=== PATIENT | female | born 1950 | race Caucasian/White ===

== ENCOUNTER 2020-03-14 14:07 | Inpatient (IN) | payer MEDICARE, MEDICAID ==
[2020-03-14] MEDS ORDERED: Albuterol/Ipratropium 3.0-0.5 MG/3 ML Neb Soln NEB ONE ×2 (14:12→15:27)
[2020-03-14] MEDS ORDERED: methylPREDNISolone Sodium Succinate 125 MG/2 ML SDV IVPUSH ONE (14:13)
--- NOTE | 2020-03-14 14:19 | EDM.PDOC ---
ED HPI GENERAL MEDICAL PROBLEM - General Chief Complaint: Respiratory Problem Stated Complaint: [facility] Time Seen by Provider: 03/14/20 14:10 Source of Information: Reports: Patient, EMS History Limitations: Reports: No Limitations - History of Present Illness INITIAL COMMENTS - FREE TEXT/NARRATIVE: Angie is a 70 year old female, hx of COPD, presents to the ED today via EMS with progressive sob over the last few days. Patient denies any chest pain, fever, more productive cough. Patient denies any sick exposures, she no longer smokes. Patient is on 3 liters of oxygen chronically. Patient is not on oral steroids, does not have a neb machine at home. Any activity makes her worse. Onset: Gradual Duration: Day(s): (5) generalized Pain Score (Numeric/FACES): 3 - Related Data Allergies Allergy/AdvReac Type Severity Reaction Status Date / Time Penicillins Allergy Rash Verified 03/14/20 14:09 Home Meds: Home Meds Ascorbic Acid [Vitamin C] 1,000 mg PO DAILY 09/10/13 [History] Aspirin [[place] Chewable Aspirin] 1 tab PO DAILY 09/10/13 [History] Cholecalciferol (Vitamin D3) [Vitamin D-3] 2,000 unit PO DAILY 09/10/13 [History ] Multivitamin with Minerals [Multiple Vitamin] 1 tab PO DAILY 09/10/13 [History] Tiotropium [Spiriva Handihaler] 1 cap INH DAILY 09/10/13 [History] Levothyroxine Sodium [Synthroid] 100 mcg PO ACBREAKFAST 02/25/17 [History] Metoprolol Succinate [Toprol XL] 25 mg PO DAILY 02/25/17 [History] hydroCHLOROthiazide [Hydrochlorothiazide] 25 mg PO DAILY 02/25/17 [History] Calcium/Magnesium/Zinc [Fmimmlm-Jndatzyig-Oqwn Tab] 1 each PO DAILY 07/04/18 [ History] Citalopram Hydrobromide [Celexa] 10 mg PO DAILY 07/04/18 [History] atorvaSTATin [Lipitor] 40 mg PO ASDIRECTED 07/04/18 [History] Omeprazole 20 mg PO DAILY 03/14/20 [History] ED ROS GENERAL - Review of Systems Review Of Systems: Comprehensive ROS is negative, except as noted in HPI. ED EXAM, GENERAL - Physical Exam Exam: See Below Exam Limited By: No Limitations General Appearance: Anxious, Moderate Distress (Respiratory) Head: Atraumatic Neck: Normal Inspection, Supple Respiratory/Chest: Respiratory Distress, Other (moving little to no air on arrival throughout lung rodriguez) Cardiovascular: Tachycardia GI/Abdominal: Normal Bowel Sounds, Soft, Non-Tender Extremities: Normal Inspection Neurological: Alert, Oriented, CN II-XII Intact Psychiatric: Normal Affect, Anxious Skin Exam: Warm, Dry, Intact Lymphatic: No Adenopathy Course - Vital Signs Last Recorded V/S: Last Vital Signs Temp 36.1 C 03/14/20 14:14 Pulse 108 H 03/14/20 15:38 Resp 12 03/14/20 15:38 BP 118/62 03/14/20 15:38 Pulse Ox 95 03/14/20 15:38 Angie is a 70 year old female, hx of COPD, increasing sob over the last few days , worse today. Please refer to HPI and focused exam. Patient arrives here tachypneic, worse with activity. Patient is mildly tachycardic. Normotensive. Concern for COPD exacerbation, however, non pitting edema present with her aortic aneurysm/heart hx concern for CHF exacerbation component, vs. pneumonia. Patient not hypoxic on 3 liters here however very tachypneic especially with any movement or conversation. VBG returns with acidosis, PH of 7.153, normal white count, stable HGB for patient, x-ray returns with ? atelectasis vs. infiltrate. Pro-BNP elevated, 2700. Patient started on Rocephin and Zithromax to cover for CAP/COPD exacerbation pending procalcitonin. Patient also received 125 mg of Solumedrol. Patient's breathing vastly improved after second Duo Neb. Will hold off on any bipap for now and watch closely. Patient updated on plan of care and is agreeable, patient admitted to Dr. Gómez, hospitalist. - Orders/Labs/Meds Orders: Active Orders 24 hr Category Date Time Status BIPAP Adult [RT BiPAP/CPAP] [RC] ASDIRECTED Care 03/14/20 15:50 Active RT Aerosol Therapy [RC] ASDIRECTED Care 03/14/20 14:12 Active RT Aerosol Therapy [RC] ASDIRECTED Care 03/14/20 15:27 Active BLOOD GAS ARTERIAL [BG] Stat Lab 03/14/20 15:48 Ordered CORONAVIRUS COVID-19, NAMITA Stat Lab 03/14/20 15:49 Ordered PROCALCITONIN [CHEM] Stat Lab 03/14/20 15:48 Ordered Azithromycin [Zithromax] 500 mg Med 03/14/20 15:39 Active Sodium Chloride 0.9% [Normal Saline] 250 ml IV ONETIME cefTRIAXone [Rocephin] 2 gm Med 03/14/20 15:38 Active Sodium Chloride 0.9% [Normal Saline] 50 ml IV ONETIME Medication Orders Azithromycin 500 mg/ Sodium (Chloride) 250 mls @ 250 mls/hr IV ONETIME ONE Stop: 03/14/20 16:38 Ceftriaxone Sodium 2 gm/ (Sodium Chloride) 50 mls @ 100 mls/hr IV ONETIME ONE Stop: 03/14/20 16:07 Labs: Laboratory Tests 03/14/20 03/14/20 03/14/20 Range/Units 14:14 14:27 14:27 WBC 4.5 (4.5-11.0) K/uL RBC 3.39 (3.30-5.50) M/uL Hgb 11.1 L (12.0-15.0) g/dL Hct 38.5 (36.0-48.0) % MCV 114 H (80-98) fL MCH 33 H (27-31) pg MCHC 29 L (32-36) % Plt Count 121 L (150-400) K/uL Neut % (Auto) 72 H (36-66) % Lymph % (Auto) 14 L (24-44) % [place] % (Auto) 13 H (2-6) % Eos % (Auto) 1 L (2-4) % Baso % (Auto) 0 (0-1) % ABG Hemoglobin (12.0-16.0) g/dL ABG Oxyhemoglobin % ABG Carboxyhemoglobin (0.0-1.6) % ABG Methemoglobin % VBG pH (7.350-7.450) VBG pCO2 mm/Hg VBG pO2 mm/Hg VBG HCO3 mmol/L VBG Total CO2 mmol/L VBG O2 Saturation VBG O2 Content %vol VBG Base Excess mm/L O2 Delivery Device Sodium (140-148) mmol/L Potassium (3.6-5.2) mmol/L Chloride (100-108) mmol/L Carbon Dioxide (21-32) mmol/L Anion Gap (5.0-14.0) mmol/L BUN (7-18) mg/dL Creatinine (0.6-1.0) mg/dL Est Cr Clr Drug Dosing mL/min Estimated GFR (MDRD) (>60) Glucose (74-106) mg/dL Lactic Acid (0.4-2.0) mmol/L Calcium (8.5-10.1) mg/dL Total Bilirubin (0.2-1.0) mg/dL AST (15-37) U/L ALT (12-78) U/L Alkaline Phosphatase (46-116) U/L Troponin I < 0.017 (0.000-0.056) ng/mL NT-Pro-B Natriuret Pep 2715 H (5-125) pg/mL Total Protein (6.4-8.2) g/dL Albumin (3.4-5.0) g/dL Globulin (2.3-3.5) g/dL Albumin/Globulin Ratio (1.2-2.2) 03/14/20 03/14/20 03/14/20 Range/Units 14:27 14:27 14:30 WBC (4.5-11.0) K/uL RBC (3.30-5.50) M/uL Hgb (12.0-15.0) g/dL Hct (36.0-48.0) % MCV (80-98) fL MCH (27-31) pg MCHC (32-36) % Plt Count (150-400) K/uL Neut % (Auto) (36-66) % Lymph % (Auto) (24-44) % [place] % (Auto) (2-6) % Eos % (Auto) (2-4) % Baso % (Auto) (0-1) % ABG Hemoglobin 9.6 L (12.0-16.0) g/dL ABG Oxyhemoglobin 30.9 % ABG Carboxyhemoglobin 3.4 H (0.0-1.6) % ABG Methemoglobin 0.7 % VBG pH 7.153 L (7.350-7.450) VBG pCO2 113 mm/Hg VBG pO2 24.8 mm/Hg VBG HCO3 38.0 mmol/L VBG Total CO2 38.1 mmol/L VBG O2 Saturation 32.2 VBG O2 Content 4.2 %vol VBG Base Excess 6.9 mm/L O2 Delivery Device Nasal cannula Sodium 144 (140-148) mmol/L Potassium 4.1 (3.6-5.2) mmol/L Chloride 99 L (100-108) mmol/L Carbon Dioxide > 45 H (21-32) mmol/L Anion Gap 4.1 L (5.0-14.0) mmol/L BUN 23 H (7-18) mg/dL Creatinine 0.7 (0.6-1.0) mg/dL Est Cr Clr Drug Dosing 67.29 mL/min Estimated GFR (MDRD) > 60 (>60) Glucose 102 (74-106) mg/dL Lactic Acid 0.7 (0.4-2.0) mmol/L Calcium 9.0 (8.5-10.1) mg/dL Total Bilirubin 0.8 (0.2-1.0) mg/dL AST 27 (15-37) U/L ALT 26 (12-78) U/L Alkaline Phosphatase 83 (46-116) U/L Troponin I (0.000-0.056) ng/mL NT-Pro-B Natriuret Pep (5-125) pg/mL Total Protein 7.5 (6.4-8.2) g/dL Albumin 3.7 (3.4-5.0) g/dL Globulin 3.8 H (2.3-3.5) g/dL Albumin/Globulin Ratio 1.0 L (1.2-2.2) Meds: Medications Generic Name Dose Route Start Last Admin Trade Name Freq PRN Reason Stop Dose Admin Azithromycin 500 mg/ Sodium 250 mls @ 250 mls/hr 03/14/20 15:39 Chloride IV 03/14/20 16:38 ONETIME ONE Ceftriaxone Sodium 2 gm/ 50 mls @ 100 mls/hr 03/14/20 15:38 Sodium Chloride IV 03/14/20 16:07 ONETIME ONE Discontinued Medications Generic Name Dose Route Start Last Admin Trade Name Freq PRN Reason Stop Dose Admin Albuterol/Ipratropium 3 ml 03/14/20 14:12 03/14/20 14:30 Duoneb 3.0-0.5 Mg/3 Ml NEB 03/14/20 14:13 3 ml ONETIME ONE Administration Albuterol/Ipratropium 3 ml 03/14/20 15:27 03/14/20 15:38 Duoneb 3.0-0.5 Mg/3 Ml NEB 03/14/20 15:28 3 ml ONETIME ONE Administration Methylprednisolone Sodium Succinate 125 mg 03/14/20 14:13 03/14/20 14:41 Solu-Medrol IVPUSH 03/14/20 14:14 125 mg ONETIME ONE Administration Departure - Departure Time of Disposition: 17:00 Disposition: Admitted As Inpatient 66 Condition: Fair Clinical Impression: COPD exacerbation, Elevated brain natriuretic peptide (BNP) level Pneumonia Qualifiers: Pneumonia type: due to unspecified organism Laterality: bilateral Lung location : lower lobe of lung Qualified Code(s): J18.9 - Pneumonia, unspecified organism - Discharge Information Referrals: PCP,None [Primary Care Provider] - Forms: ED Department Discharge Sepsis Event Note (ED) - Focused Exam Vital Signs: Vital Signs Temp Pulse Resp BP Pulse Ox Pulse Ox 03/14/20 15:38 108 H 12 118/62 95 03/14/20 14:42 104 H 14 118/62 98 03/14/20 14:31 114 H 99 03/14/20 14:14 36.1 C 111 H 20 121/61 97 03/14/20 14:10 36.1 C 111 H 20 121/61 97 - My Orders Last 24 Hours: My Active Orders 03/14/20 14:12 RT Aerosol Therapy [RC] ASDIRECTED 03/14/20 15:27 RT Aerosol Therapy [RC] ASDIRECTED 03/14/20 15:38 cefTRIAXone [Rocephin] 2 gm Sodium Chloride 0.9% [Normal Saline] 50 ml IV ONETIME 03/14/20 15:39 Azithromycin [Zithromax] 500 mg Sodium Chloride 0.9% [Normal Saline] 250 ml IV ONETIME 03/14/20 15:48 BLOOD GAS ARTERIAL [BG] Stat PROCALCITONIN [CHEM] Stat 03/14/20 15:49 CORONAVIRUS COVID-19, NAMITA Stat 03/14/20 15:50 BIPAP Adult [RT BiPAP/CPAP] [RC] ASDIRECTED - Assessment/Plan Last 24 Hours: My Active Orders 03/14/20 14:12 RT Aerosol Therapy [RC] ASDIRECTED 03/14/20 15:27 RT Aerosol Therapy [RC] ASDIRECTED 03/14/20 15:38 cefTRIAXone [Rocephin] 2 gm Sodium Chloride 0.9% [Normal Saline] 50 ml IV ONETIME 03/14/20 15:39 Azithromycin [Zithromax] 500 mg Sodium Chloride 0.9% [Normal Saline] 250 ml IV ONETIME 03/14/20 15:48 BLOOD GAS ARTERIAL [BG] Stat PROCALCITONIN [CHEM] Stat 03/14/20 15:49 CORONAVIRUS COVID-19, NAMITA Stat 03/14/20 15:50 BIPAP Adult [RT BiPAP/CPAP] [RC] ASDIRECTED
--- NOTE | 2020-03-14 15:35 | CR ---
CHEST: 2 view CLINICAL HISTORY:SOB COMPARISON:2017 FINDINGS: The heart is enlarged. Patient has had previous sternotomy. There has been stenting of the descending aortic arch and thoracic aorta. Aorta is very ectatic. Lungs are emphysematous. There is patchy densities in both lung bases. Some of this appears chronic. Pulmonary vascularity is normal. There are no effusions. Impression: Cardiomegaly Previous sternotomy Previous aortic stenting Changes of COPD Patchy bibasal densities. Some of this appears to be some patchy fibrosis and scarring. Some minimal infiltrate or patchy atelectasis in the right lower lobe is not excluded
[2020-03-14] MEDS ORDERED: cefTRIAXone 2 GM in Sodium Chloride 0.9% 50 ML IV ONE (15:38)
[2020-03-14] MEDS ORDERED: Azithromycin 500 MG in Sodium Chloride 0.9% 250 ML IV ONE (15:39)
--- NOTE | 2020-03-14 16:08 | PCM.HP.2 ---
H&P History of Present Illness - General Date of Service: 03/14/20 Admit Problem/Dx: Admission Diagnosis/Problem Admission Diagnosis/Problem Hypoxia Source of Information: Patient, Provider, RN Notes Reviewed History Limitations: Reports: No Limitations - History of Present Illness Initial Comments - Free Text/Narative: Ms. English is a 70-year-old woman who was admitted through the emergency department for further evaluation management of increased shortness of breath and weakness, secondary to COPD exacerbation and possible underlying pulmonary infection. She has a known and longstanding history of oxygen dependent COPD. She also has had a history of thoracic aortic aneurysm status post stenting procedures. She reports progressive increase in shortness of breath and weakness over the past several months, significantly worse over the past 2 weeks. Recently she is struggled to even perform the most simple tasks around the house and can walk only a very short distance before she has to stop to rest because of dyspnea. Typically she uses oxygen at 2 L/min and has increased that over the last 2 weeks to 3 L/min without significant benefit. She has noted some increase in peripheral edema. She denies any symptoms of chest pain or pressure pleuritic chest pain, fever, chills, or sweats. She has been experiencing some abdominal pain across the mid abdomen. This pain is worse with eating and she is able to eat only a small amount of food, before she feels full and nauseated. She is noted no other precipitating or relieving factors. In the emergency department was noted to be hypoxic and labs show significant hypercapnia. Chest x-ray shows evidence of COPD, cardiac enlargement, pulmonary fibrosis, and possible infiltrate. generalized Pain Score (Numeric/FACES): 3 - Related Data Allergies/Adverse Reactions: Allergies Allergy/AdvReac Type Severity Reaction Status Date / Time Penicillins Allergy Rash Verified 03/14/20 14:09 Home Medications: Home Meds Ascorbic Acid [Vitamin C] 1,000 mg PO DAILY 09/10/13 [History] Aspirin [[place] Chewable Aspirin] 1 tab PO DAILY 09/10/13 [History] Cholecalciferol (Vitamin D3) [Vitamin D-3] 2,000 unit PO DAILY 09/10/13 [History ] Multivitamin with Minerals [Multiple Vitamin] 1 tab PO DAILY 09/10/13 [History] Tiotropium [Spiriva Handihaler] 1 cap INH DAILY 12/09/13 [History] Levothyroxine Sodium [Synthroid] 100 mcg PO ACBREAKFAST 02/25/17 [History] Metoprolol Succinate [Toprol XL] 25 mg PO DAILY 02/25/17 [History] hydroCHLOROthiazide [Hydrochlorothiazide] 25 mg PO DAILY 02/25/17 [History] Calcium/Magnesium/Zinc [Bxefgwq-Ugxhqcxsh-Hhem Tab] 1 each PO DAILY 07/04/18 [ History] Citalopram Hydrobromide [Celexa] 10 mg PO DAILY 07/04/18 [History] atorvaSTATin [Lipitor] 40 mg PO Q48H 07/04/18 [History] Omeprazole 20 mg PO DAILY 03/14/20 [History] Past Medical History Cardiovascular History: Reports: Afib, Aneurysm, High Cholesterol Respiratory History: Reports: COPD, Other (See Below) Other Respiratory History: home O2 at 3L Psychiatric History: Reports: Anxiety, Depression Endocrine/Metabolic History: Reports: Hypothyroidism - Past Surgical History Cardiovascular Surgical History: Reports: Other (See Below) Other Cardiovascular Surgeries/Procedures: open heart surgery GI Surgical History: Reports: None Social & Family History - Tobacco Use Smoking Status *Q: Never Smoker - Recreational Drug Use Recreational Drug Use: No H&P Review of Systems - Review of Systems: Review Of Systems: See Below General: Reports: Weakness, Fatigue, Decreased Appetite. Denies: Fever, Chills , Diaphoresis HEENT: Reports: No Symptoms Pulmonary: Reports: Shortness of Breath, Wheezing. Denies: Pleuritic Chest Pain , Cough, Sputum, Hemoptysis Cardiovascular: Reports: Palpitations, Dyspnea on Exertion, Edema. Denies: Chest Pain, Orthopnea, PND, Lightheadedness Gastrointestinal: Reports: Abdominal Pain, Nausea. Denies: Constipation, Diarrhea, Difficulty Swallowing, Distension, Hematemesis, Hematochezia, Melena, Vomiting Genitourinary: Reports: No Symptoms Musculoskeletal: Reports: No Symptoms Skin: Reports: Dryness Psychiatric: Reports: No Symptoms Neurological: Reports: No Symptoms Hematologic/Lymphatic: Reports: No Symptoms Immunologic: Reports: No Symptoms Exam - Exam Exam: See Below - Vital Signs Vital Signs: Last Vital Signs Temp 96.9 F 03/14/20 14:14 Pulse 108 H 03/14/20 15:38 Resp 12 03/14/20 15:38 BP 118/62 03/14/20 15:38 Pulse Ox 95 03/14/20 15:38 Weight: 170 lb - Exam Quality Assessment: Supplemental Oxygen, DVT Prophylaxis General: Alert, Oriented, Cooperative, Moderate Distress HEENT: Conjunctiva Clear, Hearing Intact, Mucosa Moist & [place], Normal Nasal Septum, Posterior Pharynx Clear, Pupils Equal Neck: Supple, Trachea Midline, +2 Carotid Pulse wo Bruit Lungs: Decreased Breath Sounds, Wheezing. No: Rales, Rhonchi, Rub Cardiovascular: Regular Rhythm, Normal S1, Normal S2, Tachycardia. No: Systolic Murmur, Diastolic Murmur GI/Abdominal Exam: Soft, No Organomegaly, Tender. No: Distended, Guarding, Rigid, Rebound Back Exam: Normal Inspection, Full Range of Motion Extremities: Non-Tender, Pedal Edema Skin: Warm, Dry, Intact Neurological: Cranial Nerves Intact, Strength Equal Bilateral, Normal Speech, Normal Tone, Sensation Intact. No: Focal Deficit Neuro Extensive - Mental Status: Alert, Oriented x3, Normal Mood/Affect, Normal Cognition, Memory Intact - Patient Data Lab Results Last 24 hrs: Laboratory Results - last 24 hr 03/14/20 03/14/20 03/14/20 Range/Units 14:14 14:27 14:27 WBC 4.5 (4.5-11.0) K/uL RBC 3.39 (3.30-5.50) M/uL Hgb 11.1 L (12.0-15.0) g/dL Hct 38.5 (36.0-48.0) % MCV 114 H (80-98) fL MCH 33 H (27-31) pg MCHC 29 L (32-36) % Plt Count 121 L (150-400) K/uL Neut % (Auto) 72 H (36-66) % Lymph % (Auto) 14 L (24-44) % [place] % (Auto) 13 H (2-6) % Eos % (Auto) 1 L (2-4) % Baso % (Auto) 0 (0-1) % Puncture Site ABG pH (7.350-7.450) ABG pCO2 (35.0-42.0) mmHg ABG pO2 (75.0-100.0) mmHg ABG HCO3 (22.0-26.0) mmol/L ABG Total CO2 (21.0-25.0) mmol/L ABG O2 Saturation (95.0-98.0) % ABG O2 Content (15.0-23.0) %vol ABG Base Excess mm/L ABG Hemoglobin (12.0-16.0) g/dL ABG Oxyhemoglobin % ABG Carboxyhemoglobin (0.0-1.6) % ABG Methemoglobin % Jutsus Test VBG pH (7.350-7.450) VBG pCO2 mm/Hg VBG pO2 mm/Hg VBG HCO3 mmol/L VBG Total CO2 mmol/L VBG O2 Saturation VBG O2 Content %vol VBG Base Excess mm/L O2 Delivery Device Oxygen Flow Rate L Sodium (140-148) mmol/L Potassium (3.6-5.2) mmol/L Chloride (100-108) mmol/L Carbon Dioxide (21-32) mmol/L Anion Gap (5.0-14.0) mmol/L BUN (7-18) mg/dL Creatinine (0.6-1.0) mg/dL Est Cr Clr Drug Dosing mL/min Estimated GFR (MDRD) (>60) Glucose (74-106) mg/dL Lactic Acid (0.4-2.0) mmol/L Calcium (8.5-10.1) mg/dL Total Bilirubin (0.2-1.0) mg/dL AST (15-37) U/L ALT (12-78) U/L Alkaline Phosphatase (46-116) U/L Troponin I < 0.017 (0.000-0.056) ng/mL NT-Pro-B Natriuret Pep 2715 H (5-125) pg/mL Total Protein (6.4-8.2) g/dL Albumin (3.4-5.0) g/dL Globulin (2.3-3.5) g/dL Albumin/Globulin Ratio (1.2-2.2) 03/14/20 03/14/20 03/14/20 Range/Units 14:27 14:27 14:30 WBC (4.5-11.0) K/uL RBC (3.30-5.50) M/uL Hgb (12.0-15.0) g/dL Hct (36.0-48.0) % MCV (80-98) fL MCH (27-31) pg MCHC (32-36) % Plt Count (150-400) K/uL Neut % (Auto) (36-66) % Lymph % (Auto) (24-44) % [place] % (Auto) (2-6) % Eos % (Auto) (2-4) % Baso % (Auto) (0-1) % Puncture Site ABG pH (7.350-7.450) ABG pCO2 (35.0-42.0) mmHg ABG pO2 (75.0-100.0) mmHg ABG HCO3 (22.0-26.0) mmol/L ABG Total CO2 (21.0-25.0) mmol/L ABG O2 Saturation (95.0-98.0) % ABG O2 Content (15.0-23.0) %vol ABG Base Excess mm/L ABG Hemoglobin 9.6 L (12.0-16.0) g/dL ABG Oxyhemoglobin 30.9 % ABG Carboxyhemoglobin 3.4 H (0.0-1.6) % ABG Methemoglobin 0.7 % [employer] Test VBG pH 7.153 L (7.350-7.450) VBG pCO2 113 mm/Hg VBG pO2 24.8 mm/Hg VBG HCO3 38.0 mmol/L VBG Total CO2 38.1 mmol/L VBG O2 Saturation 32.2 VBG O2 Content 4.2 %vol VBG Base Excess 6.9 mm/L O2 Delivery Device Nasal cannula Oxygen Flow Rate L Sodium 144 (140-148) mmol/L Potassium 4.1 (3.6-5.2) mmol/L Chloride 99 L (100-108) mmol/L Carbon Dioxide > 45 H (21-32) mmol/L Anion Gap 4.1 L (5.0-14.0) mmol/L BUN 23 H (7-18) mg/dL Creatinine 0.7 (0.6-1.0) mg/dL Est Cr Clr Drug Dosing 67.29 mL/min Estimated GFR (MDRD) > 60 (>60) Glucose 102 (74-106) mg/dL Lactic Acid 0.7 (0.4-2.0) mmol/L Calcium 9.0 (8.5-10.1) mg/dL Total Bilirubin 0.8 (0.2-1.0) mg/dL AST 27 (15-37) U/L ALT 26 (12-78) U/L Alkaline Phosphatase 83 (46-116) U/L Troponin I (0.000-0.056) ng/mL NT-Pro-B Natriuret Pep (5-125) pg/mL Total Protein 7.5 (6.4-8.2) g/dL Albumin 3.7 (3.4-5.0) g/dL Globulin 3.8 H (2.3-3.5) g/dL Albumin/Globulin Ratio 1.0 L (1.2-2.2) 03/14/20 Range/Units 16:01 WBC (4.5-11.0) K/uL RBC (3.30-5.50) M/uL Hgb (12.0-15.0) g/dL Hct (36.0-48.0) % MCV (80-98) fL MCH (27-31) pg MCHC (32-36) % Plt Count (150-400) K/uL Neut % (Auto) (36-66) % Lymph % (Auto) (24-44) % [place] % (Auto) (2-6) % Eos % (Auto) (2-4) % Baso % (Auto) (0-1) % Puncture Site Lt radial ABG pH 7.350 (7.350-7.450) ABG pCO2 80.7 H* (35.0-42.0) mmHg ABG pO2 67.9 L (75.0-100.0) mmHg ABG HCO3 43.4 H (22.0-26.0) mmol/L ABG Total CO2 40.2 H (21.0-25.0) mmol/L ABG O2 Saturation 91.4 L (95.0-98.0) % ABG O2 Content 14.0 L (15.0-23.0) %vol ABG Base Excess 14.9 mm/L ABG Hemoglobin 11.2 L (12.0-16.0) g/dL ABG Oxyhemoglobin 88.7 % ABG Carboxyhemoglobin 2.0 H (0.0-1.6) % ABG Methemoglobin 0.9 % Just[facility] Test Passed VBG pH (7.350-7.450) VBG pCO2 mm/Hg VBG pO2 mm/Hg VBG HCO3 mmol/L VBG Total CO2 mmol/L VBG O2 Saturation VBG O2 Content %vol VBG Base Excess mm/L O2 Delivery Device Nasal cannula Oxygen Flow Rate 3.0 L Sodium (140-148) mmol/L Potassium (3.6-5.2) mmol/L Chloride (100-108) mmol/L Carbon Dioxide (21-32) mmol/L Anion Gap (5.0-14.0) mmol/L BUN (7-18) mg/dL Creatinine (0.6-1.0) mg/dL Est Cr Clr Drug Dosing mL/min Estimated GFR (MDRD) (>60) Glucose (74-106) mg/dL Lactic Acid (0.4-2.0) mmol/L Calcium (8.5-10.1) mg/dL Total Bilirubin (0.2-1.0) mg/dL AST (15-37) U/L ALT (12-78) U/L Alkaline Phosphatase (46-116) U/L Troponin I (0.000-0.056) ng/mL NT-Pro-B Natriuret Pep (5-125) pg/mL Total Protein (6.4-8.2) g/dL Albumin (3.4-5.0) g/dL Globulin (2.3-3.5) g/dL Albumin/Globulin Ratio (1.2-2.2) Result Diagrams: 03/14/20 14:27 03/14/20 14:27 Sepsis Event Note - Evaluation Sepsis Screening Result: No Definite Risk - Focused Exam Vital Signs: Vital Signs Temp Pulse Resp BP Pulse Ox Pulse Ox 03/14/20 15:38 108 H 12 118/62 95 03/14/20 14:42 104 H 14 118/62 98 03/14/20 14:31 114 H 99 03/14/20 14:14 96.9 F 111 H 20 121/61 97 03/14/20 14:10 96.9 F 111 H 20 12161 97 Date Exam was Performed: 03/14/20 Time Exam was Performed: 17:29 *Q Meaningful Use (ADM) - VTE Risk Assess *Q Each Risk Factor Represents 1 Point: Swollen Legs, Current, Obesity ( BMI > 25 kg/m2), Abnormal Pulmonary Function (COPD) Total Score 1 Point Risk Factors: 3 Each Risk Factor Represents 2 Points: Age 60 - 74 Years Total Score 2 Point Risk Factors: 2 Each Risk Factor Represents 3 Points: None Total Score 3 Point Risk Factors: 0 Each Risk Factor Represents 5 Points: None Total Score 5 Point Risk Factors: 0 Venous Thromboembolism Risk Factor Score *Q: 5 Problem List Initiated/Reviewed/Updated: Yes Orders Last 24hrs: Active Orders 24 hr Category Date Time Status Patient Status Manage Transfer [TRANSFER] Routine ADT 03/14/20 15:59 Ordered BIPAP Adult [RT BiPAP/CPAP] [RC] ASDIRECTED Care 03/14/20 15:50 Active RT Aerosol Therapy [RC] ASDIRECTED Care 03/14/20 14:12 Active RT Aerosol Therapy [RC] ASDIRECTED Care 03/14/20 15:27 Active CORONAVIRUS COVID-19, NAMITA Stat Lab 03/14/20 15:49 Ordered PROCALCITONIN [CHEM] Stat Lab 03/14/20 15:48 Ordered Azithromycin [Zithromax] 500 mg Med 03/14/20 15:39 Active Sodium Chloride 0.9% [Normal Saline] 250 ml IV ONETIME Resuscitation Status Routine Resus Stat 03/14/20 16:01 Ordered Medication Orders Azithromycin 500 mg/ Sodium (Chloride) 250 mls @ 250 mls/hr IV ONETIME ONE Stop: 03/14/20 16:38 Assessment/Plan Comment:: ASSESSMENT AND PLAN ACUTE ON CHRONIC RESPIRATORY FAILURE WITH HYPOXIA AND HYPERCAPNIA-known history of oxygen dependent COPD progressive weakness and shortness of breath over the past year, significantly worse in the past few weeks. No recent fever chills or sweats. White blood cell count is within normal range and she has been afebrile in the emergency department. Chest x-ray shows evidence of COPD, cardiac enlargement, pulmonary fibrosis, and possible infiltrate. -COVID-19 testing pending -Blood cultures pending -Supplemental oxygen as needed -Nebulizer therapy -Solu-Medrol 40 mg IV every 6 hours -IV doxycycline and ceftriaxone pending culture results -CT scan of the chest with IV contrast -Echocardiogram when available on Tuesday -Consider use of noninvasive positive pressure ventilation if respiratory status worsens COPD EXACERBATION -Management as above ABDOMINAL PAIN-present over the past few months, progressively worse. She is able to eat only a small amount at any time. Will defer evaluation until respiratory status has stabilized -CT scan of abdomen and pelvis -EGD HISTORY OF THORACIC AORTIC ANEURYSM-status post surgical repair with stenting MAINTENANCE ISSUES -DVT prophylaxis; Lovenox 40 mg subcu daily -GI prophylaxis; continue outpatient PPI therapy -Burnett catheter; not indicated -Nutrition; 2 g sodium diet -Nicotine dependence; not required CODE STATUS-FULL CODE ADMISSION STATUS-patient will be admitted to inpatient status, expect at least a 2 night hospital stay for evaluation and management of problems as outlined above. At the time of this admission I do not reasonably expected evaluation and management of this problem will require more than a 96 hour hospital stay. DISPOSITION-anticipate discharge to home after the hospital stay. PRIMARY CARE PROVIDER-Alie Garcia - Mortality Measure Prognosis:: Poor
[2020-03-14] MEDS ORDERED: Non-Formulary Medication 1 Each (Atorvastatin [Lipitor] 40 MG) PO SCH (16:55)
[2020-03-14] MEDS ORDERED: Sodium Chloride 0.9% 10 ML Syringe FLUSH PRN (16:55)
[2020-03-14] MEDS ORDERED: Ondansetron 4 MG/2 ML SDV IV PRN (16:55)
[2020-03-14] MEDS ORDERED: Acetaminophen 325 MG Tab PO PRN (16:55)
[2020-03-14] MEDS ORDERED: Polyethylene Glycol 3350 Powder 17 GM Packet PO PRN (16:55)
[2020-03-14] MEDS ORDERED: Albuterol/Ipratropium 3.0-0.5 MG/3 ML Neb Soln INH ONE (17:00)
[2020-03-14] MEDS ORDERED: Iopamidol 755 Mg/ML 100 ML Bottle IV SCH (17:15)
[2020-03-14] MEDS ORDERED: Sodium Chloride 0.9% 100 ML IV SCH (17:15)
[2020-03-14] MEDS: Sodium Chloride 0.9% 1,000 ML IV SCH (18:30)
[2020-03-14] MEDS: Doxycycline 100 MG in Sodium Chloride 0.9% 100 ML IV SCH (18:32)
[2020-03-14] MEDS ORDERED: methylPREDNISolone Sodium Succinate 40 MG/1 ML SDV IVPUSH ONE (18:59)
[2020-03-14] MEDS: Enoxaparin 40 MG/0.4 ML Syringe SUBCUT SCH (19:07)
--- NOTE | 2020-03-14 19:54 | CRLCT ---
Exam: CT angiography of the chest with IV contrast. Clinical Information: Acute on chronic hypoxia. Comparison: CT angiography of the chest, abdomen, and pelvis with IV contrast dated 07/18/2017. Findings: Postoperative changes of ascending thoracic aortic graft repair which is not significantly changed since 07/18/2017. High-density debris about the ascending aortic graft was present on noncontrast CT on 07/18/2017 and consistent with postoperative changes. Aneurysmal dilatation of the [place] distal ascending thoracic aorta/proximal aortic arch measuring up to 5.4 cm compared with 5.0 cm on 07/18/2017. Postoperative changes of TEVAR extending just distal to the left common carotid artery to just above the celiac artery, as well as left subclavian to common carotid artery transposition. The visualized great vessels are patent other than the origin of the subclavian artery. Evaluation of the TEVAR is limited without multiphasic imaging. Since 07/18/2017, significant enlargement of the excluded descending thoracic aortic aneurysm measuring up to 9.4 cm proximally compared with 7.5 cm on 07/18/2017. The aneurysmal sac tapers to 5.2 cm at the distal aspect of the graft compared with 3.5 cm on 07/18/2017. High density fluid in the aneurysmal sac most likely represents a type 1b endoleak, and possibly a type 3 endoleak. Aneurysmal dilatation of the suprarenal abdominal aorta measuring 3.2 cm, not significantly changed since 07/18/2017. Normal caliber pulmonary arteries. No evidence of pulmonary embolism. Severe right atrial enlargement has increased since 07/18/2017. Mild left atrial enlargement, seen previously. The left atrial appendage has been resected. Abandoned epicardial pacer lead. Mild emphysematous changes in the lungs. Mild bibasilar atelectasis. 4 mm ground-glass nodule in the right lower lobe (series 5, image 69) is likely benign. The lungs are otherwise clear. Tiny left pleural effusion, decreased compared with 07/18/2017. No lymphadenopathy in the chest. Reflux of contrast into the hepatic veins suggestive of elevated right heart pressures. Trace free fluid about the spleen. The visualized upper abdomen is otherwise unremarkable. Sternotomy. Mild degenerative changes throughout the visualized spine. Right thoracic curve. The visualized osseous structures are otherwise unremarkable. Bilateral breast implants. Impression: 1. Stable postoperative changes of ascending thoracic aortic graft repair. 2. Aneurysmal dilatation of the [place] distal ascending thoracic aorta/proximal aortic arch measuring up to 5.4 cm compared with 5.0 cm on 07/18/2017. 3. Postoperative changes of TEVAR and left subclavian to common carotid artery transposition with significant enlargement of the descending thoracic aortic aneurysmal sac since 07/18/2017 now measuring up to 9.4 cm proximally compared with 7.5 cm previously, likely due to a 1b endoleak, and possibly a type 3 endoleak. 3. Stable aneurysmal dilatation of the suprarenal abdominal aorta measuring 3.2 cm. 4. Mild emphysematous changes in the lungs. 5. Severe right atrial enlargement has increased since 07/18/2017. Stable mild left atrial enlargement. Findings discussed with Dr. Gómez by phone at 7:50 pm on 03/14/2020. Please note that all CT scans at this facility use dose modulation, iterative reconstruction, and/or weight-based dosing when appropriate to reduce radiation dose to as low as reasonably achievable. Dictated by Justus Valdez MD @ Mar 15 2020 9:47AM (Electronically Signed)
[2020-03-14] MEDS ORDERED: Digoxin 500 MCG/2 ML Amp IVPUSH ONE (19:55)
[2020-03-14] MEDS ORDERED: Lactated Ringers 500 ML IV ONE (20:00)
[2020-03-14] MEDS ORDERED: Digoxin 500 MCG/2 ML Amp ONE (20:05)
[2020-03-14] MEDS ORDERED: Albuterol/Ipratropium 3.0-0.5 MG/3 ML Neb Soln ONE (20:12)
[2020-03-14] MEDS ORDERED: methylPREDNISolone Sodium Succinate 40 MG/1 ML SDV IVPUSH SCH (21:00)
[2020-03-14] MEDS: LORazepam 0.5 MG Tab PO PRN (21:56)
[2020-03-15] MEDS: methylPREDNISolone Sodium Succinate 40 MG/1 ML SDV IVPUSH SCH ×5 (01:00→23:52)
[2020-03-15] MEDS: Sodium Chloride 0.9% 1,000 ML IV SCH (04:17)
[2020-03-15] MEDS: Doxycycline 100 MG in Sodium Chloride 0.9% 100 ML IV SCH ×2 (06:18→17:41)
[2020-03-15] MEDS ORDERED: Glycopyrrolate 15.6 MCG Cap.W.Dev Kit of 6 IH SCH (07:00)
[2020-03-15] MEDS: Glycopyrrolate 15.6 MCG Cap.W.Dev Kit of 6 IH SCH ×2 (07:06→20:52)
[2020-03-15] MEDS: Pantoprazole 40 MG Tab.CR PO SCH (08:29)
[2020-03-15] MEDS: Levothyroxine 100 MCG Tab PO SCH (08:30)
[2020-03-15] MEDS: atorvaSTATin 20 MG Tab PO SCH (08:38)
[2020-03-15] MEDS: Aspirin 81 MG Tab.Chew PO SCH (08:39)
[2020-03-15] MEDS: Metoprolol Succinate 25 MG Tab.ER PO SCH (08:39)
[2020-03-15] MEDS: Hydrochlorothiazide 25 MG Tab PO SCH (08:40)
[2020-03-15] MEDS: Citalopram 10 MG Tab PO SCH (08:40)
[2020-03-15] MEDS ORDERED: Non-Formulary Medication 1 Each (Tiotropium [Spiriva Handihaler] 1 CAP) INH SCH (09:00)
[2020-03-15] MEDS ORDERED: Non-Formulary Medication 1 Each (Hydrochlorothiazide [Hydrochlorothiazide] 25 MG) PO SCH (09:00)
[2020-03-15] MEDS ORDERED: Non-Formulary Medication 1 Each (Omeprazole [Omeprazole] 20 MG) PO SCH (09:00)
--- NOTE | 2020-03-15 10:08 | PCM.PN ---
- General Info Date of Service: 03/15/20 Subjective Update: Ms. English has felt improved since admission yesterday, with less shortness of breath. After admission she did develop transient hypotension as well as atrial fibrillation with rapid ventricular response, rates of 140-150. Since then things have stabilized, heart rate is between 101 110 and blood pressures have been adequate. Functional Status: Reports: Tolerating Diet, Urinating - Review of Systems General: Reports: Weakness. Denies: Fever, Chills Pulmonary: Reports: Shortness of Breath, Wheezing. Denies: Pleuritic Chest Pain , Cough, Sputum, Hemoptysis Cardiovascular: Reports: Dyspnea on Exertion, Edema. Denies: Chest Pain, Palpitations, Orthopnea, PND, Lightheadedness Gastrointestinal: Reports: No Symptoms - Patient Data Vitals - Most Recent: Last Vital Signs Temp 97.1 F 03/15/20 08:00 Pulse 98 03/15/20 08:39 Resp 18 03/15/20 08:00 BP 101/57 L 03/15/20 08:39 Pulse Ox 93 L 03/15/20 08:00 Weight - Most Recent: 188 lb I&O - Last 24 Hours: Intake & Output 03/14/20 03/15/20 03/15/20 22:59 06:59 14:59 Intake Total 100 1843 Output Total 150 Balance -50 1843 Lab Results Last 24 Hours: Laboratory Results - last 24 hr 03/14/20 03/14/20 03/14/20 Range/Units 14:14 14:27 14:27 WBC 4.5 (4.5-11.0) K/uL RBC 3.39 (3.30-5.50) M/uL Hgb 11.1 L (12.0-15.0) g/dL Hct 38.5 (36.0-48.0) % MCV 114 H (80-98) fL MCH 33 H (27-31) pg MCHC 29 L (32-36) % Plt Count 121 L (150-400) K/uL Neut % (Auto) 72 H (36-66) % Lymph % (Auto) 14 L (24-44) % [place] % (Auto) 13 H (2-6) % Eos % (Auto) 1 L (2-4) % Baso % (Auto) 0 (0-1) % Puncture Site ABG pH (7.350-7.450) ABG pCO2 (35.0-42.0) mmHg ABG pO2 (75.0-100.0) mmHg ABG HCO3 (22.0-26.0) mmol/L ABG Total CO2 (21.0-25.0) mmol/L ABG O2 Saturation (95.0-98.0) % ABG O2 Content (15.0-23.0) %vol ABG Base Excess mm/L ABG Hemoglobin (12.0-16.0) g/dL ABG Oxyhemoglobin % ABG Carboxyhemoglobin (0.0-1.6) % ABG Methemoglobin % Justus Test VBG pH (7.350-7.450) VBG pCO2 mm/Hg VBG pO2 mm/Hg VBG HCO3 mmol/L VBG Total CO2 mmol/L VBG O2 Saturation VBG O2 Content %vol VBG Base Excess mm/L O2 Delivery Device Oxygen Flow Rate L Sodium (140-148) mmol/L Potassium (3.6-5.2) mmol/L Chloride (100-108) mmol/L Carbon Dioxide (21-32) mmol/L Anion Gap (5.0-14.0) mmol/L BUN (7-18) mg/dL Creatinine (0.6-1.0) mg/dL Est Cr Clr Drug Dosing mL/min Estimated GFR (MDRD) (>60) Glucose (74-106) mg/dL Lactic Acid (0.4-2.0) mmol/L Calcium (8.5-10.1) mg/dL Total Bilirubin (0.2-1.0) mg/dL AST (15-37) U/L ALT (12-78) U/L Alkaline Phosphatase (46-116) U/L Troponin I < 0.017 (0.000-0.056) ng/mL NT-Pro-B Natriuret Pep 2715 H (5-125) pg/mL Total Protein (6.4-8.2) g/dL Albumin (3.4-5.0) g/dL Globulin (2.3-3.5) g/dL Albumin/Globulin Ratio (1.2-2.2) Procalcitonin ng/mL 03/14/20 03/14/20 03/14/20 Range/Units 14:27 14:27 14:30 WBC (4.5-11.0) K/uL RBC (3.30-5.50) M/uL Hgb (12.0-15.0) g/dL Hct (36.0-48.0) % MCV (80-98) fL MCH (27-31) pg MCHC (32-36) % Plt Count (150-400) K/uL Neut % (Auto) (36-66) % Lymph % (Auto) (24-44) % [place] % (Auto) (2-6) % Eos % (Auto) (2-4) % Baso % (Auto) (0-1) % Puncture Site ABG pH (7.350-7.450) ABG pCO2 (35.0-42.0) mmHg ABG pO2 (75.0-100.0) mmHg ABG HCO3 (22.0-26.0) mmol/L ABG Total CO2 (21.0-25.0) mmol/L ABG O2 Saturation (95.0-98.0) % ABG O2 Content (15.0-23.0) %vol ABG Base Excess mm/L ABG Hemoglobin 9.6 L (12.0-16.0) g/dL ABG Oxyhemoglobin 30.9 % ABG Carboxyhemoglobin 3.4 H (0.0-1.6) % ABG Methemoglobin 0.7 % Justus Test VBG pH 7.153 L (7.350-7.450) VBG pCO2 113 mm/Hg VBG pO2 24.8 mm/Hg VBG HCO3 38.0 mmol/L VBG Total CO2 38.1 mmol/L VBG O2 Saturation 32.2 VBG O2 Content 4.2 %vol VBG Base Excess 6.9 mm/L O2 Delivery Device Nasal cannula Oxygen Flow Rate L Sodium 144 (140-148) mmol/L Potassium 4.1 (3.6-5.2) mmol/L Chloride 99 L (100-108) mmol/L Carbon Dioxide > 45 H (21-32) mmol/L Anion Gap 4.1 L (5.0-14.0) mmol/L BUN 23 H (7-18) mg/dL Creatinine 0.7 (0.6-1.0) mg/dL Est Cr Clr Drug Dosing 67.29 mL/min Estimated GFR (MDRD) > 60 (>60) Glucose 102 (74-106) mg/dL Lactic Acid 0.7 (0.4-2.0) mmol/L Calcium 9.0 (8.5-10.1) mg/dL Total Bilirubin 0.8 (0.2-1.0) mg/dL AST 27 (15-37) U/L ALT 26 (12-78) U/L Alkaline Phosphatase 83 (46-116) U/L Troponin I (0.000-0.056) ng/mL NT-Pro-B Natriuret Pep (5-125) pg/mL Total Protein 7.5 (6.4-8.2) g/dL Albumin 3.7 (3.4-5.0) g/dL Globulin 3.8 H (2.3-3.5) g/dL Albumin/Globulin Ratio 1.0 L (1.2-2.2) Procalcitonin ng/mL 03/14/20 03/14/20 03/15/20 Range/Units 15:48 16:01 06:11 WBC 3.6 L (4.5-11.0) K/uL RBC 3.08 L (3.30-5.50) M/uL Hgb 9.9 L (12.0-15.0) g/dL Hct 34.7 L (36.0-48.0) % MCV 113 H (80-98) fL MCH 32 H (27-31) pg MCHC 29 L (32-36) % Plt Count 111 L (150-400) K/uL Neut % (Auto) (36-66) % Lymph % (Auto) (24-44) % [place] % (Auto) (2-6) % Eos % (Auto) (2-4) % Baso % (Auto) (0-1) % Puncture Site Lt radial ABG pH 7.350 (7.350-7.450) ABG pCO2 80.7 H* (35.0-42.0) mmHg ABG pO2 67.9 L (75.0-100.0) mmHg ABG HCO3 43.4 H (22.0-26.0) mmol/L ABG Total CO2 40.2 H (21.0-25.0) mmol/L ABG O2 Saturation 91.4 L (95.0-98.0) % ABG O2 Content 14.0 L (15.0-23.0) %vol ABG Base Excess 14.9 mm/L ABG Hemoglobin 11.2 L (12.0-16.0) g/dL ABG Oxyhemoglobin 88.7 % ABG Carboxyhemoglobin 2.0 H (0.0-1.6) % ABG Methemoglobin 0.9 % Justus Test Passed VBG pH (7.350-7.450) VBG pCO2 mm/Hg VBG pO2 mm/Hg VBG HCO3 mmol/L VBG Total CO2 mmol/L VBG O2 Saturation VBG O2 Content %vol VBG Base Excess mm/L O2 Delivery Device Nasal cannula Oxygen Flow Rate 3.0 L Sodium (140-148) mmol/L Potassium (3.6-5.2) mmol/L Chloride (100-108) mmol/L Carbon Dioxide (21-32) mmol/L Anion Gap (5.0-14.0) mmol/L BUN (7-18) mg/dL Creatinine (0.6-1.0) mg/dL Est Cr Clr Drug Dosing mL/min Estimated GFR (MDRD) (>60) Glucose (74-106) mg/dL Lactic Acid (0.4-2.0) mmol/L Calcium (8.5-10.1) mg/dL Total Bilirubin (0.2-1.0) mg/dL AST (15-37) U/L ALT (12-78) U/L Alkaline Phosphatase (46-116) U/L Troponin I (0.000-0.056) ng/mL NT-Pro-B Natriuret Pep (5-125) pg/mL Total Protein (6.4-8.2) g/dL Albumin (3.4-5.0) g/dL Globulin (2.3-3.5) g/dL Albumin/Globulin Ratio (1.2-2.2) Procalcitonin 0.06 ng/mL 03/15/20 Range/Units 06:11 WBC (4.5-11.0) K/uL RBC (3.30-5.50) M/uL Hgb (12.0-15.0) g/dL Hct (36.0-48.0) % MCV (80-98) fL MCH (27-31) pg MCHC (32-36) % Plt Count (150-400) K/uL Neut % (Auto) (36-66) % Lymph % (Auto) (24-44) % [place] % (Auto) (2-6) % Eos % (Auto) (2-4) % Baso % (Auto) (0-1) % Puncture Site ABG pH (7.350-7.450) ABG pCO2 (35.0-42.0) mmHg ABG pO2 (75.0-100.0) mmHg ABG HCO3 (22.0-26.0) mmol/L ABG Total CO2 (21.0-25.0) mmol/L ABG O2 Saturation (95.0-98.0) % ABG O2 Content (15.0-23.0) %vol ABG Base Excess mm/L ABG Hemoglobin (12.0-16.0) g/dL ABG Oxyhemoglobin % ABG Carboxyhemoglobin (0.0-1.6) % ABG Methemoglobin % Justus Test VBG pH (7.350-7.450) VBG pCO2 mm/Hg VBG pO2 mm/Hg VBG HCO3 mmol/L VBG Total CO2 mmol/L VBG O2 Saturation VBG O2 Content %vol VBG Base Excess mm/L O2 Delivery Device Oxygen Flow Rate L Sodium 145 (140-148) mmol/L Potassium 4.5 (3.6-5.2) mmol/L Chloride 101 (100-108) mmol/L Carbon Dioxide 43 H (21-32) mmol/L Anion Gap 5.5 (5.0-14.0) mmol/L BUN 21 H (7-18) mg/dL Creatinine 0.8 (0.6-1.0) mg/dL Est Cr Clr Drug Dosing 58.88 mL/min Estimated GFR (MDRD) > 60 (>60) Glucose 151 H (74-106) mg/dL Lactic Acid (0.4-2.0) mmol/L Calcium 8.5 (8.5-10.1) mg/dL Total Bilirubin (0.2-1.0) mg/dL AST (15-37) U/L ALT (12-78) U/L Alkaline Phosphatase (46-116) U/L Troponin I (0.000-0.056) ng/mL NT-Pro-B Natriuret Pep (5-125) pg/mL Total Protein (6.4-8.2) g/dL Albumin (3.4-5.0) g/dL Globulin (2.3-3.5) g/dL Albumin/Globulin Ratio (1.2-2.2) Procalcitonin ng/mL Med Orders - Current: Current Medications Acetaminophen (Tylenol) 650 mg PO Q4H PRN PRN Reason: Pain (Mild 1-3)/fever Albuterol (Proventil Neb Soln) 2.5 mg NEB Q4H PRN PRN Reason: Shortness Of Breath/wheezing Aspirin (Aspirin) 81 mg PO DAILY [facility] Last Admin: 03/15/20 08:39 Dose: 81 mg Atorvastatin Calcium (Lipitor) 40 mg PO Q48H [facility] Last Admin: 03/15/20 08:38 Dose: 40 mg Citalopram Hydrobromide (Celexa) 10 mg PO DAILY [facility] Last Admin: 03/15/20 08:40 Dose: 10 mg Enoxaparin Sodium (Lovenox) 40 mg SUBCUT Q24H [facility] Last Admin: 03/14/20 19:07 Dose: 40 mg Glycopyrrolate (Seebri Neohaler) 15.6 mcg IH BIDRT [facility] Last Admin: 03/15/20 07:06 Dose: 1 cap Hydrochlorothiazide (Hydrochlorothiazide) 25 mg PO DAILY [facility] Last Admin: 03/15/20 08:40 Dose: 25 mg Ceftriaxone Sodium 1 gm/ (Sodium Chloride) 50 mls @ 100 mls/hr IV Q24H [facility] Doxycycline Hyclate 100 mg/ (Sodium Chloride) 100 mls @ 100 mls/hr IV Q12H [facility] Last Admin: 03/15/20 06:18 Dose: 100 mls/hr Lactobacillus Rhamnosus (Culturelle) 1 cap PO BID NIKA Levothyroxine Sodium (Synthroid) 100 mcg PO ACBREAKFAST [facility] Last Admin: 03/15/20 08:30 Dose: 100 mcg Lorazepam (Ativan) 0.5 mg PO Q4H PRN PRN Reason: Anxiety Last Admin: 03/14/20 21:56 Dose: 0.5 mg Methylprednisolone Sodium Succinate (Solu-Medrol) 40 mg IVPUSH Q6H [facility] Last Admin: 03/15/20 06:17 Dose: 40 mg Metoprolol Succinate (Toprol Xl) 25 mg PO DAILY [facility] Last Admin: 03/15/20 08:39 Dose: 25 mg Ondansetron HCl (Zofran) 4 mg IV Q4H PRN PRN Reason: Nausea/Vomiting Pantoprazole Sodium (Protonix) 40 mg PO ACBREAKFAST [facility] Last Admin: 03/15/20 08:29 Dose: 40 mg Polyethylene Glycol (Miralax) 17 gm PO DAILY PRN PRN Reason: Constipation Sodium Chloride (Saline Flush) 10 ml FLUSH ASDIRECTED PRN PRN Reason: Keep Vein Open Discontinued Medications Albuterol/Ipratropium (Duoneb 3.0-0.5 Mg/3 Ml) 3 ml NEB ONETIME ONE Stop: 03/14/20 14:13 Last Admin: 03/14/20 14:30 Dose: 3 ml Albuterol/Ipratropium (Duoneb 3.0-0.5 Mg/3 Ml) 3 ml NEB ONETIME ONE Stop: 03/14/20 15:28 Last Admin: 03/14/20 15:38 Dose: 3 ml Albuterol/Ipratropium (Duoneb 3.0-0.5 Mg/3 Ml) 3 ml INH ONETIME ONE Stop: 03/14/20 17:01 Last Admin: 03/14/20 20:15 Dose: 3 ml Albuterol/Ipratropium (Duoneb 3.0-0.5 Mg/3 Ml) Confirm Administered Dose 3 ml .ROUTE .STK-MED ONE Stop: 03/14/20 20:13 Last Admin: 03/14/20 20:21 Dose: Not Given Digoxin (Lanoxin) Confirm Administered Dose 500 mcg .ROUTE .STK-MED ONE Stop: 03/14/20 20:06 Last Admin: 03/14/20 20:21 Dose: Not Given Digoxin (Lanoxin) 250 mcg IVPUSH ONETIME ONE Stop: 03/14/20 19:56 Last Admin: 03/14/20 20:16 Dose: 250 mcg Ceftriaxone Sodium 2 gm/ (Sodium Chloride) 50 mls @ 100 mls/hr IV ONETIME ONE Stop: 03/14/20 16:07 Sodium Chloride (Normal Saline) 1,000 mls @ 125 mls/hr IV ASDIRECTED NIKA Last Admin: 03/15/20 04:17 Dose: 125 mls/hr Sodium Chloride (Normal Saline) 100 mls @ 3 mls/sec IV ASDIRECTED [facility] Last Admin: 03/14/20 18:16 Dose: 3 mls/sec Lactated Ringer's (Ringers, Lactated) 500 mls @ 999 mls/hr IV .BOLUS ONE Stop: 03/14/20 20:30 Last Admin: 03/14/20 20:08 Dose: 999 mls/hr Iopamidol (Isovue-370 (76%)) 100 ml IV . DIRECTED [facility] Last Admin: 03/14/20 18:16 Dose: 100 ml Methylprednisolone Sodium Succinate (Solu-Medrol) 125 mg IVPUSH ONETIME ONE Stop: 03/14/20 14:14 Last Admin: 03/14/20 14:41 Dose: 125 mg Methylprednisolone Sodium Succinate (Solu-Medrol) 40 mg IVPUSH Q6H [facility] Methylprednisolone Sodium Succinate (Solu-Medrol) 40 mg IVPUSH ONETIME ONE Stop: 03/14/20 19:00 Last Admin: 03/14/20 19:15 Dose: 40 mg - Exam Quality Assessment: DVT Prophylaxis General: Alert, Oriented, Cooperative, Moderate Distress Lungs: Decreased Breath Sounds, Wheezing. No: Rales, Rhonchi, Rub Cardiovascular: No Murmurs, Irregular Rhythm, Tachycardia GI/Abdominal Exam: Soft, Non-Tender, No Organomegaly, No Distention Extremities: Non-Tender, Pedal Edema Sepsis Event Note - Evaluation Sepsis Screening Result: Severe Sepsis Risk - Focused Exam Vital Signs: Vital Signs Temp Pulse Pulse Resp BP BP Pulse Ox 03/15/20 08:39 98 101/57 L 03/15/20 08:00 97.1 F 98 18 101/57 L 93 L 03/15/20 06:00 24 H 100/54 L 93 L 03/15/20 04:00 97.5 F 20 102/58 L 93 L 03/15/20 02:00 21 H 86/51 L 91 L 03/15/20 01:00 22 H 103/58 L 91 L 03/15/20 00:00 98.2 F 104/54 L 03/14/20 23:00 22 H 90/51 L 92 L Date Exam was Performed: 03/15/20 Time Exam was Performed: 10:04 - Problem List Review Problem List Initiated/Reviewed/Updated: Yes - My Orders Last 24 Hours: My Active Orders 03/14/20 16:01 Resuscitation Status Routine 03/14/20 16:55 Patient Status [ADT] Routine Ambulate [RC] QID Cardiac Monitoring [RC] Q6H Height and Weight [RC] DAILY Intake and Output [RC] QSHIFT Notify Provider Vital Signs [RC] ASDIRECTED Oxygen Therapy [RC] PRN Peripheral IV Care [RC] . DIRECTED Pulse Oximetry [RC] CONTINUOUS RT Aerosol Therapy [RC] ASDIRECTED Up With Assistance [RC] ASDIRECTED Up to Chair [RC] QID Vital Signs [RC] Q2H Acetaminophen [Tylenol] 650 mg PO Q4H PRN Albuterol [Proventil Neb Soln] 2.5 mg NEB Q4H PRN Ondansetron [Zofran] 4 mg IV Q4H PRN Sodium Chloride 0.9% [Saline Flush] 10 ml FLUSH ASDIRECTED PRN polyethylene glycoL 3350 [MiraLAX] 17 gm PO DAILY PRN Blood Culture x2 Reflex Set [OM.PC] Stat Peripheral IV Insertion Adult [OM.PC] Routine 03/14/20 18:00 Doxycycline [Vibramycin] 100 mg Sodium Chloride 0.9% [Normal Saline] 100 ml IV Q12H Enoxaparin [Lovenox] 40 mg SUBCUT Q24H 03/14/20 18:05 CULTURE BLOOD [BC] Stat CULTURE BLOOD [BC] Stat 03/14/20 19:30 LORazepam [Ativan] 0.5 mg PO Q4H PRN 03/14/20 Lunch 2 Gram Sodium Diet [DIET] 03/15/20 00:00 methylPREDNISolone Sod Succ [Solu-MEDROL] 40 mg IVPUSH Q6H 03/15/20 07:00 Glycopyrrolate [Seebri Neohaler] 15.6 mcg IH BIDRT 03/15/20 07:30 Levothyroxine [Synthroid] 100 mcg PO ACBREAKFAST Pantoprazole [ProTONIX] 40 mg PO ACBREAKFAST 03/15/20 09:00 Aspirin 81 mg PO DAILY Citalopram [Celexa] 10 mg PO DAILY Metoprolol Succinate [Toprol XL] 25 mg PO DAILY atorvaSTATin [Lipitor] 40 mg PO Q48H hydroCHLOROthiazide 25 mg PO DAILY 03/15/20 10:02 Convert IV to Saline Lock [OM.PC] Routine 03/15/20 10:15 Lactobacillus Rhamnosus GG [Culturelle] 1 cap PO BID 03/15/20 17:00 cefTRIAXone [Rocephin] 1 gm Sodium Chloride 0.9% [Normal Saline] 50 ml IV Q24H 03/16/20 05:00 BASIC METABOLIC PANEL,BMP [CHEM] Timed CBC WITH AUTO DIFF [HEME] Timed 03/17/20 08:00 Echo Comp wo Cont [US] Urgent - Plan Plan:: ASSESSMENT AND PLAN ACUTE ON CHRONIC RESPIRATORY FAILURE WITH HYPOXIA AND HYPERCAPNIA-known history of oxygen dependent COPD progressive weakness and shortness of breath over the past year, significantly worse in the past few weeks. No recent fever chills or sweats. White blood cell count is within normal range and she has been afebrile in the emergency department. The scan of the chest showed no evidence of pulmonary embolism or significant infiltrate. Scan did show increase in size of her thoracic aortic aneurysm compared to previous scan, she will require outpatient follow-up with her vascular surgeon. -Blood cultures pending -Supplemental oxygen as needed -Nebulizer therapy -Solu-Medrol 40 mg IV every 6 hours -IV doxycycline and ceftriaxone pending culture results -Echocardiogram when available on Tuesday -Consider use of noninvasive positive pressure ventilation if respiratory status worsens COPD EXACERBATION -Management as above ABDOMINAL PAIN-present over the past few months, progressively worse. She is able to eat only a small amount at any time. Will defer evaluation until respiratory status has stabilized -CT scan of abdomen and pelvis -EGD HISTORY OF THORACIC AORTIC ANEURYSM-status post surgical repair with stenting. CT scan shows enlargement compared to previous study. -Outpatient follow-up with her vascular surgeon MAINTENANCE ISSUES -DVT prophylaxis; Lovenox 40 mg subcu daily -GI prophylaxis; continue outpatient PPI therapy -Burnett catheter; not indicated -Nutrition; 2 g sodium diet -Nicotine dependence; not required CODE STATUS-FULL CODE ADMISSION STATUS-patient will be admitted to inpatient status, expect at least a 2 night hospital stay for evaluation and management of problems as outlined above. At the time of this admission I do not reasonably expected evaluation and management of this problem will require more than a 96 hour hospital stay. DISPOSITION-anticipate discharge to home after the hospital stay. PRIMARY CARE PROVIDER-Alie Garcia
[2020-03-15] MEDS: Lactobacillus Rhamnosus GG (Probiotic) Cap PO SCH ×2 (11:32→20:51)
[2020-03-15] MEDS: LORazepam 0.5 MG Tab PO PRN ×2 (11:32→19:53)
[2020-03-15] MEDS: cefTRIAXone 1 GM in Sodium Chloride 0.9% 50 ML IV SCH (16:29)
[2020-03-15] MEDS: Enoxaparin 40 MG/0.4 ML Syringe SUBCUT SCH (19:20)
[2020-03-16] MEDS: LORazepam 0.5 MG Tab PO PRN ×4 (02:05→23:31)
[2020-03-16] MEDS ORDERED: Diltiazem 25 MG/5 ML SDV IVPUSH ONE (05:40)
[2020-03-16] MEDS: Doxycycline 100 MG in Sodium Chloride 0.9% 100 ML IV SCH ×2 (05:43→17:55)
[2020-03-16] MEDS: methylPREDNISolone Sodium Succinate 40 MG/1 ML SDV IVPUSH SCH ×4 (05:43→23:31)
[2020-03-16] MEDS: Diltiazem 100 MG in Sodium Chloride 0.9% 100 ML IV SCH ×2 (05:53→15:56)
[2020-03-16] MEDS: Glycopyrrolate 15.6 MCG Cap.W.Dev Kit of 6 IH SCH ×2 (07:05→20:48)
[2020-03-16] MEDS: Levothyroxine 100 MCG Tab PO SCH (07:45)
[2020-03-16] MEDS: Pantoprazole 40 MG Tab.CR PO SCH (07:45)
[2020-03-16] MEDS: Metoprolol Succinate 25 MG Tab.ER PO SCH (08:40)
[2020-03-16] MEDS: Citalopram 10 MG Tab PO SCH (08:40)
[2020-03-16] MEDS: Lactobacillus Rhamnosus GG (Probiotic) Cap PO SCH ×2 (08:41→20:48)
[2020-03-16] MEDS: Aspirin 81 MG Tab.Chew PO SCH (08:41)
[2020-03-16] MEDS: Hydrochlorothiazide 25 MG Tab PO SCH (08:42)
[2020-03-16] MEDS ORDERED: Furosemide 20 MG/2 ML VIAL IVPUSH ONE (09:14)
--- NOTE | 2020-03-16 12:20 | PCM.PN ---
- General Info Date of Service: 03/16/20 Subjective Update: Ms. English continues to experience significant respiratory compromise. She was more lethargic this morning blood gases were obtained and her PCO2 level had increased to 93 and pH was more acidotic. We did give her a trial of noninvasive positive pressure ventilation this morning which she had difficulty tolerating and did not feel that it was overly helpful. Nursing staff has been careful about keeping oxygen saturations in the range of 88 to 90%. Follow-up chest x-ray obtained this morning does show evidence of bilateral infiltrates consistent with pneumonia. Infiltrates were not seen on initial chest x-ray or CT scan but have likely become more apparent after hydration hydration. We did discuss CODE STATUS again this morning, if she has worsening of her respiratory compromise she would like intubation and mechanical ventilation if needed. Functional Status: Reports: Tolerating Diet, Urinating. Denies: Ambulating - Review of Systems General: Reports: Weakness, Fatigue. Denies: Fever, Chills Pulmonary: Reports: Shortness of Breath, Wheezing. Denies: Pleuritic Chest Pain , Cough, Sputum, Hemoptysis Cardiovascular: Reports: Dyspnea on Exertion. Denies: Chest Pain, Palpitations , Orthopnea, PND, Edema, Lightheadedness Gastrointestinal: Reports: Abdominal Pain, Decreased Appetite, Nausea. Denies: Diarrhea, Difficulty Swallowing, Vomiting - Patient Data Vitals - Most Recent: Last Vital Signs Temp 97.5 F 03/16/20 04:00 Pulse 97 03/16/20 08:40 Resp 17 03/16/20 06:18 BP 119/75 03/16/20 08:40 Pulse Ox 91 L 03/16/20 06:18 Weight - Most Recent: 188 lb I&O - Last 24 Hours: Intake & Output 03/15/20 03/16/20 03/16/20 22:59 06:59 14:59 Intake Total 1310 200 Output Total 100 Balance 1210 200 Lab Results Last 24 Hours: Laboratory Results - last 24 hr 03/16/20 03/16/20 03/16/20 Range/Units 04:52 04:52 08:24 WBC 8.4 (4.5-11.0) K/uL RBC 3.47 (3.30-5.50) M/uL Hgb 11.5 L (12.0-15.0) g/dL Hct 38.8 (36.0-48.0) % MCV 112 H (80-98) fL MCH 33 H (27-31) pg MCHC 30 L (32-36) % Plt Count 147 L (150-400) K/uL Neut % (Auto) 90 H (36-66) % Lymph % (Auto) 6 L (24-44) % [place] % (Auto) 5 (2-6) % Eos % (Auto) 0 L (2-4) % Baso % (Auto) 0 (0-1) % Puncture Site Rt radial ABG pH 7.274 L (7.350-7.450) ABG pCO2 93.6 H* (35.0-42.0) mmHg ABG pO2 64.2 L (75.0-100.0) mmHg ABG HCO3 41.9 H (22.0-26.0) mmol/L ABG Total CO2 39.1 H (21.0-25.0) mmol/L ABG O2 Saturation 88.6 L (95.0-98.0) % ABG O2 Content 14.7 L (15.0-23.0) %vol ABG Base Excess 11.8 mm/L ABG Hemoglobin 12.1 (12.0-16.0) g/dL ABG Oxyhemoglobin 86.5 % ABG Carboxyhemoglobin 1.6 (0.0-1.6) % ABG Methemoglobin 0.8 % Justus Test Performed O2 Delivery Device Nasal cannula Sodium 144 (140-148) mmol/L Potassium 4.7 (3.6-5.2) mmol/L Chloride 102 (100-108) mmol/L Carbon Dioxide 42 H (21-32) mmol/L Anion Gap 4.7 L (5.0-14.0) mmol/L BUN 26 H (7-18) mg/dL Creatinine 0.9 (0.6-1.0) mg/dL Est Cr Clr Drug Dosing 52.34 mL/min Estimated GFR (MDRD) > 60 (>60) Glucose 147 H (74-106) mg/dL Calcium 8.7 (8.5-10.1) mg/dL Vikas Results Last 24 Hours: Microbiology 03/14/20 18:05 Aerobic Blood Culture - Preliminary Blood - Venous NO GROWTH AFTER 1 DAY Anaerobic Blood Culture - Preliminary NO GROWTH AFTER 1 DAY 03/14/20 18:05 Aerobic Blood Culture - Preliminary Blood - Venous - Lab Draw NO GROWTH AFTER 1 DAY Anaerobic Blood Culture - Preliminary NO GROWTH AFTER 1 DAY Med Orders - Current: Current Medications Acetaminophen (Tylenol) 650 mg PO Q4H PRN PRN Reason: Pain (Mild 1-3)/fever Albuterol (Proventil Neb Soln) 2.5 mg NEB Q4H PRN PRN Reason: Shortness Of Breath/wheezing Aspirin (Aspirin) 81 mg PO DAILY [facility] Last Admin: 03/16/20 08:41 Dose: 81 mg Atorvastatin Calcium (Lipitor) 40 mg PO Q48H [facility] Last Admin: 03/15/20 08:38 Dose: 40 mg Citalopram Hydrobromide (Celexa) 10 mg PO DAILY [facility] Last Admin: 03/16/20 08:40 Dose: 10 mg Enoxaparin Sodium (Lovenox) 40 mg SUBCUT Q24H [facility] Last Admin: 03/15/20 19:20 Dose: 40 mg Glycopyrrolate (Seebri Neohaler) 15.6 mcg IH BIDRT [facility] Last Admin: 03/16/20 07:05 Dose: 1 cap Hydrochlorothiazide (Hydrochlorothiazide) 25 mg PO DAILY [facility] Last Admin: 03/16/20 08:42 Dose: 25 mg Ceftriaxone Sodium 1 gm/ (Sodium Chloride) 50 mls @ 100 mls/hr IV Q24H [facility] Last Admin: 03/15/20 16:29 Dose: 100 mls/hr Doxycycline Hyclate 100 mg/ (Sodium Chloride) 100 mls @ 100 mls/hr IV Q12H [facility] Last Admin: 03/16/20 05:43 Dose: 100 mls/hr Diltiazem HCl 100 mg/ Sodium (Chloride) 100 mls @ 5 mls/hr IV TITRATE [facility]; Protocol Last Titration: 03/16/20 08:00 Dose: 10 mg/hr, 10 mls/hr Lactobacillus Rhamnosus (Culturelle) 1 cap PO BID [facility] Last Admin: 03/16/20 08:41 Dose: 1 cap Levothyroxine Sodium (Synthroid) 100 mcg PO ACBREAKFAST [facility] Last Admin: 03/16/20 07:45 Dose: 100 mcg Lorazepam (Ativan) 0.5 mg PO Q4H PRN PRN Reason: Anxiety Last Admin: 03/16/20 09:38 Dose: 0.5 mg Methylprednisolone Sodium Succinate (Solu-Medrol) 40 mg IVPUSH Q6H [facility] Last Admin: 03/16/20 05:43 Dose: 40 mg Metoprolol Succinate (Toprol Xl) 25 mg PO DAILY [facility] Last Admin: 03/16/20 08:40 Dose: 25 mg Ondansetron HCl (Zofran) 4 mg IV Q4H PRN PRN Reason: Nausea/Vomiting Pantoprazole Sodium (Protonix) 40 mg PO ACBREAKFAST [facility] Last Admin: 03/16/20 07:45 Dose: 40 mg Polyethylene Glycol (Miralax) 17 gm PO DAILY PRN PRN Reason: Constipation Sodium Chloride (Saline Flush) 10 ml FLUSH ASDIRECTED PRN PRN Reason: Keep Vein Open Discontinued Medications Albuterol/Ipratropium (Duoneb 3.0-0.5 Mg/3 Ml) 3 ml NEB ONETIME ONE Stop: 03/14/20 14:13 Last Admin: 03/14/20 14:30 Dose: 3 ml Albuterol/Ipratropium (Duoneb 3.0-0.5 Mg/3 Ml) 3 ml NEB ONETIME ONE Stop: 03/14/20 15:28 Last Admin: 03/14/20 15:38 Dose: 3 ml Albuterol/Ipratropium (Duoneb 3.0-0.5 Mg/3 Ml) 3 ml INH ONETIME ONE Stop: 03/14/20 17:01 Last Admin: 03/14/20 20:15 Dose: 3 ml Albuterol/Ipratropium (Duoneb 3.0-0.5 Mg/3 Ml) Confirm Administered Dose 3 ml .ROUTE .STK-MED ONE Stop: 03/14/20 20:13 Last Admin: 03/14/20 20:21 Dose: Not Given Digoxin (Lanoxin) Confirm Administered Dose 500 mcg .ROUTE .STK-MED ONE Stop: 03/14/20 20:06 Last Admin: 03/14/20 20:21 Dose: Not Given Digoxin (Lanoxin) 250 mcg IVPUSH ONETIME ONE Stop: 03/14/20 19:56 Last Admin: 03/14/20 20:16 Dose: 250 mcg Diltiazem HCl (Diltiazem) 10 mg IVPUSH ONETIME ONE Stop: 03/16/20 05:41 Last Admin: 03/16/20 05:55 Dose: 10 mg Furosemide (Lasix) 20 mg IVPUSH NOW ONE Stop: 03/16/20 09:15 Last Admin: 03/16/20 09:33 Dose: 20 mg Ceftriaxone Sodium 2 gm/ (Sodium Chloride) 50 mls @ 100 mls/hr IV ONETIME ONE Stop: 03/14/20 16:07 Last Admin: 03/14/20 18:00 Dose: 100 mls/hr Sodium Chloride (Normal Saline) 1,000 mls @ 125 mls/hr IV ASDIRECTED [facility] Last Admin: 03/15/20 04:17 Dose: 125 mls/hr Sodium Chloride (Normal Saline) 100 mls @ 3 mls/sec IV ASDIRECTED [facility] Last Admin: 03/14/20 18:16 Dose: 3 mls/sec Lactated Ringer's (Ringers, Lactated) 500 mls @ 999 mls/hr IV .BOLUS ONE Stop: 03/14/20 20:30 Last Admin: 03/14/20 20:08 Dose: 999 mls/hr Iopamidol (Isovue-370 (76%)) 100 ml IV . DIRECTED [facility] Last Admin: 03/14/20 18:16 Dose: 100 ml Methylprednisolone Sodium Succinate (Solu-Medrol) 125 mg IVPUSH ONETIME ONE Stop: 03/14/20 14:14 Last Admin: 03/14/20 14:41 Dose: 125 mg Methylprednisolone Sodium Succinate (Solu-Medrol) 40 mg IVPUSH Q6H [facility] Methylprednisolone Sodium Succinate (Solu-Medrol) 40 mg IVPUSH ONETIME ONE Stop: 03/14/20 19:00 Last Admin: 03/14/20 19:15 Dose: 40 mg - Exam Quality Assessment: Supplemental Oxygen, DVT Prophylaxis General: Alert, Oriented, Cooperative, Moderate Distress Lungs: Decreased Breath Sounds, Crackles, Wheezing. No: Rales, Rhonchi, Rub Cardiovascular: Regular Rate, No Murmurs, Irregular Rhythm GI/Abdominal Exam: Soft, No Organomegaly, Tender. No: Distended, Guarding, Rigid, Rebound Extremities: Non-Tender, No Pedal Edema Skin: Warm, Dry, Intact Sepsis Event Note - Evaluation Sepsis Screening Result: No Definite Risk - Focused Exam Vital Signs: Vital Signs Temp Pulse Pulse Resp BP BP Pulse Ox 03/16/20 08:40 97 119/75 03/16/20 06:18 102 H 17 123/79 91 L 03/16/20 06:02 102 H 17 124/70 90 L 03/16/20 06:00 142 H 16 134/73 90 L 03/16/20 04:00 97.5 F 125 H 24 H 125/61 92 L 03/16/20 02:00 114 H 25 H 121/73 91 L Date Exam was Performed: 03/16/20 Time Exam was Performed: 14:32 - Problem List Review Problem List Initiated/Reviewed/Updated: Yes - My Orders Last 24 Hours: My Active Orders 03/15/20 17:00 cefTRIAXone [Rocephin] 1 gm Sodium Chloride 0.9% [Normal Saline] 50 ml IV Q24H 03/16/20 05:45 Diltiazem [Cardizem] 100 mg Sodium Chloride 0.9% [Normal Saline] 100 ml IV TITRATE 03/16/20 08:01 Chest 1V Frontal [CR] Urgent 03/16/20 09:13 BIPAP Adult [RT BiPAP/CPAP] [RC] ASDIRECTED 03/16/20 12:18 BLOOD GAS ARTERIAL [BG] Stat 03/17/20 05:00 BASIC METABOLIC PANEL,BMP [CHEM] Timed BLOOD GAS ARTERIAL [BG] Timed CBC WITH AUTO DIFF [HEME] Timed MAGNESIUM [CHEM] Timed 03/17/20 08:00 Echo Comp wo Cont [US] Urgent - Plan Plan:: ASSESSMENT AND PLAN ACUTE ON CHRONIC RESPIRATORY FAILURE WITH HYPOXIA AND HYPERCAPNIA-known history of oxygen dependent COPD progressive weakness and shortness of breath over the past year, significantly worse in the past few weeks. No recent fever chills or sweats. White blood cell count is within normal range and she has been afebrile in the emergency department. The scan of the chest showed no evidence of pulmonary embolism or significant infiltrate. Scan did show increase in size of her thoracic aortic aneurysm compared to previous scan, she will require outpatient follow-up with her vascular surgeon. She was given a trial of noninvasive positive pressure ventilation today which she had difficulty tolerating and requested that it be removed. Chest x-ray obtained today shows evidence of bilateral pulmonary infiltrates not noted on previous chest x-ray or CT scan. -Blood cultures pending -Lasix 20 mg IV today -Supplemental oxygen as needed -Nebulizer therapy -Solu-Medrol 40 mg IV every 6 hours -IV doxycycline and ceftriaxone pending culture results -Echocardiogram when available on Tuesday BILATERAL PNEUMONIA -Management as above COPD EXACERBATION -Management as above ABDOMINAL PAIN-present over the past few months, progressively worse. She is able to eat only a small amount at any time. Discussed further evaluation today including CT scan of the abdomen and pelvis. She is not feeling as well today and would like to defer CT scan until tomorrow. At the present time she is to compromise from a respiratory standpoint to consider EGD. -CT scan of abdomen and pelvis -EGD HISTORY OF THORACIC AORTIC ANEURYSM-status post surgical repair with stenting. CT scan shows enlargement compared to previous study. -Outpatient follow-up with her vascular surgeon MAINTENANCE ISSUES -DVT prophylaxis; Lovenox 40 mg subcu daily -GI prophylaxis; continue outpatient PPI therapy -Burnett catheter; not indicated -Nutrition; 2 g sodium diet -Nicotine dependence; not required CODE STATUS-FULL CODE ADMISSION STATUS-patient will be admitted to inpatient status, expect at least a 2 night hospital stay for evaluation and management of problems as outlined above. At the time of this admission I do not reasonably expected evaluation and management of this problem will require more than a 96 hour hospital stay. DISPOSITION-anticipate discharge to home after the hospital stay. PRIMARY CARE PROVIDER-Alie Garcia
--- NOTE | 2020-03-16 13:04 | CRLCR ---
INDICATION: Increased congestion on auscultation TECHNIQUE: Chest 1 view. COMPARISON: Chest radiograph 03/14/2020, chest CT 03/14/2020 FINDINGS: Cardiovascular and mediastinum: Stable cardiomegaly. Median sternotomy wires. Thoracic aorta stent graft in place, with prominent soft tissue density surrounding the graft at the arch, similar to the prior studies, likely related to known endoleak. Lungs and pleural space: Patchy opacities at the lung bases, right greater than left. Possible trace bilateral pleural effusions. No pneumothorax. IMPRESSION: Patchy opacities at the lung bases, right greater than left, suspicious for pneumonia. Dictated by Perla Pena MD @ 03/16/2020 12:52:15 PM Dictated by: Perla Pena MD @ 03/16/2020 13:01:49 (Electronically Signed)
[2020-03-16] MEDS: cefTRIAXone 1 GM in Sodium Chloride 0.9% 50 ML IV SCH (16:03)
[2020-03-16] MEDS: Enoxaparin 40 MG/0.4 ML Syringe SUBCUT SCH (17:54)
[2020-03-16] MEDS ORDERED: Levofloxacin/Dextrose 5%-Water 750 MG in Premix Bag 1 BAG IV SCH (19:00)
[2020-03-17] MEDS: Diltiazem 100 MG in Sodium Chloride 0.9% 100 ML IV SCH ×2 (01:48→11:12)
[2020-03-17] MEDS: Albuterol 0.083% 2.5 MG/3 ML Neb Soln NEB PRN (03:00)
[2020-03-17] MEDS: LORazepam 0.5 MG Tab PO PRN (03:25)
[2020-03-17] MEDS: methylPREDNISolone Sodium Succinate 40 MG/1 ML SDV IVPUSH SCH ×3 (06:14→18:05)
[2020-03-17] MEDS: Glycopyrrolate 15.6 MCG Cap.W.Dev Kit of 6 IH SCH ×2 (07:28→21:23)
[2020-03-17] MEDS ORDERED: Sodium Chloride 0.9% 1,000 ML IV ONE (07:45)
[2020-03-17] MEDS: Levothyroxine 100 MCG Tab PO SCH (07:50)
[2020-03-17] MEDS: Pantoprazole 40 MG Tab.CR PO SCH (07:51)
[2020-03-17] MEDS: Aspirin 81 MG Tab.Chew PO SCH (08:38)
[2020-03-17] MEDS: Citalopram 10 MG Tab PO SCH (08:38)
[2020-03-17] MEDS: atorvaSTATin 20 MG Tab PO SCH (08:38)
[2020-03-17] MEDS: Hydrochlorothiazide 25 MG Tab PO SCH (08:38)
[2020-03-17] MEDS: Metoprolol Succinate 25 MG Tab.ER PO SCH (08:38)
[2020-03-17] MEDS: Lactobacillus Rhamnosus GG (Probiotic) Cap PO SCH ×2 (08:38→21:22)
[2020-03-17] MEDS ORDERED: Sodium Chloride 0.9% 1,000 ML IV SCH (09:45)
--- NOTE | 2020-03-17 10:06 | PCM.PN ---
- General Info Date of Service: 03/17/20 Subjective Update: No acute events overnight. Patient is alert and interactive but somewhat slow with her responses. Oxygenation has been stable on 1 to 1-1/2 L of supplemental oxygen. She has not had any fevers. She feels a little less short of breath today than yesterday. She does not have much of a cough. No lower extremity edema. She does not have significant abdominal pain at this time and no nausea is reported. Echocardiogram this morning showed low normal ejection fraction with diastolic dysfunction. Functional Status: Reports: Pain Controlled, Tolerating Diet - Review of Systems General: Reports: Weakness Pulmonary: Reports: Shortness of Breath - Patient Data Vitals - Most Recent: Last Vital Signs Temp 36.6 C 03/17/20 08:00 Pulse 100 03/17/20 08:38 Resp 20 03/17/20 08:00 BP 95/62 03/17/20 08:38 Pulse Ox 89 L 03/17/20 08:00 Weight - Most Recent: 85.275 kg I&O - Last 24 Hours: Intake & Output 03/16/20 03/17/20 03/17/20 22:59 06:59 14:59 Intake Total 407 107 Balance 407 107 Lab Results Last 24 Hours: Laboratory Results - last 24 hr 03/14/20 03/16/20 03/17/20 Range/Units 21:54 12:32 05:00 WBC (4.5-11.0) K/uL RBC (3.30-5.50) M/uL Hgb (12.0-15.0) g/dL Hct (36.0-48.0) % MCV (80-98) fL MCH (27-31) pg MCHC (32-36) % Plt Count (150-400) K/uL Neut % (Auto) (36-66) % Lymph % (Auto) (24-44) % [place] % (Auto) (2-6) % Eos % (Auto) (2-4) % Baso % (Auto) (0-1) % Puncture Site Rt radial ABG pH 7.308 L (7.350-7.450) ABG pCO2 87.4 H* (35.0-42.0) mmHg ABG pO2 43.8 L* (75.0-100.0) mmHg ABG HCO3 42.5 H (22.0-26.0) mmol/L ABG Total CO2 39.5 H (21.0-25.0) mmol/L ABG O2 Saturation 72.1 L (95.0-98.0) % ABG O2 Content 11.9 L (15.0-23.0) %vol ABG Base Excess 13.0 mm/L ABG Hemoglobin 12.0 (12.0-16.0) g/dL ABG Oxyhemoglobin 70.3 % ABG Carboxyhemoglobin 1.7 H (0.0-1.6) % ABG Methemoglobin 0.8 % Justus Test Performed O2 Delivery Device Nasal cannula Oxygen Flow Rate 0.5 L Sodium 144 (140-148) mmol/L Potassium 4.4 (3.6-5.2) mmol/L Chloride 102 (100-108) mmol/L Carbon Dioxide 40 H (21-32) mmol/L Anion Gap 6.4 (5.0-14.0) mmol/L BUN 38 H (7-18) mg/dL Creatinine 1.2 H (0.6-1.0) mg/dL Est Cr Clr Drug Dosing 39.25 mL/min Estimated GFR (MDRD) 44 L (>60) Glucose 135 H (74-106) mg/dL Calcium 9.1 (8.5-10.1) mg/dL Magnesium 1.9 (1.8-2.4) mg/dL COVID-19 PCR Negative (NEGATIVE) 03/17/20 03/17/20 Range/Units 05:10 05:20 WBC 6.4 (4.5-11.0) K/uL RBC 3.23 L (3.30-5.50) M/uL Hgb 10.9 L (12.0-15.0) g/dL Hct 36.3 (36.0-48.0) % MCV 112 H (80-98) fL MCH 34 H (27-31) pg MCHC 30 L (32-36) % Plt Count 121 L (150-400) K/uL Neut % (Auto) 90 H (36-66) % Lymph % (Auto) 5 L (24-44) % [place] % (Auto) 5 (2-6) % Eos % (Auto) 0 L (2-4) % Baso % (Auto) 0 (0-1) % Puncture Site R radial ABG pH 7.306 L (7.350-7.450) ABG pCO2 86.4 H* (35.0-42.0) mmHg ABG pO2 52.0 L (75.0-100.0) mmHg ABG HCO3 41.8 H (22.0-26.0) mmol/L ABG Total CO2 39.3 H (21.0-25.0) mmol/L ABG O2 Saturation 81.7 L (95.0-98.0) % ABG O2 Content 12.2 L (15.0-23.0) %vol ABG Base Excess 12.8 mm/L ABG Hemoglobin 11.0 L (12.0-16.0) g/dL ABG Oxyhemoglobin 79.2 % ABG Carboxyhemoglobin 2.0 H (0.0-1.6) % ABG Methemoglobin 1.0 % Justus Test Ok O2 Delivery Device Nasal cannula Oxygen Flow Rate 1.0 L Sodium (140-148) mmol/L Potassium (3.6-5.2) mmol/L Chloride (100-108) mmol/L Carbon Dioxide (21-32) mmol/L Anion Gap (5.0-14.0) mmol/L BUN (7-18) mg/dL Creatinine (0.6-1.0) mg/dL Est Cr Clr Drug Dosing mL/min Estimated GFR (MDRD) (>60) Glucose (74-106) mg/dL Calcium (8.5-10.1) mg/dL Magnesium (1.8-2.4) mg/dL COVID-19 PCR (NEGATIVE) Vikas Results Last 24 Hours: Microbiology 03/14/20 18:05 Aerobic Blood Culture - Preliminary Blood - Venous - Lab Draw NO GROWTH AFTER 2 DAYS Anaerobic Blood Culture - Preliminary NO GROWTH AFTER 2 DAYS 03/14/20 18:05 Aerobic Blood Culture - Preliminary Blood - Venous NO GROWTH AFTER 2 DAYS Anaerobic Blood Culture - Preliminary NO GROWTH AFTER 2 DAYS Med Orders - Current: Current Medications Acetaminophen (Tylenol) 650 mg PO Q4H PRN PRN Reason: Pain (Mild 1-3)/fever Albuterol (Proventil Neb Soln) 2.5 mg NEB Q4H PRN PRN Reason: Shortness Of Breath/wheezing Last Admin: 03/17/20 03:00 Dose: 2.5 mg Aspirin (Aspirin) 81 mg PO DAILY [facility] Last Admin: 03/17/20 08:38 Dose: 81 mg Atorvastatin Calcium (Lipitor) 40 mg PO Q48H [facility] Last Admin: 03/17/20 08:38 Dose: 40 mg Citalopram Hydrobromide (Celexa) 10 mg PO DAILY [facility] Last Admin: 03/17/20 08:38 Dose: 10 mg Enoxaparin Sodium (Lovenox) 40 mg SUBCUT Q24H [facility] Last Admin: 03/16/20 17:54 Dose: 40 mg Glycopyrrolate (Seebri Neohaler) 15.6 mcg IH BIDRT [facility] Last Admin: 03/17/20 07:28 Dose: 1 cap Ceftriaxone Sodium 1 gm/ (Sodium Chloride) 50 mls @ 100 mls/hr IV Q24H [facility] Last Admin: 03/16/20 16:03 Dose: 100 mls/hr Diltiazem HCl 100 mg/ Sodium (Chloride) 100 mls @ 5 mls/hr IV TITRATE [facility]; Protocol Last Admin: 03/17/20 01:48 Dose: 10 mg/hr, 10 mls/hr Levofloxacin/Dextrose 750 mg/ (Premix) 150 mls @ 100 mls/hr IV Q24H [facility] Last Admin: 03/16/20 19:24 Dose: 100 mls/hr Lactobacillus Rhamnosus (Culturelle) 1 cap PO BID [facility] Last Admin: 03/17/20 08:38 Dose: 1 cap Levothyroxine Sodium (Synthroid) 100 mcg PO ACBREAKFAST [facility] Last Admin: 03/17/20 07:50 Dose: 100 mcg Lorazepam (Ativan) 0.5 mg PO Q4H PRN PRN Reason: Anxiety Last Admin: 03/17/20 03:25 Dose: 0.5 mg Methylprednisolone Sodium Succinate (Solu-Medrol) 40 mg IVPUSH Q6H [facility] Last Admin: 03/17/20 06:14 Dose: 40 mg Metoprolol Succinate (Toprol Xl) 25 mg PO DAILY [facility] Last Admin: 03/17/20 08:38 Dose: 25 mg Ondansetron HCl (Zofran) 4 mg IV Q4H PRN PRN Reason: Nausea/Vomiting Pantoprazole Sodium (Protonix) 40 mg PO ACBREAKFAST [facility] Last Admin: 03/17/20 07:51 Dose: 40 mg Polyethylene Glycol (Miralax) 17 gm PO DAILY PRN PRN Reason: Constipation Sodium Chloride (Saline Flush) 10 ml FLUSH ASDIRECTED PRN PRN Reason: Keep Vein Open Discontinued Medications Albuterol/Ipratropium (Duoneb 3.0-0.5 Mg/3 Ml) 3 ml NEB ONETIME ONE Stop: 03/14/20 14:13 Last Admin: 03/14/20 14:30 Dose: 3 ml Albuterol/Ipratropium (Duoneb 3.0-0.5 Mg/3 Ml) 3 ml NEB ONETIME ONE Stop: 03/14/20 15:28 Last Admin: 03/14/20 15:38 Dose: 3 ml Albuterol/Ipratropium (Duoneb 3.0-0.5 Mg/3 Ml) 3 ml INH ONETIME ONE Stop: 03/14/20 17:01 Last Admin: 03/14/20 20:15 Dose: 3 ml Albuterol/Ipratropium (Duoneb 3.0-0.5 Mg/3 Ml) Confirm Administered Dose 3 ml .ROUTE .STK-MED ONE Stop: 03/14/20 20:13 Last Admin: 03/14/20 20:21 Dose: Not Given Digoxin (Lanoxin) Confirm Administered Dose 500 mcg .ROUTE .STK-MED ONE Stop: 03/14/20 20:06 Last Admin: 03/14/20 20:21 Dose: Not Given Digoxin (Lanoxin) 250 mcg IVPUSH ONETIME ONE Stop: 03/14/20 19:56 Last Admin: 03/14/20 20:16 Dose: 250 mcg Diltiazem HCl (Diltiazem) 10 mg IVPUSH ONETIME ONE Stop: 03/16/20 05:41 Last Admin: 03/16/20 05:55 Dose: 10 mg Furosemide (Lasix) 20 mg IVPUSH NOW ONE Stop: 03/16/20 09:15 Last Admin: 03/16/20 09:33 Dose: 20 mg Hydrochlorothiazide (Hydrochlorothiazide) 25 mg PO DAILY [facility] Last Admin: 03/17/20 08:38 Dose: 25 mg Ceftriaxone Sodium 2 gm/ (Sodium Chloride) 50 mls @ 100 mls/hr IV ONETIME ONE Stop: 03/14/20 16:07 Last Admin: 03/14/20 18:00 Dose: 100 mls/hr Doxycycline Hyclate 100 mg/ (Sodium Chloride) 100 mls @ 100 mls/hr IV Q12H [facility] Last Admin: 03/16/20 17:55 Dose: 100 mls/hr Sodium Chloride (Normal Saline) 1,000 mls @ 125 mls/hr IV ASDIRECTED [facility] Last Admin: 03/15/20 04:17 Dose: 125 mls/hr Sodium Chloride (Normal Saline) 100 mls @ 3 mls/sec IV ASDIRECTED [facility] Last Admin: 03/14/20 18:16 Dose: 3 mls/sec Lactated Ringer's (Ringers, Lactated) 500 mls @ 999 mls/hr IV .BOLUS ONE Stop: 03/14/20 20:30 Last Admin: 03/14/20 20:08 Dose: 999 mls/hr Sodium Chloride (Normal Saline) 1,000 mls @ 500 mls/hr IV ONETIME ONE Stop: 03/17/20 09:44 Last Admin: 03/17/20 07:48 Dose: 500 mls/hr Sodium Chloride (Normal Saline) 1,000 mls @ 100 mls/hr IV ASDIRECTED [facility] Last Admin: 03/17/20 09:44 Dose: 100 mls/hr Iopamidol (Isovue-370 (76%)) 100 ml IV . DIRECTED [facility] Last Admin: 03/14/20 18:16 Dose: 100 ml Methylprednisolone Sodium Succinate (Solu-Medrol) 125 mg IVPUSH ONETIME ONE Stop: 03/14/20 14:14 Last Admin: 03/14/20 14:41 Dose: 125 mg Methylprednisolone Sodium Succinate (Solu-Medrol) 40 mg IVPUSH Q6H [facility] Methylprednisolone Sodium Succinate (Solu-Medrol) 40 mg IVPUSH ONETIME ONE Stop: 03/14/20 19:00 Last Admin: 03/14/20 19:15 Dose: 40 mg - Exam Quality Assessment: Supplemental Oxygen General: Alert, Oriented, Cooperative, No Acute Distress, Lethargic Lungs: Crackles (few both bases ). No: Normal Respiratory Effort (increased work of breathing ), Wheezing Cardiovascular: Regular Rate, Irregular Rhythm, Murmurs, Gallops GI/Abdominal Exam: Soft, No Distention Extremities: No Pedal Edema. No: Increased Warmth Skin: Warm, Dry Psy/Mental Status: Alert, Normal Affect Sepsis Event Note - Evaluation Sepsis Screening Result: No Definite Risk - Focused Exam Vital Signs: Vital Signs Temp Pulse Pulse Resp BP BP Pulse Ox 03/17/20 08:38 100 95/62 03/17/20 08:00 36.6 C 20 95/62 89 L 03/17/20 06:00 100 22 H 113/61 89 L 03/17/20 05:00 86 18 97/49 L 89 L 03/17/20 04:00 83 19 98/42 L 89 L 03/17/20 03:00 88 15 109/51 L 86 L 03/17/20 02:00 36.2 C 86 25 H 114/51 L 94 L 03/17/20 01:00 79 24 H 105/59 L 89 L 03/17/20 00:00 87 26 H 97/62 88 L 03/16/20 23:00 87 26 H 111/66 93 L Date Exam was Performed: 03/17/20 Time Exam was Performed: 13:36 - Problem List Review Problem List Initiated/Reviewed/Updated: Yes - My Orders Last 24 Hours: My Active Orders 03/17/20 10:02 Furosemide [Lasix] 20 mg IVPUSH ONETIME ONE Convert IV to Saline Lock [OM.PC] Routine 03/17/20 10:05 Urinary Catheter Assessment [RC] ASDIRECTED 03/17/20 10:15 Insert Burnett Catheter [Insert Urinary Catheter] [OM.PC] Q24H 03/18/20 05:00 BASIC METABOLIC PANEL,BMP [CHEM] Timed BLOOD GAS ARTERIAL [BG] Timed CBC W/O DIFF,HEMOGRAM [HEME] Timed (1) - Plan Plan:: ASSESSMENT AND PLAN ACUTE ON CHRONIC RESPIRATORY FAILURE WITH HYPOXIA AND HYPERCAPNIA-known history of oxygen dependent COPD. Echocardiogram showed significant diastolic dysfunction and a low normal ejection fraction. IVC was dilated and did not collapse with respiration. -Furosemide X2 doses today -Supplemental oxygen as needed -Nebulizer therapy -Solu-Medrol 40 mg IV every 6 hours -Continue levofloxacin and ceftriaxone BILATERAL PNEUMONIA-complicated by acute on chronic respiratory failure as above. No fevers. -Management as above COPD EXACERBATION -Management as above ABDOMINAL PAIN-present over the past few months, progressively worse. No significant pain today. Will defer work-up until respiratory status improves. -Consider CT scan of abdomen and pelvis -Consider EGD HISTORY OF THORACIC AORTIC ANEURYSM-status post surgical repair with stenting. CT scan shows enlargement compared to previous study. -Outpatient follow-up with her vascular surgeon MAINTENANCE ISSUES -DVT prophylaxis; Lovenox 40 mg subcu daily -GI prophylaxis; continue outpatient PPI therapy -Burnett catheter; not indicated -Nutrition; 2 g sodium diet DISPOSITION-anticipate discharge to home after the hospital stay. Oskar Salazar MD
[2020-03-17] MEDS ORDERED: Furosemide 20 MG/2 ML VIAL IVPUSH ONE ×2 (10:15→18:00)
[2020-03-17] MEDS: Diltiazem IR 30 MG Tab PO SCH ×2 (15:59→21:23)
[2020-03-17] MEDS: cefTRIAXone 1 GM in Sodium Chloride 0.9% 50 ML IV SCH (16:49)
[2020-03-17] MEDS: Enoxaparin 40 MG/0.4 ML Syringe SUBCUT SCH (17:41)
[2020-03-18] MEDS: methylPREDNISolone Sodium Succinate 40 MG/1 ML SDV IVPUSH SCH ×4 (00:16→20:47)
[2020-03-18] MEDS: Albuterol 0.083% 2.5 MG/3 ML Neb Soln NEB PRN (00:38)
[2020-03-18] MEDS: Diltiazem IR 30 MG Tab PO SCH (05:19)
[2020-03-18] MEDS ORDERED: Heparin Sodium 5,000 Units/ML Vial ONE (05:44)
[2020-03-18] MEDS ORDERED: propofoL 100 ML ONE (06:00)
[2020-03-18] MEDS ORDERED: Sodium Chloride 0.9% 500 ML IV SCH (06:30)
--- NOTE | 2020-03-18 06:37 | PCM.PN ---
- General Info Date of Service: 03/18/20 Subjective Update: Overnight the patient had difficulty with decreasing level of consciousness and worsening respiratory status. She was placed on noninvasive ventilation and this did help her oxygenation. Blood gases were obtained in the middle the night and showed a rising PO2. Despite being on noninvasive ventilation overnight her PCO2 stephy further this morning prompting intubation and mechanical ventilation. She is now intubated and lightly sedated and not able to provide any history this morning. She has not had any fevers. She did have a good diuresis yesterday but unfortunately her respiratory status and kidney function have declined. Functional Status: Reports: Other (intubated and sedated ) - Patient Data Vitals - Most Recent: Last Vital Signs Temp 36.1 C 03/18/20 04:00 Pulse 100 03/17/20 08:38 Resp 12 03/18/20 06:00 BP 122/63 03/18/20 06:00 Pulse Ox 90 L 03/18/20 06:00 Weight - Most Recent: 85.275 kg I&O - Last 24 Hours: Intake & Output 03/17/20 03/17/20 03/18/20 14:59 22:59 06:59 Intake Total 1580 Output Total 600 550 250 Balance -600 1030 -250 Lab Results Last 24 Hours: Laboratory Results - last 24 hr 03/14/20 03/18/20 03/18/20 Range/Units 21:54 00:54 00:55 WBC (4.5-11.0) K/uL RBC (3.30-5.50) M/uL Hgb (12.0-15.0) g/dL Hct (36.0-48.0) % MCV (80-98) fL MCH (27-31) pg MCHC (32-36) % Plt Count (150-400) K/uL Sample Site R brachial Puncture Site POC ABG pH 7.24 L (7.35-7.45) ABG pH (7.350-7.450) POC ABG pCO2 105.1 H* (35-45) mmHG ABG pCO2 (35.0-42.0) mmHg POC ABG pO2 75 L (80-105) mmHg ABG pO2 (75.0-100.0) mmHg POC ABG HCO3 44.5 H (22.0-26.0) mmol/L ABG HCO3 (22.0-26.0) mmol/L POC ABG Total CO2 48 H (23-27) mmol/L ABG Total CO2 (21.0-25.0) mmol/L POC ABG O2 Sat 90 L (95-98) % ABG O2 Saturation (95.0-98.0) % ABG O2 Content (15.0-23.0) %vol POC ABG Base Excess 17 H (-2-3) mmol/L ABG Base Excess mm/L ABG Hemoglobin (12.0-16.0) g/dL ABG Oxyhemoglobin % ABG Carboxyhemoglobin (0.0-1.6) % ABG Methemoglobin % O2 Delivery Device Bipap Oxygen Flow Rate L POC O2 Flow Rate Sodium (140-148) mmol/L Potassium (3.6-5.2) mmol/L Chloride (100-108) mmol/L Carbon Dioxide (21-32) mmol/L Anion Gap (5.0-14.0) mmol/L BUN (7-18) mg/dL Creatinine (0.6-1.0) mg/dL Est Cr Clr Drug Dosing mL/min Estimated GFR (MDRD) (>60) Glucose (74-106) mg/dL Calcium (8.5-10.1) mg/dL Troponin I < 0.017 (0.000-0.056) ng/mL COVID-19 PCR Negative (NEGATIVE) 03/18/20 03/18/20 03/18/20 Range/Units 05:30 05:30 05:30 WBC 9.2 (4.5-11.0) K/uL RBC 3.71 (3.30-5.50) M/uL Hgb 12.8 (12.0-15.0) g/dL Hct 42.1 (36.0-48.0) % MCV 114 H (80-98) fL MCH 35 H (27-31) pg MCHC 30 L (32-36) % Plt Count 162 (150-400) K/uL Sample Site Puncture Site R brachial POC ABG pH (7.35-7.45) ABG pH 6.924 L* (7.350-7.450) POC ABG pCO2 (35-45) mmHG ABG pCO2 222.0 H* (35.0-42.0) mmHg POC ABG pO2 (80-105) mmHg ABG pO2 86.7 (75.0-100.0) mmHg POC ABG HCO3 (22.0-26.0) mmol/L ABG HCO3 43.7 H (22.0-26.0) mmol/L POC ABG Total CO2 (23-27) mmol/L ABG Total CO2 45.5 H (21.0-25.0) mmol/L POC ABG O2 Sat (95-98) % ABG O2 Saturation 88.9 L (95.0-98.0) % ABG O2 Content 16.0 (15.0-23.0) %vol POC ABG Base Excess (-2-3) mmol/L ABG Base Excess 2.4 mm/L ABG Hemoglobin 13.0 (12.0-16.0) g/dL ABG Oxyhemoglobin 87.1 % ABG Carboxyhemoglobin 1.1 (0.0-1.6) % ABG Methemoglobin 0.9 % O2 Delivery Device Nasal cannula Oxygen Flow Rate L POC O2 Flow Rate Sodium 143 (140-148) mmol/L Potassium 4.8 (3.6-5.2) mmol/L Chloride 101 (100-108) mmol/L Carbon Dioxide 42 H (21-32) mmol/L Anion Gap 4.8 L (5.0-14.0) mmol/L BUN 45 H (7-18) mg/dL Creatinine 1.7 H (0.6-1.0) mg/dL Est Cr Clr Drug Dosing 27.66 mL/min Estimated GFR (MDRD) 30 L (>60) Glucose 207 H (74-106) mg/dL Calcium 8.5 (8.5-10.1) mg/dL Troponin I (0.000-0.056) ng/mL COVID-19 PCR (NEGATIVE) Vikas Results Last 24 Hours: Microbiology 03/14/20 18:05 Aerobic Blood Culture - Preliminary Blood - Venous NO GROWTH AFTER 3 DAYS Anaerobic Blood Culture - Preliminary NO GROWTH AFTER 3 DAYS 03/14/20 18:05 Aerobic Blood Culture - Preliminary Blood - Venous - Lab Draw NO GROWTH AFTER 3 DAYS Anaerobic Blood Culture - Preliminary NO GROWTH AFTER 3 DAYS Med Orders - Current: Current Medications Acetaminophen (Tylenol) 650 mg PO Q4H PRN PRN Reason: Pain (Mild 1-3)/fever Last Admin: 03/18/20 00:18 Dose: 650 mg Albuterol (Proventil Neb Soln) 2.5 mg NEB Q4H PRN PRN Reason: Shortness Of Breath/wheezing Last Admin: 03/18/20 00:38 Dose: 2.5 mg Aspirin (Aspirin) 81 mg PO DAILY [facility] Last Admin: 03/17/20 08:38 Dose: 81 mg Atorvastatin Calcium (Lipitor) 40 mg PO Q48H NIKA Last Admin: 03/17/20 08:38 Dose: 40 mg Citalopram Hydrobromide (Celexa) 10 mg PO DAILY [facility] Last Admin: 03/17/20 08:38 Dose: 10 mg Enoxaparin Sodium (Lovenox) 40 mg SUBCUT Q24H [facility] Last Admin: 03/17/20 17:41 Dose: 40 mg Glycopyrrolate (Seebri Neohaler) 15.6 mcg IH BIDRT [facility] Last Admin: 03/17/20 21:23 Dose: 15.6 cap Levofloxacin/Dextrose 750 mg/ (Premix) 150 mls @ 100 mls/hr IV Q48H [facility] Diltiazem HCl 100 mg/ Sodium (Chloride) 100 mls @ 5 mls/hr IV TITRATE NIKA; Protocol Propofol (Diprivan 100 Ml) 100 mls @ 2.558 mls/hr IV TITRATE NIKA; Protocol Sodium Chloride (Normal Saline) 500 mls @ 999 mls/hr IV ASDIRECTED [facility] Stop: 03/18/20 07:01 Ceftazidime 1 gm/ Sodium (Chloride) 50 mls @ 100 mls/hr IV Q8HR [facility] Vancomycin HCl 1.5 gm/ Sodium (Chloride) 250 mls @ 150 mls/hr IV ONETIME ONE Stop: 03/18/20 08:39 Vancomycin HCl 1.25 gm/ Sodium (Chloride) 250 mls @ 150 mls/hr IV Q24H [facility] Lactobacillus Rhamnosus (Culturelle) 1 cap PO BID [facility] Last Admin: 03/17/20 21:22 Dose: 1 cap Levothyroxine Sodium (Synthroid) 100 mcg PO ACBREAKFAST [facility] Last Admin: 03/17/20 07:50 Dose: 100 mcg Lorazepam (Ativan) 0.5 mg PO Q4H PRN PRN Reason: Anxiety Last Admin: 03/17/20 03:25 Dose: 0.5 mg Methylprednisolone Sodium Succinate (Solu-Medrol) 40 mg IVPUSH Q6H [facility] Last Admin: 03/18/20 00:16 Dose: 40 mg Metoprolol Succinate (Toprol Xl) 25 mg PO DAILY [facility] Last Admin: 03/17/20 08:38 Dose: 25 mg Ondansetron HCl (Zofran) 4 mg IV Q4H PRN PRN Reason: Nausea/Vomiting Last Admin: 03/18/20 00:18 Dose: 4 mg Pantoprazole Sodium (Protonix Iv) 40 mg IVPUSH DAILY [facility] Polyethylene Glycol (Miralax) 17 gm PO DAILY PRN PRN Reason: Constipation Sodium Chloride (Saline Flush) 10 ml FLUSH ASDIRECTED PRN PRN Reason: Keep Vein Open Discontinued Medications Albuterol/Ipratropium (Duoneb 3.0-0.5 Mg/3 Ml) 3 ml NEB ONETIME ONE Stop: 03/14/20 14:13 Last Admin: 03/14/20 14:30 Dose: 3 ml Albuterol/Ipratropium (Duoneb 3.0-0.5 Mg/3 Ml) 3 ml NEB ONETIME ONE Stop: 03/14/20 15:28 Last Admin: 03/14/20 15:38 Dose: 3 ml Albuterol/Ipratropium (Duoneb 3.0-0.5 Mg/3 Ml) 3 ml INH ONETIME ONE Stop: 03/14/20 17:01 Last Admin: 03/14/20 20:15 Dose: 3 ml Albuterol/Ipratropium (Duoneb 3.0-0.5 Mg/3 Ml) Confirm Administered Dose 3 ml .ROUTE .STK-MED ONE Stop: 03/14/20 20:13 Last Admin: 03/14/20 20:21 Dose: Not Given Digoxin (Lanoxin) Confirm Administered Dose 500 mcg .ROUTE .STK-MED ONE Stop: 03/14/20 20:06 Last Admin: 03/14/20 20:21 Dose: Not Given Digoxin (Lanoxin) 250 mcg IVPUSH ONETIME ONE Stop: 03/14/20 19:56 Last Admin: 03/14/20 20:16 Dose: 250 mcg Diltiazem HCl (Diltiazem) 10 mg IVPUSH ONETIME ONE Stop: 03/16/20 05:41 Last Admin: 03/16/20 05:55 Dose: 10 mg Diltiazem HCl (Cardizem) 60 mg PO Q6HR [facility] Last Admin: 03/18/20 05:19 Dose: Not Given Furosemide (Lasix) 20 mg IVPUSH NOW ONE Stop: 03/16/20 09:15 Last Admin: 03/16/20 09:33 Dose: 20 mg Furosemide (Lasix) 20 mg IVPUSH ONETIME ONE Stop: 03/17/20 10:16 Last Admin: 03/17/20 11:11 Dose: 20 mg Furosemide (Lasix) 20 mg IVPUSH ONETIME ONE Stop: 03/17/20 18:01 Last Admin: 03/17/20 17:41 Dose: 20 mg Heparin Sodium (Porcine) (Heparin Sodium) Confirm Administered Dose 5,000 units .ROUTE .STK-MED ONE Stop: 03/18/20 05:45 Hydrochlorothiazide (Hydrochlorothiazide) 25 mg PO DAILY [facility] Last Admin: 03/17/20 08:38 Dose: 25 mg Ceftriaxone Sodium 2 gm/ (Sodium Chloride) 50 mls @ 100 mls/hr IV ONETIME ONE Stop: 03/14/20 16:07 Last Admin: 03/14/20 18:00 Dose: 100 mls/hr Ceftriaxone Sodium 1 gm/ (Sodium Chloride) 50 mls @ 100 mls/hr IV Q24H [facility] Last Admin: 03/17/20 16:49 Dose: 100 mls/hr Doxycycline Hyclate 100 mg/ (Sodium Chloride) 100 mls @ 100 mls/hr IV Q12H [facility] Last Admin: 03/16/20 17:55 Dose: 100 mls/hr Sodium Chloride (Normal Saline) 1,000 mls @ 125 mls/hr IV ASDIRECTED [facility] Last Admin: 03/15/20 04:17 Dose: 125 mls/hr Sodium Chloride (Normal Saline) 100 mls @ 3 mls/sec IV ASDIRECTED [facility] Last Admin: 03/14/20 18:16 Dose: 3 mls/sec Lactated Ringer's (Ringers, Lactated) 500 mls @ 999 mls/hr IV .BOLUS ONE Stop: 03/14/20 20:30 Last Admin: 03/14/20 20:08 Dose: 999 mls/hr Diltiazem HCl 100 mg/ Sodium (Chloride) 100 mls @ 5 mls/hr IV TITRATE NIKA; Protocol Stop: 03/17/20 16:00 Last Admin: 03/17/20 11:12 Dose: 10 mg/hr, 10 mls/hr Levofloxacin/Dextrose 750 mg/ (Premix) 150 mls @ 100 mls/hr IV Q24H [facility] Last Admin: 03/16/20 19:24 Dose: 100 mls/hr Sodium Chloride (Normal Saline) 1,000 mls @ 500 mls/hr IV ONETIME ONE Stop: 03/17/20 09:44 Last Admin: 03/17/20 07:48 Dose: 500 mls/hr Sodium Chloride (Normal Saline) 1,000 mls @ 100 mls/hr IV ASDIRECTED [facility] Last Admin: 03/17/20 09:44 Dose: 100 mls/hr Propofol (Diprivan 100 Ml) Confirm Administered Dose 100 mls @ as directed .ROUTE .STK-MED ONE Stop: 03/18/20 06:01 Iopamidol (Isovue-370 (76%)) 100 ml IV . DIRECTED [facility] Last Admin: 03/14/20 18:16 Dose: 100 ml Methylprednisolone Sodium Succinate (Solu-Medrol) 125 mg IVPUSH ONETIME ONE Stop: 03/14/20 14:14 Last Admin: 03/14/20 14:41 Dose: 125 mg Methylprednisolone Sodium Succinate (Solu-Medrol) 40 mg IVPUSH Q6H [facility] Methylprednisolone Sodium Succinate (Solu-Medrol) 40 mg IVPUSH ONETIME ONE Stop: 03/14/20 19:00 Last Admin: 03/14/20 19:15 Dose: 40 mg Pantoprazole Sodium (Protonix) 40 mg PO ACBREAKFAST [facility] Last Admin: 03/17/20 07:51 Dose: 40 mg - Exam Quality Assessment: Supplemental Oxygen General: No Acute Distress, Sedated. No: Alert Lungs: Normal Respiratory Effort, Crackles (both bases) Cardiovascular: Irregular Rhythm, Tachycardia GI/Abdominal Exam: Soft, No Distention Extremities: No Pedal Edema. No: Increased Warmth Skin: Warm, Dry Psy/Mental Status: No: Alert, Agitated Sepsis Event Note - Evaluation Sepsis Screening Result: Sepsis Risk - Focused Exam Vital Signs: Vital Signs Temp Resp BP Pulse Ox 03/18/20 06:00 12 122/63 90 L 03/18/20 04:00 36.1 C 15 114/68 93 L 03/18/20 02:00 18 130/59 L 94 L 03/18/20 00:00 22 H 107/56 L 89 L 03/17/20 22:00 36.2 C 23 H 108/51 L 89 L 03/17/20 20:00 22 H 101/58 L 91 L Date Exam was Performed: 03/18/20 Time Exam was Performed: 10:23 - Problem List Review Problem List Initiated/Reviewed/Updated: Yes - My Orders Last 24 Hours: My Active Orders 03/17/20 10:02 Convert IV to Saline Lock [OM.PC] Routine 03/17/20 10:05 Urinary Catheter Assessment [RC] ASDIRECTED 03/17/20 10:15 Insert Burnett Catheter [Insert Urinary Catheter] [OM.PC] Q24H 03/18/20 06:12 RASS Sedation Scale [RC] ASDIRECTED Desired Level of Sedation (RASS) [AST] Click to Edit 03/18/20 06:15 CXR [Chest 1V Frontal] [CR] Routine Diltiazem 100 MG in Normal Saline Adv @ 5 MG/HR(100ml) Diltiazem [Cardizem] 100 mg Sodium Chloride 0.9% [Normal Saline] 100 ml IV TITRATE Propofol Drip @ 5 MCG/KG/MIN(100ml) propofoL [Diprivan 100 ML] 100 ml IV TITRATE 03/18/20 06:30 Sodium Chloride 0.9% [Normal Saline] 500 ml IV ASDIRECTED 03/18/20 07:00 Vancomycin 1.25 gm Sodium Chloride 0.9% [Normal Saline] 250 ml IV Q24H Vancomycin 1.5 gm Sodium Chloride 0.9% [Normal Saline] 250 ml IV ONETIME 03/18/20 08:00 BLOOD GAS ARTERIAL [BG] Timed 03/18/20 09:00 Pantoprazole [ProTONIX IV] 40 mg IVPUSH DAILY 03/18/20 14:00 cefTAZidime Pentahydrate [Fortaz] 1 gm Sodium Chloride 0.9% [Normal Saline] 50 ml IV Q8HR 03/19/20 05:00 Chest 1V Frontal [CR] DAILY BLOOD GAS ARTERIAL [BG] Timed CBC W/O DIFF,HEMOGRAM [HEME] Timed (1) COMPREHENSIVE METABOLIC PN,CMP [CHEM] Timed MAGNESIUM [CHEM] Timed 03/20/20 05:00 Chest 1V Frontal [CR] DAILY 03/21/20 05:00 Chest 1V Frontal [CR] DAILY 03/22/20 05:00 Chest 1V Frontal [CR] DAILY - Plan Plan:: ASSESSMENT AND PLAN ACUTE ON CHRONIC RESPIRATORY FAILURE WITH HYPOXIA AND HYPERCAPNIA-known history of oxygen dependent COPD. Echocardiogram showed significant diastolic dysfunction and a low normal ejection fraction as well as moderately severe aortic insufficiency, mitral regurgitation and tricuspid regurgitation. IVC was dilated but she did not respond well to diuresis. I suspect she has combination of COPD and pulmonary vascular disease secondary to congestion from her valvular abnormalities leading to her worsening respiratory status. -Continue mechanical ventilation -Repeat blood gases this afternoon -Nebulizer therapy -Solu-Medrol 40 mg IV every 6 hours -Continue levofloxacin -Additional expanded antibiotic coverage with ceftazidime and vancomycin BILATERAL PNEUMONIA-complicated by acute on chronic respiratory failure as above. No fevers. CRP is in the normal range at this time. -Management as above COPD EXACERBATION -Management as above ABDOMINAL PAIN-present over the past few months, progressively worse. Will defer work-up until respiratory status improves. -Consider CT scan of abdomen and pelvis -Consider EGD HISTORY OF THORACIC AORTIC ANEURYSM-status post surgical repair with stenting. CT scan shows enlargement compared to previous study. -Outpatient follow-up with her vascular surgeon MAINTENANCE ISSUES -DVT prophylaxis; enoxaparin -GI prophylaxis; PPI -Burnett catheter; not indicated -Nutrition; 2 g sodium diet DISPOSITION-anticipate discharge to home versus subacute rehab after the hospital stay. Her son Nathan was updated this morning. Oskar Salazar MD
[2020-03-18] MEDS ORDERED: Heparin Sodium 5,000 UNITS in Sodium Chloride 0.9% 500 ML IV SCH (07:00)
[2020-03-18] MEDS: Glycopyrrolate 15.6 MCG Cap.W.Dev Kit of 6 IH SCH ×2 (07:07→20:47)
[2020-03-18] MEDS: propofoL 100 ML IV SCH ×3 (07:15→22:05)
[2020-03-18] MEDS: Sodium Chloride 0.9% 500 ML IV ONE ×2 (07:19→07:20)
[2020-03-18] MEDS: Albuterol/Ipratropium 3.0-0.5 MG/3 ML Neb Soln NEB SCH ×4 (08:08→20:47)
[2020-03-18] MEDS: Pantoprazole 40 MG Vial IVPUSH SCH (09:19)
--- NOTE | 2020-03-18 09:44 | CR ---
CHEST: Portable 03/18/2020 at 6:18 AM CLINICAL HISTORY:Post intubation COMPARISON:03/16/2020 FINDINGS: Endotracheal tube is been placed in the mid to upper trachea. It is approximately 5 cm from the gabriele. Patient has small bilateral pleural effusions. There has been previous sternotomy. There is also been aortic stent placement. Pulmonary vascularity is normal. Impression: Interval endotracheal intubation Previous sternotomy and aortic stent placement Persistent small bibasal effusions.
[2020-03-18] MEDS: Sodium Chloride 0.9% 1,000 ML IV SCH ×2 (10:25→18:39)
--- NOTE | 2020-03-18 10:48 | ANES ---
DATE OF SERVICE: 03/18/2020 Angie is a 70-year-old female, patient of Andrea Gómez, in our Intensive Care Unit. She is here in our Intensive Care Unit, diuresed yesterday, and having progressive respiratory failure. I was consulted for stat intubation as well arterial line placement. Upon arrival, I found an unresponsive 70-year-old female in our Intensive Care Unit. I attempted with a MAC 3 to visualize the vocal cords. The patient did respond with mandibular pressure. I had to dose her with 50 mg of propofol and relax somewhat. I used a bougie x1, and a #8 endotracheal tube was placed and secured. Bilateral breath sounds, positive end-tidal CO2, and equal chest rise. After that was completed, I proceeded to locate the right radial artery. ChloraPrep was completed and I catheterized the right radial artery with a 20-gauge arterial catheter with good waveform and good blood return. The catheter was then secured with #2 suture with Devin needle and it was taped in place. I reported off to the nurses what was given. Vitals remained within normal and preprocedure parameters, and she tolerated the procedures quite well. Andrea Hunter CRNA /[id number]
[2020-03-18] MEDS ORDERED: Sodium Chloride 0.9% 1,000 ML IV SCH (11:45)
[2020-03-18] MEDS ORDERED: Levofloxacin/Dextrose 5%-Water 750 MG in Premix Bag 1 BAG IV SCH (18:00)
[2020-03-18] MEDS ORDERED: Enoxaparin 30 MG/0.3 ML Syringe SUBCUT SCH (18:00)
[2020-03-19] MEDS: methylPREDNISolone Sodium Succinate 40 MG/1 ML SDV IVPUSH SCH ×4 (01:30→19:46)
[2020-03-19] MEDS: Sodium Chloride 0.9% 1,000 ML IV SCH ×3 (04:30→23:27)
[2020-03-19] MEDS: propofoL 100 ML IV SCH ×2 (04:45→21:37)
[2020-03-19] MEDS: Albuterol/Ipratropium 3.0-0.5 MG/3 ML Neb Soln NEB SCH ×4 (07:15→21:36)
[2020-03-19] MEDS: Glycopyrrolate 15.6 MCG Cap.W.Dev Kit of 6 IH SCH ×2 (08:15→20:42)
[2020-03-19] MEDS: Pantoprazole 40 MG Vial IVPUSH SCH (08:25)
[2020-03-19] MEDS: Diltiazem 100 MG in Sodium Chloride 0.9% 100 ML IV SCH ×2 (09:05→19:24)
--- NOTE | 2020-03-19 09:07 | PCM.PN ---
- General Info Date of Service: 03/19/20 Subjective Update: There were no acute events overnight. Patient has rested well on the ventilator. Heart rate has remained around 100 and we have not had to start a diltiazem infusion as of early this morning. She is intubated but not sedated this morning. She has been doing well on a CPAP breathing trial at the time of my evaluation. She is unable to provide any history because of the intubation. She is able to follow commands and can squeeze hands on both left and right and wiggle her toes. She has a good cough. As the breathing trial progressed throughout the morning she became more lethargic. Her end-tidal CO2 stephy into the 50s. She is now back on assist control. We did start a diltiazem infusion to help slow down her heart rate and she has responded well at 10 mg/h. - Review of Systems General: Denies: Fever - Patient Data Vitals - Most Recent: Last Vital Signs Temp 36.2 C 03/19/20 08:00 Pulse 102 H 03/19/20 08:00 Resp 17 03/19/20 08:00 BP 122/70 03/19/20 08:00 Pulse Ox 97 03/19/20 08:00 Weight - Most Recent: 85.275 kg I&O - Last 24 Hours: Intake & Output 03/18/20 03/19/20 03/19/20 22:59 06:59 14:59 Intake Total 2352 50 Output Total 190 140 40 Balance 2162 -90 -40 Lab Results Last 24 Hours: Laboratory Results - last 24 hr 03/18/20 03/19/20 03/19/20 Range/Units 12:00 05:00 05:00 WBC 4.9 (4.5-11.0) K/uL RBC 3.20 L (3.30-5.50) M/uL Hgb 10.5 L D (12.0-15.0) g/dL Hct 34.2 L (36.0-48.0) % MCV 107 H (80-98) fL MCH 33 H (27-31) pg MCHC 31 L (32-36) % Plt Count 100 L (150-400) K/uL Puncture Site A-line A-line ABG pH 7.463 H 7.561 H (7.350-7.450) ABG pCO2 49.0 H 36.6 (35.0-42.0) mmHg ABG pO2 73.1 L 70.5 L (75.0-100.0) mmHg ABG HCO3 34.7 H 32.9 H (22.0-26.0) mmol/L ABG Total CO2 31.5 H 29.6 H (21.0-25.0) mmol/L ABG O2 Saturation 96.3 96.1 (95.0-98.0) % ABG O2 Content 14.2 L 13.7 L (15.0-23.0) %vol ABG Base Excess 9.8 10.0 mm/L ABG Hemoglobin 10.8 L 10.5 L (12.0-16.0) g/dL ABG Oxyhemoglobin 93.6 93.0 % ABG Carboxyhemoglobin 1.9 H 2.3 H (0.0-1.6) % ABG Methemoglobin 0.9 0.9 % Justus Test Not performed N/a O2 Delivery Device Ventilator Ventilator Oxygen Flow Rate L Sodium (140-148) mmol/L Potassium (3.6-5.2) mmol/L Chloride (100-108) mmol/L Carbon Dioxide (21-32) mmol/L Anion Gap (5.0-14.0) mmol/L BUN (7-18) mg/dL Creatinine (0.6-1.0) mg/dL Est Cr Clr Drug Dosing mL/min Estimated GFR (MDRD) (>60) Glucose (74-106) mg/dL Calcium (8.5-10.1) mg/dL Magnesium (1.8-2.4) mg/dL Total Bilirubin (0.2-1.0) mg/dL AST (15-37) U/L ALT (12-78) U/L Alkaline Phosphatase (46-116) U/L Total Protein (6.4-8.2) g/dL Albumin (3.4-5.0) g/dL Globulin (2.3-3.5) g/dL Albumin/Globulin Ratio (1.2-2.2) 03/19/20 Range/Units 05:00 WBC (4.5-11.0) K/uL RBC (3.30-5.50) M/uL Hgb (12.0-15.0) g/dL Hct (36.0-48.0) % MCV (80-98) fL MCH (27-31) pg MCHC (32-36) % Plt Count (150-400) K/uL Puncture Site ABG pH (7.350-7.450) ABG pCO2 (35.0-42.0) mmHg ABG pO2 (75.0-100.0) mmHg ABG HCO3 (22.0-26.0) mmol/L ABG Total CO2 (21.0-25.0) mmol/L ABG O2 Saturation (95.0-98.0) % ABG O2 Content (15.0-23.0) %vol ABG Base Excess mm/L ABG Hemoglobin (12.0-16.0) g/dL ABG Oxyhemoglobin % ABG Carboxyhemoglobin (0.0-1.6) % ABG Methemoglobin % Justus Test O2 Delivery Device Oxygen Flow Rate L Sodium 145 (140-148) mmol/L Potassium 3.3 L (3.6-5.2) mmol/L Chloride 107 (100-108) mmol/L Carbon Dioxide 34 H (21-32) mmol/L Anion Gap 7.3 (5.0-14.0) mmol/L BUN 44 H (7-18) mg/dL Creatinine 1.3 H (0.6-1.0) mg/dL Est Cr Clr Drug Dosing 36.18 mL/min Estimated GFR (MDRD) 40 L (>60) Glucose 128 H (74-106) mg/dL Calcium 7.7 L (8.5-10.1) mg/dL Magnesium 1.8 (1.8-2.4) mg/dL Total Bilirubin 0.9 (0.2-1.0) mg/dL AST 20 (15-37) U/L ALT 21 (12-78) U/L Alkaline Phosphatase 53 (46-116) U/L Total Protein 5.3 L (6.4-8.2) g/dL Albumin 2.7 L (3.4-5.0) g/dL Globulin 2.6 (2.3-3.5) g/dL Albumin/Globulin Ratio 1.0 L (1.2-2.2) Vikas Results Last 24 Hours: Microbiology 03/14/20 18:05 Aerobic Blood Culture - Preliminary Blood - Venous NO GROWTH AFTER 4 DAYS Anaerobic Blood Culture - Preliminary NO GROWTH AFTER 4 DAYS 03/14/20 18:05 Aerobic Blood Culture - Preliminary Blood - Venous - Lab Draw NO GROWTH AFTER 4 DAYS Anaerobic Blood Culture - Preliminary NO GROWTH AFTER 4 DAYS Med Orders - Current: Current Medications Acetaminophen (Tylenol) 650 mg PO Q4H PRN PRN Reason: Pain (Mild 1-3)/fever Last Admin: 03/18/20 00:18 Dose: 650 mg Documented by: Albuterol (Proventil Neb Soln) 2.5 mg NEB Q4H PRN PRN Reason: Shortness Of Breath/wheezing Last Admin: 03/18/20 00:38 Dose: 2.5 mg Documented by: Albuterol/Ipratropium (Duoneb 3.0-0.5 Mg/3 Ml) 3 ml NEB QIDRT [facility] Last Admin: 03/19/20 07:15 Dose: 3 ml Documented by: Aspirin (Aspirin) 81 mg PO DAILY [facility] Last Admin: 03/17/20 08:38 Dose: 81 mg Documented by: Atorvastatin Calcium (Lipitor) 40 mg PO Q48H [facility] Last Admin: 03/17/20 08:38 Dose: 40 mg Documented by: Citalopram Hydrobromide (Celexa) 10 mg PO DAILY [facility] Last Admin: 03/17/20 08:38 Dose: 10 mg Documented by: Enoxaparin Sodium (Lovenox) 30 mg SUBCUT Q24H [facility] Last Admin: 03/18/20 17:43 Dose: 30 mg Documented by: Glycopyrrolate (Seebri Neohaler) 15.6 mcg IH BIDRT [facility] Last Admin: 03/19/20 08:15 Dose: Not Given Documented by: Levofloxacin/Dextrose 750 mg/ (Premix) 150 mls @ 100 mls/hr IV Q48H [facility] Last Admin: 03/18/20 17:44 Dose: 100 mls/hr Documented by: Diltiazem HCl 100 mg/ Sodium (Chloride) 100 mls @ 5 mls/hr IV TITRATE [facility]; Protocol Propofol (Diprivan 100 Ml) 100 mls @ 2.558 mls/hr IV TITRATE [facility]; Protocol Last Admin: 03/18/20 22:05 Dose: 30 mcg/kg/min, 15.35 mls/hr Documented by: Vancomycin HCl 1.25 gm/ Sodium (Chloride) 250 mls @ 167 mls/hr IV Q24H [facility] Heparin Sodium (Porcine) 5,000 (units/ Sodium Chloride) 501 mls @ 1 mls/hr IV ASDIRECTED [facility] Last Admin: 03/18/20 08:00 Dose: 1 mls/hr Documented by: Ceftazidime 1 gm/ Sodium (Chloride) 50 mls @ 100 mls/hr IV Q8H [facility] Last Admin: 03/19/20 08:16 Dose: 100 mls/hr Documented by: Sodium Chloride (Normal Saline) 1,000 mls @ 100 mls/hr IV ASDIRECTED [facility] Last Admin: 03/18/20 18:39 Dose: 100 mls/hr Documented by: Lactobacillus Rhamnosus (Culturelle) 1 cap PO BID [facility] Last Admin: 03/17/20 21:22 Dose: 1 cap Documented by: Levothyroxine Sodium (Synthroid) 100 mcg PO ACBREAKFAST [facility] Last Admin: 03/17/20 07:50 Dose: 100 mcg Documented by: Lorazepam (Ativan) 0.5 mg PO Q4H PRN PRN Reason: Anxiety Last Admin: 03/17/20 03:25 Dose: 0.5 mg Documented by: Methylprednisolone Sodium Succinate (Solu-Medrol) 40 mg IVPUSH Q6H [facility] Last Admin: 03/19/20 08:21 Dose: 40 mg Documented by: Metoprolol Succinate (Toprol Xl) 25 mg PO DAILY [facility] Last Admin: 03/17/20 08:38 Dose: 25 mg Documented by: Ondansetron HCl (Zofran) 4 mg IV Q4H PRN PRN Reason: Nausea/Vomiting Last Admin: 03/18/20 00:18 Dose: 4 mg Documented by: Pantoprazole Sodium (Protonix Iv) 40 mg IVPUSH DAILY [facility] Last Admin: 03/19/20 08:25 Dose: 40 mg Documented by: Polyethylene Glycol (Miralax) 17 gm PO DAILY PRN PRN Reason: Constipation Sodium Chloride (Saline Flush) 10 ml FLUSH ASDIRECTED PRN PRN Reason: Keep Vein Open Discontinued Medications Albuterol/Ipratropium (Duoneb 3.0-0.5 Mg/3 Ml) 3 ml NEB ONETIME ONE Stop: 03/14/20 14:13 Last Admin: 03/14/20 14:30 Dose: 3 ml Documented by: Albuterol/Ipratropium (Duoneb 3.0-0.5 Mg/3 Ml) 3 ml NEB ONETIME ONE Stop: 03/14/20 15:28 Last Admin: 03/14/20 15:38 Dose: 3 ml Documented by: Albuterol/Ipratropium (Duoneb 3.0-0.5 Mg/3 Ml) 3 ml INH ONETIME ONE Stop: 03/14/20 17:01 Last Admin: 03/14/20 20:15 Dose: 3 ml Documented by: Albuterol/Ipratropium (Duoneb 3.0-0.5 Mg/3 Ml) Confirm Administered Dose 3 ml .ROUTE .STK-MED ONE Stop: 03/14/20 20:13 Last Admin: 03/14/20 20:21 Dose: Not Given Documented by: Digoxin (Lanoxin) Confirm Administered Dose 500 mcg .ROUTE .STK-MED ONE Stop: 03/14/20 20:06 Last Admin: 03/14/20 20:21 Dose: Not Given Documented by: Digoxin (Lanoxin) 250 mcg IVPUSH ONETIME ONE Stop: 03/14/20 19:56 Last Admin: 03/14/20 20:16 Dose: 250 mcg Documented by: Diltiazem HCl (Diltiazem) 10 mg IVPUSH ONETIME ONE Stop: 03/16/20 05:41 Last Admin: 03/16/20 05:55 Dose: 10 mg Documented by: Diltiazem HCl (Cardizem) 60 mg PO Q6HR [facility] Last Admin: 03/18/20 05:19 Dose: Not Given Documented by: Enoxaparin Sodium (Lovenox) 40 mg SUBCUT Q24H [facility] Last Admin: 03/17/20 17:41 Dose: 40 mg Documented by: Furosemide (Lasix) 20 mg IVPUSH NOW ONE Stop: 03/16/20 09:15 Last Admin: 03/16/20 09:33 Dose: 20 mg Documented by: Furosemide (Lasix) 20 mg IVPUSH ONETIME ONE Stop: 03/17/20 10:16 Last Admin: 03/17/20 11:11 Dose: 20 mg Documented by: Furosemide (Lasix) 20 mg IVPUSH ONETIME ONE Stop: 03/17/20 18:01 Last Admin: 03/17/20 17:41 Dose: 20 mg Documented by: Heparin Sodium (Porcine) (Heparin Sodium) Confirm Administered Dose 5,000 units .ROUTE .STK-MED ONE Stop: 03/18/20 05:45 Last Admin: 03/18/20 07:17 Dose: Not Given Documented by: Hydrochlorothiazide (Hydrochlorothiazide) 25 mg PO DAILY [facility] Last Admin: 03/17/20 08:38 Dose: 25 mg Documented by: Ceftriaxone Sodium 2 gm/ (Sodium Chloride) 50 mls @ 100 mls/hr IV ONETIME ONE Stop: 03/14/20 16:07 Last Admin: 03/14/20 18:00 Dose: 100 mls/hr Documented by: Ceftriaxone Sodium 1 gm/ (Sodium Chloride) 50 mls @ 100 mls/hr IV Q24H [facility] Last Admin: 03/17/20 16:49 Dose: 100 mls/hr Documented by: Doxycycline Hyclate 100 mg/ (Sodium Chloride) 100 mls @ 100 mls/hr IV Q12H [facility] Last Admin: 03/16/20 17:55 Dose: 100 mls/hr Documented by: Sodium Chloride (Normal Saline) 1,000 mls @ 125 mls/hr IV ASDIRECTED [facility] Last Admin: 03/15/20 04:17 Dose: 125 mls/hr Documented by: Sodium Chloride (Normal Saline) 100 mls @ 3 mls/sec IV ASDIRECTED [facility] Last Admin: 03/14/20 18:16 Dose: 3 mls/sec Documented by: Lactated Ringer's (Ringers, Lactated) 500 mls @ 999 mls/hr IV .BOLUS ONE Stop: 03/14/20 20:30 Last Admin: 03/14/20 20:08 Dose: 999 mls/hr Documented by: Diltiazem HCl 100 mg/ Sodium (Chloride) 100 mls @ 5 mls/hr IV TITRATE [facility]; Protocol Stop: 03/17/20 16:00 Last Admin: 03/17/20 11:12 Dose: 10 mg/hr, 10 mls/hr Documented by: Levofloxacin/Dextrose 750 mg/ (Premix) 150 mls @ 100 mls/hr IV Q24H [facility] Last Admin: 03/16/20 19:24 Dose: 100 mls/hr Documented by: Sodium Chloride (Normal Saline) 1,000 mls @ 500 mls/hr IV ONETIME ONE Stop: 03/17/20 09:44 Last Admin: 03/17/20 07:48 Dose: 500 mls/hr Documented by: Sodium Chloride (Normal Saline) 1,000 mls @ 100 mls/hr IV ASDIRECTED [facility] Last Admin: 03/17/20 09:44 Dose: 100 mls/hr Documented by: Propofol (Diprivan 100 Ml) Confirm Administered Dose 100 mls @ as directed .ROUTE .STK-MED ONE Stop: 03/18/20 06:01 Last Admin: 03/18/20 07:17 Dose: Not Given Documented by: Sodium Chloride (Normal Saline) 500 mls @ 999 mls/hr IV ASDIRECTED [facility] Stop: 03/18/20 07:01 Ceftazidime 1 gm/ Sodium (Chloride) 50 mls @ 100 mls/hr IV Q8HR [facility] Vancomycin HCl 1.5 gm/ Sodium (Chloride) 250 mls @ 167 mls/hr IV ONETIME ONE Stop: 03/18/20 08:59 Last Admin: 03/18/20 08:13 Dose: 167 mls/hr Documented by: Sodium Chloride (Normal Saline) 500 mls @ 999 mls/hr IV ASDIRECTED ONE Stop: 03/18/20 07:45 Last Admin: 03/18/20 07:20 Dose: 999 mls/hr Documented by: Ceftazidime 1 gm/ Sodium (Chloride) 50 mls @ 100 mls/hr IV Q8H [facility] Stop: 03/18/20 14:30 Last Admin: 03/18/20 09:21 Dose: Not Given Documented by: Iopamidol (Isovue-370 (76%)) 100 ml IV . DIRECTED [facility] Last Admin: 03/14/20 18:16 Dose: 100 ml Documented by: Methylprednisolone Sodium Succinate (Solu-Medrol) 125 mg IVPUSH ONETIME ONE Stop: 03/14/20 14:14 Last Admin: 03/14/20 14:41 Dose: 125 mg Documented by: Methylprednisolone Sodium Succinate (Solu-Medrol) 40 mg IVPUSH Q6H [facility] Methylprednisolone Sodium Succinate (Solu-Medrol) 40 mg IVPUSH Q6H [facility] Last Admin: 03/18/20 08:15 Dose: 40 mg Documented by: Methylprednisolone Sodium Succinate (Solu-Medrol) 40 mg IVPUSH ONETIME ONE Stop: 03/14/20 19:00 Last Admin: 03/14/20 19:15 Dose: 40 mg Documented by: Pantoprazole Sodium (Protonix) 40 mg PO ACBREAKFAST [facility] Last Admin: 03/17/20 07:51 Dose: 40 mg Documented by: - Exam Quality Assessment: Supplemental Oxygen General: Alert, Cooperative, No Acute Distress HEENT: Pupils Equal Lungs: Normal Respiratory Effort, Crackles (few right lung base) Cardiovascular: Irregular Rhythm, Tachycardia GI/Abdominal Exam: Soft, No Distention Extremities: No Pedal Edema. No: Increased Warmth Skin: Warm, Dry Psy/Mental Status: Alert. No: Agitated Sepsis Event Note - Evaluation Sepsis Screening Result: Severe Sepsis Risk - Focused Exam Vital Signs: Vital Signs Temp Pulse Resp BP Pulse Ox 03/19/20 08:00 36.2 C 102 H 17 122/70 97 03/19/20 07:00 99 16 121/65 98 03/19/20 02:00 96 16 110/66 98 03/19/20 00:00 35.6 C L 99 16 110/64 97 03/18/20 22:00 105 H 21 H 121/90 100 Date Exam was Performed: 03/19/20 Time Exam was Performed: 14:45 - Problem List Review Problem List Initiated/Reviewed/Updated: Yes - My Orders Last 24 Hours: My Active Orders 03/18/20 09:00 Pantoprazole [ProTONIX IV] 40 mg IVPUSH DAILY 03/18/20 09:45 Sodium Chloride 0.9% [Normal Saline] 1,000 ml IV ASDIRECTED 03/18/20 10:15 Insert Burnett Catheter [Insert Urinary Catheter] [OM.PC] Q24H 03/18/20 16:00 cefTAZidime Pentahydrate [Fortaz] 1 gm Sodium Chloride 0.9% [Normal Saline] 50 ml IV Q8H 03/19/20 05:00 Chest 1V Frontal [CR] DAILY 03/19/20 07:00 RT Ventilator Weaning [RC] DAILY 03/19/20 08:00 Vancomycin 1.25 gm Sodium Chloride 0.9% [Normal Saline] 250 ml IV Q24H 03/19/20 09:15 Potassium Chloride 20 MEQ,Lidocaine 1% 2 ML IN 100ML NS @ 50 MLS/HR Potassium Chloride 20 meq Lidocaine 1% [Xylocaine 1%] 2 ml Sodium Chloride 0.9% [Normal Saline] 100 ml IV Q2H 03/20/20 05:00 Chest 1V Frontal [CR] DAILY BASIC METABOLIC PANEL,BMP [CHEM] Timed BLOOD GAS ARTERIAL [BG] Timed CBC W/O DIFF,HEMOGRAM [HEME] Timed (1) 03/21/20 05:00 Chest 1V Frontal [CR] DAILY 03/22/20 05:00 Chest 1V Frontal [CR] DAILY - Plan Plan:: ASSESSMENT AND PLAN ACUTE ON CHRONIC RESPIRATORY FAILURE WITH HYPOXIA AND HYPERCAPNIA-known history of oxygen dependent COPD. Echocardiogram showed significant diastolic dysfunction and a low normal ejection fraction as well as moderately severe aortic insufficiency, mitral regurgitation and tricuspid regurgitation. Suspect she has combination of COPD and pulmonary vascular disease secondary to congestion from her valvular abnormalities leading to her worsening respiratory status. Did fairly well with her breathing trial this morning but not quite ready for extubation. -Continue mechanical ventilation -Repeat blood gases this afternoon -Nebulizer therapy -Solu-Medrol 40 mg IV every 6 hours -Continue levofloxacin, ceftazidime and vancomycin BILATERAL PNEUMONIA-complicated by acute on chronic respiratory failure as above. No fevers. CRP is in the normal range at this time. -Management as above COPD EXACERBATION -Management as above ABDOMINAL PAIN-present over the past few months, progressively worse. Will defer work-up until respiratory status improves. -Consider CT scan of abdomen and pelvis -Consider EGD HISTORY OF THORACIC AORTIC ANEURYSM-status post surgical repair with stenting. CT scan shows enlargement compared to previous study. -Outpatient follow-up with her vascular surgeon MAINTENANCE ISSUES -DVT prophylaxis; enoxaparin -GI prophylaxis; PPI -Burnett catheter; not indicated -Nutrition; 2 g sodium diet DISPOSITION-anticipate discharge to home versus subacute rehab after the hospital stay. Oskar Salazar MD
--- NOTE | 2020-03-19 10:03 | CR ---
CHEST: Portable 03/19/2020 at 2:04 AM CLINICAL HISTORY:Follow-up, intubation COMPARISON:03/18/2020 FINDINGS: Endotracheal tube remains in the mid to upper calf. There is persistent bilateral pleural effusions. There is some increase in bilateral lower lobe airspace disease. Some of this may be atelectasis. Heart is enlarged. Aortic stent is in place. Impression: Endotracheal tube unchanged in position Bibasal effusions Increasing lower lobe airspace disease may represent some atelectasis
[2020-03-19] MEDS: Potassium Chloride 20 MEQ, Lidocaine 1% 2 ML in Sodium Chloride 0.9% 100 ML IV SCH ×2 (10:45→13:10)
[2020-03-19] MEDS: Enoxaparin 40 MG/0.4 ML Syringe SUBCUT SCH (17:36)
[2020-03-20] MEDS: methylPREDNISolone Sodium Succinate 40 MG/1 ML SDV IVPUSH SCH ×4 (02:32→19:30)
[2020-03-20] MEDS: propofoL 100 ML IV SCH (03:49)
[2020-03-20] MEDS: Glycopyrrolate 15.6 MCG Cap.W.Dev Kit of 6 IH SCH ×2 (07:02→20:23)
[2020-03-20] MEDS: Albuterol/Ipratropium 3.0-0.5 MG/3 ML Neb Soln NEB SCH ×4 (07:05→20:42)
[2020-03-20] MEDS: Pantoprazole 40 MG Vial IVPUSH SCH (08:44)
--- NOTE | 2020-03-20 09:07 | PCM.PN ---
- General Info Date of Service: 03/20/20 Subjective Update: No acute events overnight. Patient did decent with her CPAP trial yesterday but did tire out. She had a fairly uneventful night. Blood gases look good this morning. She did well with a CPAP trial but did tire out fairly quickly. She is doing well with SIMV and pressure support. Chest x-ray shows some improvement in the right lower lobe infiltrate. Doing better but still not quite ready for extubation. Kidney function stable to improved. Functional Status: Reports: Pain Controlled, Other (intubated but not sedated ) - Review of Systems General: Denies: Fever - Patient Data Vitals - Most Recent: Last Vital Signs Temp 36.8 C 03/20/20 08:00 Pulse 116 H 03/20/20 08:00 Resp 13 03/20/20 08:00 BP 124/74 03/20/20 08:00 Pulse Ox 96 03/20/20 08:00 Weight - Most Recent: 85.275 kg I&O - Last 24 Hours: Intake & Output 03/19/20 03/20/20 03/20/20 22:59 06:59 14:59 Intake Total 2115 100 300 Output Total 241 225 40 Balance 1874 -125 260 Lab Results Last 24 Hours: Laboratory Results - last 24 hr 03/19/20 03/20/20 03/20/20 Range/Units 16:00 04:45 04:45 WBC 3.9 L (4.5-11.0) K/uL RBC 3.21 L (3.30-5.50) M/uL Hgb 10.4 L (12.0-15.0) g/dL Hct 34.2 L (36.0-48.0) % MCV 107 H (80-98) fL MCH 32 H (27-31) pg MCHC 30 L (32-36) % Plt Count 88 L (150-400) K/uL Puncture Site A-line A-line ABG pH 7.474 H 7.444 (7.350-7.450) ABG pCO2 44.4 H 46.4 H (35.0-42.0) mmHg ABG pO2 87.4 86.3 (75.0-100.0) mmHg ABG HCO3 32.2 H 31.3 H (22.0-26.0) mmol/L ABG Total CO2 29.3 H 28.6 H (21.0-25.0) mmol/L ABG O2 Saturation 97.1 96.7 (95.0-98.0) % ABG O2 Content 14.2 L 14.2 L (15.0-23.0) %vol ABG Base Excess 8.0 6.7 mm/L ABG Hemoglobin 10.5 L 10.6 L (12.0-16.0) g/dL ABG Oxyhemoglobin 94.9 94.6 % ABG Carboxyhemoglobin 1.4 1.3 (0.0-1.6) % ABG Methemoglobin 0.9 0.9 % Justus Test A-line A-line O2 Delivery Device Ventilator Ventilator Oxygen Flow Rate L Sodium (140-148) mmol/L Potassium (3.6-5.2) mmol/L Chloride (100-108) mmol/L Carbon Dioxide (21-32) mmol/L Anion Gap (5.0-14.0) mmol/L BUN (7-18) mg/dL Creatinine (0.6-1.0) mg/dL Est Cr Clr Drug Dosing mL/min Estimated GFR (MDRD) (>60) Glucose (74-106) mg/dL Calcium (8.5-10.1) mg/dL 03/20/20 Range/Units 04:45 WBC (4.5-11.0) K/uL RBC (3.30-5.50) M/uL Hgb (12.0-15.0) g/dL Hct (36.0-48.0) % MCV (80-98) fL MCH (27-31) pg MCHC (32-36) % Plt Count (150-400) K/uL Puncture Site ABG pH (7.350-7.450) ABG pCO2 (35.0-42.0) mmHg ABG pO2 (75.0-100.0) mmHg ABG HCO3 (22.0-26.0) mmol/L ABG Total CO2 (21.0-25.0) mmol/L ABG O2 Saturation (95.0-98.0) % ABG O2 Content (15.0-23.0) %vol ABG Base Excess mm/L ABG Hemoglobin (12.0-16.0) g/dL ABG Oxyhemoglobin % ABG Carboxyhemoglobin (0.0-1.6) % ABG Methemoglobin % Justus Test O2 Delivery Device Oxygen Flow Rate L Sodium 146 (140-148) mmol/L Potassium 3.4 L (3.6-5.2) mmol/L Chloride 108 (100-108) mmol/L Carbon Dioxide 31 (21-32) mmol/L Anion Gap 10.4 (5.0-14.0) mmol/L BUN 40 H (7-18) mg/dL Creatinine 1.1 H (0.6-1.0) mg/dL Est Cr Clr Drug Dosing 42.75 mL/min Estimated GFR (MDRD) 49 L (>60) Glucose 136 H (74-106) mg/dL Calcium 7.6 L (8.5-10.1) mg/dL Vikas Results Last 24 Hours: Microbiology 03/14/20 18:05 Aerobic Blood Culture - Final Blood - Venous NO GROWTH AFTER 5 DAYS Anaerobic Blood Culture - Final NO GROWTH AFTER 5 DAYS 03/14/20 18:05 Aerobic Blood Culture - Final Blood - Venous - Lab Draw NO GROWTH AFTER 5 DAYS Anaerobic Blood Culture - Final NO GROWTH AFTER 5 DAYS Med Orders - Current: Current Medications Acetaminophen (Tylenol) 650 mg PO Q4H PRN PRN Reason: Pain (Mild 1-3)/fever Last Admin: 03/18/20 00:18 Dose: 650 mg Documented by: Albuterol (Proventil Neb Soln) 2.5 mg NEB Q4H PRN PRN Reason: Shortness Of Breath/wheezing Last Admin: 03/18/20 00:38 Dose: 2.5 mg Documented by: Albuterol/Ipratropium (Duoneb 3.0-0.5 Mg/3 Ml) 3 ml NEB QIDRT [facility] Last Admin: 03/20/20 07:05 Dose: 3 ml Documented by: Aspirin (Aspirin) 81 mg PO DAILY [facility] Last Admin: 03/17/20 08:38 Dose: 81 mg Documented by: Atorvastatin Calcium (Lipitor) 40 mg PO Q48H [facility] Last Admin: 03/17/20 08:38 Dose: 40 mg Documented by: Citalopram Hydrobromide (Celexa) 10 mg PO DAILY [facility] Last Admin: 03/17/20 08:38 Dose: 10 mg Documented by: Enoxaparin Sodium (Lovenox) 40 mg SUBCUT Q24H [facility] Last Admin: 03/19/20 17:36 Dose: 40 mg Documented by: Glycopyrrolate (Seebri Neohaler) 15.6 mcg IH BIDRT [facility] Last Admin: 03/20/20 07:02 Dose: Not Given Documented by: Levofloxacin/Dextrose 750 mg/ (Premix) 150 mls @ 100 mls/hr IV Q48H [facility] Last Admin: 03/18/20 17:44 Dose: 100 mls/hr Documented by: Diltiazem HCl 100 mg/ Sodium (Chloride) 100 mls @ 5 mls/hr IV TITRATE [facility]; Protocol Last Admin: 03/19/20 19:24 Dose: 7.5 mg/hr, 7.5 mls/hr Documented by: Propofol (Diprivan 100 Ml) 100 mls @ 2.558 mls/hr IV TITRATE [facility]; Protocol Last Admin: 03/20/20 03:49 Dose: 30 mcg/kg/min, 15.35 mls/hr Documented by: Vancomycin HCl 1.25 gm/ Sodium (Chloride) 250 mls @ 167 mls/hr IV Q24H [facility] Last Admin: 03/20/20 08:44 Dose: 167 mls/hr Documented by: Heparin Sodium (Porcine) 5,000 (units/ Sodium Chloride) 501 mls @ 1 mls/hr IV ASDIRECTED [facility] Last Admin: 03/18/20 08:00 Dose: 1 mls/hr Documented by: Ceftazidime 1 gm/ Sodium (Chloride) 50 mls @ 100 mls/hr IV Q8H [facility] Last Admin: 03/20/20 07:58 Dose: 100 mls/hr Documented by: Sodium Chloride (Normal Saline) 1,000 mls @ 100 mls/hr IV ASDIRECTED [facility] Last Admin: 03/19/20 23:27 Dose: 100 mls/hr Documented by: Lactobacillus Rhamnosus (Culturelle) 1 cap PO BID [facility] Last Admin: 03/17/20 21:22 Dose: 1 cap Documented by: Levothyroxine Sodium (Synthroid) 100 mcg PO ACBREAKFAST [facility] Last Admin: 03/17/20 07:50 Dose: 100 mcg Documented by: Lorazepam (Ativan) 0.5 mg PO Q4H PRN PRN Reason: Anxiety Last Admin: 03/17/20 03:25 Dose: 0.5 mg Documented by: Methylprednisolone Sodium Succinate (Solu-Medrol) 40 mg IVPUSH Q6H [facility] Last Admin: 03/20/20 07:58 Dose: 40 mg Documented by: Metoprolol Succinate (Toprol Xl) 25 mg PO DAILY [facility] Last Admin: 03/17/20 08:38 Dose: 25 mg Documented by: Ondansetron HCl (Zofran) 4 mg IV Q4H PRN PRN Reason: Nausea/Vomiting Last Admin: 03/18/20 00:18 Dose: 4 mg Documented by: Pantoprazole Sodium (Protonix Iv) 40 mg IVPUSH DAILY [facility] Last Admin: 03/20/20 08:44 Dose: 40 mg Documented by: Polyethylene Glycol (Miralax) 17 gm PO DAILY PRN PRN Reason: Constipation Sodium Chloride (Saline Flush) 10 ml FLUSH ASDIRECTED PRN PRN Reason: Keep Vein Open Discontinued Medications Albuterol/Ipratropium (Duoneb 3.0-0.5 Mg/3 Ml) 3 ml NEB ONETIME ONE Stop: 03/14/20 14:13 Last Admin: 03/14/20 14:30 Dose: 3 ml Documented by: Albuterol/Ipratropium (Duoneb 3.0-0.5 Mg/3 Ml) 3 ml NEB ONETIME ONE Stop: 03/14/20 15:28 Last Admin: 03/14/20 15:38 Dose: 3 ml Documented by: Albuterol/Ipratropium (Duoneb 3.0-0.5 Mg/3 Ml) 3 ml INH ONETIME ONE Stop: 03/14/20 17:01 Last Admin: 03/14/20 20:15 Dose: 3 ml Documented by: Albuterol/Ipratropium (Duoneb 3.0-0.5 Mg/3 Ml) Confirm Administered Dose 3 ml .ROUTE .STK-MED ONE Stop: 03/14/20 20:13 Last Admin: 03/14/20 20:21 Dose: Not Given Documented by: Digoxin (Lanoxin) Confirm Administered Dose 500 mcg .ROUTE .STK-MED ONE Stop: 03/14/20 20:06 Last Admin: 03/14/20 20:21 Dose: Not Given Documented by: Digoxin (Lanoxin) 250 mcg IVPUSH ONETIME ONE Stop: 03/14/20 19:56 Last Admin: 03/14/20 20:16 Dose: 250 mcg Documented by: Diltiazem HCl (Diltiazem) 10 mg IVPUSH ONETIME ONE Stop: 03/16/20 05:41 Last Admin: 03/16/20 05:55 Dose: 10 mg Documented by: Diltiazem HCl (Cardizem) 60 mg PO Q6HR [facility] Last Admin: 03/18/20 05:19 Dose: Not Given Documented by: Enoxaparin Sodium (Lovenox) 40 mg SUBCUT Q24H [facility] Last Admin: 03/17/20 17:41 Dose: 40 mg Documented by: Enoxaparin Sodium (Lovenox) 30 mg SUBCUT Q24H [facility] Last Admin: 03/18/20 17:43 Dose: 30 mg Documented by: Furosemide (Lasix) 20 mg IVPUSH NOW ONE Stop: 03/16/20 09:15 Last Admin: 03/16/20 09:33 Dose: 20 mg Documented by: Furosemide (Lasix) 20 mg IVPUSH ONETIME ONE Stop: 03/17/20 10:16 Last Admin: 03/17/20 11:11 Dose: 20 mg Documented by: Furosemide (Lasix) 20 mg IVPUSH ONETIME ONE Stop: 03/17/20 18:01 Last Admin: 03/17/20 17:41 Dose: 20 mg Documented by: Heparin Sodium (Porcine) (Heparin Sodium) Confirm Administered Dose 5,000 units .ROUTE .STK-MED ONE Stop: 03/18/20 05:45 Last Admin: 03/18/20 07:17 Dose: Not Given Documented by: Hydrochlorothiazide (Hydrochlorothiazide) 25 mg PO DAILY [facility] Last Admin: 03/17/20 08:38 Dose: 25 mg Documented by: Ceftriaxone Sodium 2 gm/ (Sodium Chloride) 50 mls @ 100 mls/hr IV ONETIME ONE Stop: 03/14/20 16:07 Last Admin: 03/14/20 18:00 Dose: 100 mls/hr Documented by: Ceftriaxone Sodium 1 gm/ (Sodium Chloride) 50 mls @ 100 mls/hr IV Q24H [facility] Last Admin: 03/17/20 16:49 Dose: 100 mls/hr Documented by: Doxycycline Hyclate 100 mg/ (Sodium Chloride) 100 mls @ 100 mls/hr IV Q12H [facility] Last Admin: 03/16/20 17:55 Dose: 100 mls/hr Documented by: Sodium Chloride (Normal Saline) 1,000 mls @ 125 mls/hr IV ASDIRECTED [facility]IKA Last Admin: 03/15/20 04:17 Dose: 125 mls/hr Documented by: Sodium Chloride (Normal Saline) 100 mls @ 3 mls/sec IV ASDIRECTED [facility] Last Admin: 03/14/20 18:16 Dose: 3 mls/sec Documented by: Lactated Ringer's (Ringers, Lactated) 500 mls @ 999 mls/hr IV .BOLUS ONE Stop: 03/14/20 20:30 Last Admin: 03/14/20 20:08 Dose: 999 mls/hr Documented by: Diltiazem HCl 100 mg/ Sodium (Chloride) 100 mls @ 5 mls/hr IV TITRATE [facility]; Protocol Stop: 03/17/20 16:00 Last Admin: 03/17/20 11:12 Dose: 10 mg/hr, 10 mls/hr Documented by: Levofloxacin/Dextrose 750 mg/ (Premix) 150 mls @ 100 mls/hr IV Q24H [facility] Last Admin: 03/16/20 19:24 Dose: 100 mls/hr Documented by: Sodium Chloride (Normal Saline) 1,000 mls @ 500 mls/hr IV ONETIME ONE Stop: 03/17/20 09:44 Last Admin: 03/17/20 07:48 Dose: 500 mls/hr Documented by: Sodium Chloride (Normal Saline) 1,000 mls @ 100 mls/hr IV ASDIRECTED [facility] Last Admin: 03/17/20 09:44 Dose: 100 mls/hr Documented by: Propofol (Diprivan 100 Ml) Confirm Administered Dose 100 mls @ as directed .ROUTE .STK-MED ONE Stop: 03/18/20 06:01 Last Admin: 03/18/20 07:17 Dose: Not Given Documented by: Sodium Chloride (Normal Saline) 500 mls @ 999 mls/hr IV ASDIRECTED [facility] Stop: 03/18/20 07:01 Ceftazidime 1 gm/ Sodium (Chloride) 50 mls @ 100 mls/hr IV Q8HR [facility] Vancomycin HCl 1.5 gm/ Sodium (Chloride) 250 mls @ 167 mls/hr IV ONETIME ONE Stop: 03/18/20 08:59 Last Admin: 03/18/20 08:13 Dose: 167 mls/hr Documented by: Sodium Chloride (Normal Saline) 500 mls @ 999 mls/hr IV ASDIRECTED ONE Stop: 03/18/20 07:45 Last Admin: 03/18/20 07:20 Dose: 999 mls/hr Documented by: Ceftazidime 1 gm/ Sodium (Chloride) 50 mls @ 100 mls/hr IV Q8H [facility] Stop: 03/18/20 14:30 Last Admin: 03/18/20 09:21 Dose: Not Given Documented by: Potassium Chloride 20 meq/Lidocaine HCl 2 ml/ Sodium Chloride 112 mls @ 56 mls/hr IV Q2H [facility] Stop: 03/19/20 13:59 Last Admin: 03/19/20 13:10 Dose: 56 mls/hr Documented by: Iopamidol (Isovue-370 (76%)) 100 ml IV . DIRECTED [facility] Last Admin: 03/14/20 18:16 Dose: 100 ml Documented by: Methylprednisolone Sodium Succinate (Solu-Medrol) 125 mg IVPUSH ONETIME ONE Stop: 03/14/20 14:14 Last Admin: 03/14/20 14:41 Dose: 125 mg Documented by: Methylprednisolone Sodium Succinate (Solu-Medrol) 40 mg IVPUSH Q6H [facility] Methylprednisolone Sodium Succinate (Solu-Medrol) 40 mg IVPUSH Q6H [facility] Last Admin: 03/18/20 08:15 Dose: 40 mg Documented by: Methylprednisolone Sodium Succinate (Solu-Medrol) 40 mg IVPUSH ONETIME ONE Stop: 03/14/20 19:00 Last Admin: 03/14/20 19:15 Dose: 40 mg Documented by: Pantoprazole Sodium (Protonix) 40 mg PO ACBREAKFAST [facility] Last Admin: 03/17/20 07:51 Dose: 40 mg Documented by: - Exam Quality Assessment: Supplemental Oxygen General: Alert, Cooperative, No Acute Distress HEENT: Pupils Equal Lungs: Normal Respiratory Effort, Rhonchi (moderate diffuse). No: Wheezing Cardiovascular: Irregular Rhythm, Tachycardia GI/Abdominal Exam: Soft, No Distention Extremities: No Pedal Edema, Other (left arm edema). No: Increased Warmth Skin: Warm, Dry Psy/Mental Status: Alert, Normal Affect. No: Agitated Sepsis Event Note - Evaluation Sepsis Screening Result: Sepsis Risk - Focused Exam Vital Signs: Vital Signs Temp Pulse Resp BP Pulse Ox 03/20/20 08:00 36.8 C 116 H 13 124/74 96 03/20/20 07:02 84 03/20/20 06:00 14 105/64 96 03/20/20 05:00 14 111/67 96 03/20/20 04:00 96 14 112/68 96 03/20/20 03:00 16 112/68 95 03/20/20 02:00 37.0 C 105 H 14 112/68 95 03/20/20 01:00 14 107/64 98 03/20/20 00:00 109 H 14 103/63 97 Date Exam was Performed: 03/20/20 Time Exam was Performed: 13:16 - Problem List Review Problem List Initiated/Reviewed/Updated: Yes - My Orders Last 24 Hours: My Active Orders 03/20/20 05:00 Chest 1V Frontal [CR] DAILY 03/20/20 09:04 Furosemide [Lasix] 20 mg IVPUSH ONETIME ONE 03/20/20 10:15 Insert Burnett Catheter [Insert Urinary Catheter] [OM.PC] Q24H 03/21/20 05:00 Chest 1V Frontal [CR] DAILY BASIC METABOLIC PANEL,BMP [CHEM] Timed BLOOD GAS ARTERIAL [BG] Timed CBC W/O DIFF,HEMOGRAM [HEME] Timed (1) 03/22/20 05:00 Chest 1V Frontal [CR] DAILY - Plan Plan:: ASSESSMENT AND PLAN ACUTE ON CHRONIC RESPIRATORY FAILURE WITH HYPOXIA AND HYPERCAPNIA-tired out during CPAP trial yesterday. Decent night. Seems to be tiring out with CPAP trial again this morning but doing better with SIMV. Not quite ready for extubation but is getting close. -Continue mechanical ventilation -Continue SIMV as long as possible today -Weaning trial again in the morning -Repeat blood gases this afternoon -Nebulizer therapy -Solu-Medrol 40 mg IV every 6 hours -Continue levofloxacin, ceftazidime -Discontinue vancomycin BILATERAL PNEUMONIA-complicated by acute on chronic respiratory failure as above. No fevers. -Management as above COPD EXACERBATION -Management as above ABDOMINAL PAIN-present over the past few months, progressively worse. Will defer work-up until respiratory status improves. -Consider CT scan of abdomen and pelvis -Consider EGD HISTORY OF THORACIC AORTIC ANEURYSM-status post surgical repair with stenting. CT scan shows enlargement compared to previous study. -Outpatient follow-up with her vascular surgeon MAINTENANCE ISSUES -DVT prophylaxis; enoxaparin -GI prophylaxis; PPI -Burnett catheter; not indicated -Nutrition; 2 g sodium diet DISPOSITION-anticipate discharge to home versus subacute rehab after the hospital stay. Oskar Salazar MD
[2020-03-20] MEDS: LORazepam 2 MG/ML SDV IVPUSH PRN ×3 (09:15→20:58)
[2020-03-20] MEDS: Sodium Chloride 0.9% 1,000 ML IV SCH (09:31)
[2020-03-20] MEDS ORDERED: Furosemide 20 MG/2 ML VIAL IVPUSH ONE (10:00)
--- NOTE | 2020-03-20 10:04 | CR ---
CHEST: Portable 03/20/2020 at 3:12 AM CLINICAL HISTORY:Follow-up intubation COMPARISON:03/19/2020 FINDINGS: Endotracheal tube remains in the midtrachea. Bilateral pleural effusions persist. Heart is enlarged. Pulmonary vascularity is cephalized. There is persistent bibasilar airspace disease similar to prior study. Impression: Endotracheal tube unchanged in position No significant change in bibasal effusions and bibasilar airspace disease
[2020-03-20] MEDS: Potassium Chloride 20 MEQ, Lidocaine 1% 2 ML in Sodium Chloride 0.9% 100 ML IV SCH ×2 (10:15→14:01)
[2020-03-20] MEDS: Diltiazem 100 MG in Sodium Chloride 0.9% 100 ML IV SCH (12:21)
[2020-03-20] MEDS: Levofloxacin/Dextrose 5%-Water 750 MG in Premix Bag 1 BAG IV SCH (14:10)
[2020-03-20] MEDS: Enoxaparin 40 MG/0.4 ML Syringe SUBCUT SCH (18:20)
[2020-03-21] MEDS: Diltiazem 100 MG in Sodium Chloride 0.9% 100 ML IV SCH ×3 (00:23→20:22)
[2020-03-21] MEDS: methylPREDNISolone Sodium Succinate 40 MG/1 ML SDV IVPUSH SCH ×4 (02:26→20:53)
[2020-03-21] MEDS: LORazepam 2 MG/ML SDV IVPUSH PRN (03:21)
[2020-03-21] MEDS: Albuterol/Ipratropium 3.0-0.5 MG/3 ML Neb Soln NEB SCH ×4 (06:57→20:53)
[2020-03-21] MEDS: Glycopyrrolate 15.6 MCG Cap.W.Dev Kit of 6 IH SCH ×2 (06:57→20:53)
[2020-03-21] MEDS ORDERED: Furosemide 20 MG/2 ML VIAL IVPUSH ONE (09:01)
--- NOTE | 2020-03-21 09:04 | PCM.PN ---
- General Info Date of Service: 03/21/20 Subjective Update: There were no acute events overnight. Patient did very well with her SIMV yesterday and remained on it overnight. She did fairly well with her CPAP trial this morning but did have a slight rise in her PCO2. Chest x-ray suggested increasing effusion on the right and persistent small effusion on the left. PCO2 has improved some with the diuresis administered this morning. Patient is alert and interactive and answering questions as best she can well still intubated. She is able to write messages with a pen and paper. She has not had any fevers. Functional Status: Reports: Pain Controlled - Review of Systems General: Denies: Fever - Patient Data Vitals - Most Recent: Last Vital Signs Temp 36.3 C 03/21/20 08:00 Pulse 117 H 03/21/20 08:00 Resp 20 03/21/20 08:00 BP 120/69 03/21/20 08:00 Pulse Ox 96 03/21/20 08:56 Weight - Most Recent: 85.275 kg I&O - Last 24 Hours: Intake & Output 03/20/20 03/21/20 03/21/20 22:59 06:59 14:59 Intake Total 591 832 Output Total 220 270 30 Balance 371 562 -30 Lab Results Last 24 Hours: Laboratory Results - last 24 hr 03/20/20 03/20/20 03/21/20 Range/Units 16:00 16:00 04:52 WBC 5.4 (4.5-11.0) K/uL RBC 3.39 (3.30-5.50) M/uL Hgb 10.9 L (12.0-15.0) g/dL Hct 36.3 (36.0-48.0) % MCV 107 H (80-98) fL MCH 32 H (27-31) pg MCHC 30 L (32-36) % Plt Count 98 L (150-400) K/uL Puncture Site A-line ABG pH 7.424 (7.350-7.450) ABG pCO2 48.0 H (35.0-42.0) mmHg ABG pO2 79.9 (75.0-100.0) mmHg ABG HCO3 30.9 H (22.0-26.0) mmol/L ABG Total CO2 28.1 H (21.0-25.0) mmol/L ABG O2 Saturation 96.4 (95.0-98.0) % ABG O2 Content 14.8 L (15.0-23.0) %vol ABG Base Excess 6.0 mm/L ABG Hemoglobin 11.1 L (12.0-16.0) g/dL ABG Oxyhemoglobin 94.0 % ABG Carboxyhemoglobin 1.6 (0.0-1.6) % ABG Methemoglobin 0.9 % Justus Test A-line O2 Delivery Device Ventilator Oxygen Flow Rate L Sodium 146 (140-148) mmol/L Potassium 4.5 (3.6-5.2) mmol/L Chloride 109 H (100-108) mmol/L Carbon Dioxide 30 (21-32) mmol/L Anion Gap 11.5 (5.0-14.0) mmol/L BUN 39 H (7-18) mg/dL Creatinine 1.1 H (0.6-1.0) mg/dL Est Cr Clr Drug Dosing 42.75 mL/min Estimated GFR (MDRD) 49 L (>60) Glucose 147 H (74-106) mg/dL Calcium 7.5 L (8.5-10.1) mg/dL 03/21/20 03/21/20 Range/Units 04:52 04:52 WBC (4.5-11.0) K/uL RBC (3.30-5.50) M/uL Hgb (12.0-15.0) g/dL Hct (36.0-48.0) % MCV (80-98) fL MCH (27-31) pg MCHC (32-36) % Plt Count (150-400) K/uL Puncture Site A-line ABG pH 7.356 (7.350-7.450) ABG pCO2 58.2 H (35.0-42.0) mmHg ABG pO2 82.4 (75.0-100.0) mmHg ABG HCO3 31.7 H (22.0-26.0) mmol/L ABG Total CO2 29.3 H (21.0-25.0) mmol/L ABG O2 Saturation 95.5 (95.0-98.0) % ABG O2 Content 14.7 L (15.0-23.0) %vol ABG Base Excess 5.4 mm/L ABG Hemoglobin 11.2 L (12.0-16.0) g/dL ABG Oxyhemoglobin 93.2 % ABG Carboxyhemoglobin 1.4 (0.0-1.6) % ABG Methemoglobin 1.0 % Justus Test A-line O2 Delivery Device Ventilator Oxygen Flow Rate L Sodium 146 (140-148) mmol/L Potassium 4.8 (3.6-5.2) mmol/L Chloride 109 H (100-108) mmol/L Carbon Dioxide 31 (21-32) mmol/L Anion Gap 10.8 (5.0-14.0) mmol/L BUN 38 H (7-18) mg/dL Creatinine 1.0 (0.6-1.0) mg/dL Est Cr Clr Drug Dosing 47.03 mL/min Estimated GFR (MDRD) 55 L (>60) Glucose 139 H (74-106) mg/dL Calcium 7.7 L (8.5-10.1) mg/dL Med Orders - Current: Current Medications Acetaminophen (Tylenol) 650 mg PO Q4H PRN PRN Reason: Pain (Mild 1-3)/fever Last Admin: 03/18/20 00:18 Dose: 650 mg Documented by: Albuterol (Proventil Neb Soln) 2.5 mg NEB Q4H PRN PRN Reason: Shortness Of Breath/wheezing Last Admin: 03/18/20 00:38 Dose: 2.5 mg Documented by: Albuterol/Ipratropium (Duoneb 3.0-0.5 Mg/3 Ml) 3 ml NEB QIDRT [facility] Last Admin: 03/21/20 06:57 Dose: 3 ml Documented by: Aspirin (Aspirin) 81 mg PO DAILY [facility] Last Admin: 03/17/20 08:38 Dose: 81 mg Documented by: Atorvastatin Calcium (Lipitor) 40 mg PO Q48H [facility] Last Admin: 03/17/20 08:38 Dose: 40 mg Documented by: Citalopram Hydrobromide (Celexa) 10 mg PO DAILY [facility] Last Admin: 03/17/20 08:38 Dose: 10 mg Documented by: Enoxaparin Sodium (Lovenox) 40 mg SUBCUT Q24H [facility] Last Admin: 03/20/20 18:20 Dose: 40 mg Documented by: Furosemide (Lasix) 20 mg IVPUSH ONETIME ONE Stop: 03/21/20 09:02 Glycopyrrolate (Seebri Neohaler) 15.6 mcg IH BIDRT [facility] Last Admin: 03/21/20 06:57 Dose: Not Given Documented by: Diltiazem HCl 100 mg/ Sodium (Chloride) 100 mls @ 5 mls/hr IV TITRATE [facility]; Protocol Last Admin: 03/21/20 00:23 Dose: 10 mg/hr, 10 mls/hr Documented by: Propofol (Diprivan 100 Ml) 100 mls @ 2.558 mls/hr IV TITRATE [facility]; Protocol Last Admin: 03/20/20 03:49 Dose: 30 mcg/kg/min, 15.35 mls/hr Documented by: Heparin Sodium (Porcine) 5,000 (units/ Sodium Chloride) 501 mls @ 1 mls/hr IV ASDIRECTED [facility] Last Admin: 03/18/20 08:00 Dose: 1 mls/hr Documented by: Ceftazidime 1 gm/ Sodium (Chloride) 50 mls @ 100 mls/hr IV Q8H [facility] Last Admin: 03/21/20 08:35 Dose: 100 mls/hr Documented by: Sodium Chloride (Normal Saline) 1,000 mls @ 25 mls/hr IV ASDIRECTED [facility] Last Admin: 03/20/20 09:31 Dose: 100 mls/hr Documented by: Levofloxacin/Dextrose 750 mg/ (Premix) 150 mls @ 100 mls/hr IV Q24H [facility] Last Admin: 03/20/20 14:10 Dose: 100 mls/hr Documented by: Lactobacillus Rhamnosus (Culturelle) 1 cap PO BID [facility] Last Admin: 03/17/20 21:22 Dose: 1 cap Documented by: Levothyroxine Sodium (Synthroid) 100 mcg PO ACBREAKFAST [facility] Last Admin: 03/17/20 07:50 Dose: 100 mcg Documented by: Lorazepam (Ativan) 0.5 mg PO Q4H PRN PRN Reason: Anxiety Last Admin: 03/17/20 03:25 Dose: 0.5 mg Documented by: Lorazepam (Ativan) 0.5 mg IVPUSH Q4H PRN PRN Reason: Anxiety Last Admin: 03/21/20 03:21 Dose: 0.5 mg Documented by: Methylprednisolone Sodium Succinate (Solu-Medrol) 40 mg IVPUSH Q6H [facility] Last Admin: 03/21/20 08:35 Dose: 40 mg Documented by: Metoprolol Succinate (Toprol Xl) 25 mg PO DAILY [facility] Last Admin: 03/17/20 08:38 Dose: 25 mg Documented by: Ondansetron HCl (Zofran) 4 mg IV Q4H PRN PRN Reason: Nausea/Vomiting Last Admin: 03/18/20 00:18 Dose: 4 mg Documented by: Pantoprazole Sodium (Protonix Iv) 40 mg IVPUSH DAILY [facility] Last Admin: 03/20/20 08:44 Dose: 40 mg Documented by: Polyethylene Glycol (Miralax) 17 gm PO DAILY PRN PRN Reason: Constipation Sodium Chloride (Saline Flush) 10 ml FLUSH ASDIRECTED PRN PRN Reason: Keep Vein Open Discontinued Medications Albuterol/Ipratropium (Duoneb 3.0-0.5 Mg/3 Ml) 3 ml NEB ONETIME ONE Stop: 03/14/20 14:13 Last Admin: 03/14/20 14:30 Dose: 3 ml Documented by: Albuterol/Ipratropium (Duoneb 3.0-0.5 Mg/3 Ml) 3 ml NEB ONETIME ONE Stop: 03/14/20 15:28 Last Admin: 03/14/20 15:38 Dose: 3 ml Documented by: Albuterol/Ipratropium (Duoneb 3.0-0.5 Mg/3 Ml) 3 ml INH ONETIME ONE Stop: 03/14/20 17:01 Last Admin: 03/14/20 20:15 Dose: 3 ml Documented by: Albuterol/Ipratropium (Duoneb 3.0-0.5 Mg/3 Ml) Confirm Administered Dose 3 ml .ROUTE .STK-MED ONE Stop: 03/14/20 20:13 Last Admin: 03/14/20 20:21 Dose: Not Given Documented by: Digoxin (Lanoxin) Confirm Administered Dose 500 mcg .ROUTE .STK-MED ONE Stop: 03/14/20 20:06 Last Admin: 03/14/20 20:21 Dose: Not Given Documented by: Digoxin (Lanoxin) 250 mcg IVPUSH ONETIME ONE Stop: 03/14/20 19:56 Last Admin: 03/14/20 20:16 Dose: 250 mcg Documented by: Diltiazem HCl (Diltiazem) 10 mg IVPUSH ONETIME ONE Stop: 03/16/20 05:41 Last Admin: 03/16/20 05:55 Dose: 10 mg Documented by: Diltiazem HCl (Cardizem) 60 mg PO Q6HR [facility] Last Admin: 03/18/20 05:19 Dose: Not Given Documented by: Enoxaparin Sodium (Lovenox) 40 mg SUBCUT Q24H [facility] Last Admin: 03/17/20 17:41 Dose: 40 mg Documented by: Enoxaparin Sodium (Lovenox) 30 mg SUBCUT Q24H [facility] Last Admin: 03/18/20 17:43 Dose: 30 mg Documented by: Furosemide (Lasix) 20 mg IVPUSH NOW ONE Stop: 03/16/20 09:15 Last Admin: 03/16/20 09:33 Dose: 20 mg Documented by: Furosemide (Lasix) 20 mg IVPUSH ONETIME ONE Stop: 03/17/20 10:16 Last Admin: 03/17/20 11:11 Dose: 20 mg Documented by: Furosemide (Lasix) 20 mg IVPUSH ONETIME ONE Stop: 03/17/20 18:01 Last Admin: 03/17/20 17:41 Dose: 20 mg Documented by: Furosemide (Lasix) 20 mg IVPUSH ONETIME ONE Stop: 03/20/20 10:01 Last Admin: 03/20/20 09:32 Dose: 20 mg Documented by: Heparin Sodium (Porcine) (Heparin Sodium) Confirm Administered Dose 5,000 units .ROUTE .STK-MED ONE Stop: 03/18/20 05:45 Last Admin: 03/18/20 07:17 Dose: Not Given Documented by: Hydrochlorothiazide (Hydrochlorothiazide) 25 mg PO DAILY [facility] Last Admin: 03/17/20 08:38 Dose: 25 mg Documented by: Ceftriaxone Sodium 2 gm/ (Sodium Chloride) 50 mls @ 100 mls/hr IV ONETIME ONE Stop: 03/14/20 16:07 Last Admin: 03/14/20 18:00 Dose: 100 mls/hr Documented by: Ceftriaxone Sodium 1 gm/ (Sodium Chloride) 50 mls @ 100 mls/hr IV Q24H [facility] Last Admin: 03/17/20 16:49 Dose: 100 mls/hr Documented by: Doxycycline Hyclate 100 mg/ (Sodium Chloride) 100 mls @ 100 mls/hr IV Q12H [facility] Last Admin: 03/16/20 17:55 Dose: 100 mls/hr Documented by: Sodium Chloride (Normal Saline) 1,000 mls @ 125 mls/hr IV ASDIRECTED [facility] Last Admin: 03/15/20 04:17 Dose: 125 mls/hr Documented by: Sodium Chloride (Normal Saline) 100 mls @ 3 mls/sec IV ASDIRECTED [facility] Last Admin: 03/14/20 18:16 Dose: 3 mls/sec Documented by: Lactated Ringer's (Ringers, Lactated) 500 mls @ 999 mls/hr IV .BOLUS ONE Stop: 03/14/20 20:30 Last Admin: 03/14/20 20:08 Dose: 999 mls/hr Documented by: Diltiazem HCl 100 mg/ Sodium (Chloride) 100 mls @ 5 mls/hr IV TITRATE [facility]; Protocol Stop: 03/17/20 16:00 Last Admin: 03/17/20 11:12 Dose: 10 mg/hr, 10 mls/hr Documented by: Levofloxacin/Dextrose 750 mg/ (Premix) 150 mls @ 100 mls/hr IV Q24H [facility] Last Admin: 03/16/20 19:24 Dose: 100 mls/hr Documented by: Sodium Chloride (Normal Saline) 1,000 mls @ 500 mls/hr IV ONETIME ONE Stop: 03/17/20 09:44 Last Admin: 03/17/20 07:48 Dose: 500 mls/hr Documented by: Sodium Chloride (Normal Saline) 1,000 mls @ 100 mls/hr IV ASDIRECTED [facility] Last Admin: 03/17/20 09:44 Dose: 100 mls/hr Documented by: Levofloxacin/Dextrose 750 mg/ (Premix) 150 mls @ 100 mls/hr IV Q48H [facility] Last Admin: 03/18/20 17:44 Dose: 100 mls/hr Documented by: Propofol (Diprivan 100 Ml) Confirm Administered Dose 100 mls @ as directed .ROUTE .STK-MED ONE Stop: 03/18/20 06:01 Last Admin: 03/18/20 07:17 Dose: Not Given Documented by: Sodium Chloride (Normal Saline) 500 mls @ 999 mls/hr IV ASDIRECTED [facility] Stop: 03/18/20 07:01 Ceftazidime 1 gm/ Sodium (Chloride) 50 mls @ 100 mls/hr IV Q8HR [facility] Vancomycin HCl 1.5 gm/ Sodium (Chloride) 250 mls @ 167 mls/hr IV ONETIME ONE Stop: 03/18/20 08:59 Last Admin: 03/18/20 08:13 Dose: 167 mls/hr Documented by: Vancomycin HCl 1.25 gm/ Sodium (Chloride) 250 mls @ 167 mls/hr IV Q24H [facility] Last Admin: 03/20/20 08:44 Dose: 167 mls/hr Documented by: Sodium Chloride (Normal Saline) 500 mls @ 999 mls/hr IV ASDIRECTED ONE Stop: 03/18/20 07:45 Last Admin: 03/18/20 07:20 Dose: 999 mls/hr Documented by: Ceftazidime 1 gm/ Sodium (Chloride) 50 mls @ 100 mls/hr IV Q8H [facility] Stop: 03/18/20 14:30 Last Admin: 03/18/20 09:21 Dose: Not Given Documented by: Potassium Chloride 20 meq/Lidocaine HCl 2 ml/ Sodium Chloride 112 mls @ 56 mls/hr IV Q2H [facility] Stop: 03/19/20 13:59 Last Admin: 03/19/20 13:10 Dose: 56 mls/hr Documented by: Potassium Chloride 20 meq/Lidocaine HCl 2 ml/ Sodium Chloride 112 mls @ 56 mls/hr IV Q2H [facility] Stop: 03/20/20 13:59 Last Admin: 03/20/20 14:01 Dose: 56 mls/hr Documented by: Iopamidol (Isovue-370 (76%)) 100 ml IV . DIRECTED [facility] Last Admin: 03/14/20 18:16 Dose: 100 ml Documented by: Methylprednisolone Sodium Succinate (Solu-Medrol) 125 mg IVPUSH ONETIME ONE Stop: 03/14/20 14:14 Last Admin: 03/14/20 14:41 Dose: 125 mg Documented by: Methylprednisolone Sodium Succinate (Solu-Medrol) 40 mg IVPUSH Q6H [facility] Methylprednisolone Sodium Succinate (Solu-Medrol) 40 mg IVPUSH Q6H [facility] Last Admin: 03/18/20 08:15 Dose: 40 mg Documented by: Methylprednisolone Sodium Succinate (Solu-Medrol) 40 mg IVPUSH ONETIME ONE Stop: 03/14/20 19:00 Last Admin: 03/14/20 19:15 Dose: 40 mg Documented by: Pantoprazole Sodium (Protonix) 40 mg PO ACBREAKFAST [facility] Last Admin: 03/17/20 07:51 Dose: 40 mg Documented by: - Exam Quality Assessment: Supplemental Oxygen General: Alert, Cooperative, No Acute Distress HEENT: Pupils Equal Lungs: Normal Respiratory Effort, Decreased Breath Sounds (left lung base), Crackles (both bases) Cardiovascular: Irregular Rhythm, Tachycardia GI/Abdominal Exam: Soft, No Distention Extremities: No Pedal Edema. No: Increased Warmth Skin: Warm, Dry Psy/Mental Status: Alert, Normal Affect Sepsis Event Note - Evaluation Sepsis Screening Result: No Definite Risk - Focused Exam Vital Signs: Vital Signs Temp Pulse Resp BP Pulse Ox 03/21/20 08:56 96 03/21/20 08:00 36.3 C 117 H 20 120/69 96 03/21/20 06:58 109 H 03/21/20 06:00 14 106/63 95 03/21/20 05:00 15 112/66 95 03/21/20 03:00 36.4 C 15 114/69 92 L 03/21/20 02:00 14 106/64 95 03/21/20 00:00 37.0 C 14 107/67 93 L 03/20/20 22:00 11 L 110/65 94 L Date Exam was Performed: 03/21/20 Time Exam was Performed: 13:13 - Problem List Review Problem List Initiated/Reviewed/Updated: Yes - My Orders Last 24 Hours: My Active Orders 03/20/20 09:07 LORazepam [Ativan] 0.5 mg IVPUSH Q4H PRN 03/21/20 05:00 Chest 1V Frontal [CR] DAILY 03/21/20 09:01 Furosemide [Lasix] 20 mg IVPUSH ONETIME ONE 03/21/20 10:15 Insert Burnett Catheter [Insert Urinary Catheter] [OM.PC] Q24H 03/22/20 05:00 Chest 1V Frontal [CR] DAILY BASIC METABOLIC PANEL,BMP [CHEM] Timed BLOOD GAS ARTERIAL [BG] Timed CBC W/O DIFF,HEMOGRAM [HEME] Timed (1) - Plan Plan:: ASSESSMENT AND PLAN ACUTE ON CHRONIC RESPIRATORY FAILURE WITH HYPOXIA AND HYPERCAPNIA-did very well with SIMV overnight. Seems to be improving with some diuresis and I believe she is ready for extubation this morning. -Extubation early afternoon -Supplement oxygen as needed -Repeat blood gases this afternoon -Nebulizer therapy -Solu-Medrol 40 mg IV every 6 hours, transition to prednisone when taking medications -Continue levofloxacin, ceftazidime DIASTOLIC CONGESTIVE HEART FAILURE-multiple valvular abnormalities also. Ejection fraction was low normal. No evidence for volume overload with bilateral effusions. -Furosemide x1 this morning and reassess this afternoon -Restart medical management including beta-devi after extubation BILATERAL PNEUMONIA-complicated by acute on chronic respiratory failure as abo ve. No fevers. -Management as above ATRIAL FIBRILLATION WITH RAPID VENTRICULAR RESPONSE-rate control acceptable at this time with diltiazem infusion. -Continue diltiazem infusion until she is taking oral medications -Restart beta-devi when able COPD EXACERBATION -Management as above ABDOMINAL PAIN-present over the past few months, progressively worse. Will defer work-up until respiratory status improves. -Consider CT scan of abdomen and pelvis -Consider EGD HISTORY OF THORACIC AORTIC ANEURYSM-status post surgical repair with stenting. CT scan shows enlargement compared to previous study. -Outpatient follow-up with her vascular surgeon MAINTENANCE ISSUES -DVT prophylaxis; enoxaparin -GI prophylaxis; PPI -Burnett catheter; not indicated -Nutrition; nothing by mouth until later in the day or tomorrow DISPOSITION-anticipate discharge to home versus subacute rehab after the hospital stay. Oskar Salazar MD
[2020-03-21] MEDS: Pantoprazole 40 MG Vial IVPUSH SCH (09:09)
--- NOTE | 2020-03-21 09:47 | CR ---
CHEST: Portable 03/21/2020 at 3:15 AM CLINICAL HISTORY:Follow-up intubation COMPARISON:03/20/2020 FINDINGS: Heart is enlarged. Pulmonary vascularity is mildly cephalized similar to prior study. There are bilateral pleural effusions similar to prior study. Heart is enlarged. Aortic stent remains in place. Endotracheal tube IS UNCHANGED POSITION SINCE PRIOR STUDY. IMPRESSION: Endotracheal tube unchanged position. Pulmonary vessels are cephalization bilateral effusions persist
[2020-03-21] MEDS: Levothyroxine 100 MCG Tab PO SCH ×2 (11:22→14:44)
[2020-03-21] MEDS: atorvaSTATin 20 MG Tab PO SCH (11:23)
[2020-03-21] MEDS: Citalopram 10 MG Tab PO SCH ×2 (11:23→14:43)
[2020-03-21] MEDS: Lactobacillus Rhamnosus GG (Probiotic) Cap PO SCH ×3 (11:23→20:53)
[2020-03-21] MEDS: Aspirin 81 MG Tab.Chew PO SCH ×2 (11:23→14:44)
[2020-03-21] MEDS: Metoprolol Succinate 25 MG Tab.ER PO SCH ×2 (11:23→14:45)
[2020-03-21] MEDS: Levofloxacin/Dextrose 5%-Water 750 MG in Premix Bag 1 BAG IV SCH (13:54)
[2020-03-21] MEDS: LORazepam 0.5 MG Tab PO PRN ×2 (16:40→20:53)
[2020-03-21] MEDS: Enoxaparin 40 MG/0.4 ML Syringe SUBCUT SCH (17:27)
[2020-03-21] MEDS: Furosemide 20 MG/2 ML VIAL IVPUSH ONE ×2 (18:00→19:22)
[2020-03-21] MEDS: Sodium Chloride 0.9% 1,000 ML IV SCH (20:29)
[2020-03-22] MEDS: LORazepam 0.5 MG Tab PO PRN (01:04)
[2020-03-22] MEDS ORDERED: Furosemide 20 MG/2 ML VIAL IVPUSH ONE ×2 (04:47→09:50)
[2020-03-22] MEDS: Diltiazem 100 MG in Sodium Chloride 0.9% 100 ML IV SCH ×2 (06:11→15:20)
[2020-03-22] MEDS ORDERED: Pantoprazole 40 MG Tab.CR PO SCH (07:30)
[2020-03-22] MEDS: Albuterol/Ipratropium 3.0-0.5 MG/3 ML Neb Soln NEB SCH ×2 (07:44→11:17)
[2020-03-22] MEDS ORDERED: predniSONE 20 MG Tab PO SCH (08:00)
[2020-03-22] MEDS: Aspirin 81 MG Tab.Chew PO SCH (08:16)
[2020-03-22] MEDS: Citalopram 10 MG Tab PO SCH (08:16)
[2020-03-22] MEDS: Levothyroxine 100 MCG Tab PO SCH (08:17)
[2020-03-22] MEDS: Lactobacillus Rhamnosus GG (Probiotic) Cap PO SCH (08:17)
[2020-03-22] MEDS: Metoprolol Succinate 25 MG Tab.ER PO SCH (08:17)
[2020-03-22] MEDS: Glycopyrrolate 15.6 MCG Cap.W.Dev Kit of 6 IH SCH (08:29)
[2020-03-22] MEDS ORDERED: Nitroglycerin/D5W 25 MG/250 ML BOTTLE IV SCH (09:45)
--- NOTE | 2020-03-22 09:45 | PCM.PN ---
- General Info Date of Service: 03/22/20 Subjective Update: The patient has had a decline overnight with decreasing level of mental status and increasing confusion. She did have some increasing oxygen requirements yesterday evening but these resolved. She has oxygenating at an acceptable level on 2 L per nasal cannula at the current time. She says that she feels well and wants to go home. No complaints of shortness of breath or chest pain. She is extremely weak and unable to stand. Her atrial fibrillation has been fairly well controlled. Suboptimal response to attempts at diuresis yesterday. Her PCO2 was 79 this morning and has risen since that time to more than 80. Functional Status: Reports: Pain Controlled, Tolerating Diet - Review of Systems General: Reports: Weakness - Patient Data Vitals - Most Recent: Last Vital Signs Temp 36.8 C 03/22/20 04:00 Pulse 91 03/22/20 08:17 Resp 21 H 03/22/20 08:00 BP 117/58 L 03/22/20 08:17 Pulse Ox 91 L 03/22/20 08:00 Weight - Most Recent: 85.275 kg I&O - Last 24 Hours: Intake & Output 03/21/20 03/22/20 03/22/20 22:59 06:59 14:59 Intake Total 670 975 Output Total 340 185 125 Balance 330 790 -125 Lab Results Last 24 Hours: Laboratory Results - last 24 hr 03/22/20 03/22/20 03/22/20 Range/Units 04:15 04:15 04:15 WBC 9.6 (4.5-11.0) K/uL RBC 3.53 (3.30-5.50) M/uL Hgb 11.7 L (12.0-15.0) g/dL Hct 38.3 (36.0-48.0) % MCV 109 H (80-98) fL MCH 33 H (27-31) pg MCHC 31 L (32-36) % Plt Count 94 L (150-400) K/uL Puncture Site Line ABG pH 7.240 L (7.350-7.450) ABG pCO2 78.1 H* (35.0-42.0) mmHg ABG pO2 84.4 (75.0-100.0) mmHg ABG HCO3 32.3 H (22.0-26.0) mmol/L ABG Total CO2 30.3 H (21.0-25.0) mmol/L ABG O2 Saturation 95.5 (95.0-98.0) % ABG O2 Content 15.9 (15.0-23.0) %vol ABG Base Excess 3.1 mm/L ABG Hemoglobin 12.2 (12.0-16.0) g/dL ABG Oxyhemoglobin 92.6 % ABG Carboxyhemoglobin 2.0 H (0.0-1.6) % ABG Methemoglobin 1.0 % O2 Delivery Device Ventilator Oxygen Flow Rate 2.5 L Sodium 147 (140-148) mmol/L Potassium 4.5 (3.6-5.2) mmol/L Chloride 109 H (100-108) mmol/L Carbon Dioxide 34 H (21-32) mmol/L Anion Gap 8.5 (5.0-14.0) mmol/L BUN 42 H (7-18) mg/dL Creatinine 1.3 H (0.6-1.0) mg/dL Est Cr Clr Drug Dosing 36.18 mL/min Estimated GFR (MDRD) 40 L (>60) Glucose 147 H (74-106) mg/dL Calcium 7.9 L (8.5-10.1) mg/dL Med Orders - Current: Current Medications Acetaminophen (Tylenol) 650 mg PO Q4H PRN PRN Reason: Pain (Mild 1-3)/fever Last Admin: 03/18/20 00:18 Dose: 650 mg Documented by: Albuterol (Proventil Neb Soln) 2.5 mg NEB Q4H PRN PRN Reason: Shortness Of Breath/wheezing Last Admin: 03/18/20 00:38 Dose: 2.5 mg Documented by: Albuterol/Ipratropium (Duoneb 3.0-0.5 Mg/3 Ml) 3 ml NEB QIDRT [facility] Last Admin: 03/22/20 07:44 Dose: 3 ml Documented by: Aspirin (Aspirin) 81 mg PO DAILY [facility] Last Admin: 03/22/20 08:16 Dose: 81 mg Documented by: Atorvastatin Calcium (Lipitor) 40 mg PO Q48H [facility] Last Admin: 03/21/20 11:23 Dose: Not Given Documented by: Citalopram Hydrobromide (Celexa) 10 mg PO DAILY [facility] Last Admin: 03/22/20 08:16 Dose: 10 mg Documented by: Enoxaparin Sodium (Lovenox) 40 mg SUBCUT Q24H [facility] Last Admin: 03/21/20 17:27 Dose: 40 mg Documented by: Furosemide (Lasix) 20 mg IVPUSH ONETIME ONE Stop: 03/22/20 09:40 Glycopyrrolate (Seebri Neohaler) 15.6 mcg IH BIDRT [facility] Last Admin: 03/22/20 08:29 Dose: 1 cap Documented by: Diltiazem HCl 100 mg/ Sodium (Chloride) 100 mls @ 5 mls/hr IV TITRATE [facility]; Protocol Last Admin: 03/22/20 06:11 Dose: 10 mg/hr, 10 mls/hr Documented by: Propofol (Diprivan 100 Ml) 100 mls @ 2.558 mls/hr IV TITRATE [facility]; Protocol Last Admin: 03/20/20 03:49 Dose: 30 mcg/kg/min, 15.35 mls/hr Documented by: Heparin Sodium (Porcine) 5,000 (units/ Sodium Chloride) 501 mls @ 1 mls/hr IV ASDIRECTED [facility] Last Admin: 03/18/20 08:00 Dose: 1 mls/hr Documented by: Ceftazidime 1 gm/ Sodium (Chloride) 50 mls @ 100 mls/hr IV Q8H [facility] Last Admin: 03/22/20 08:14 Dose: 100 mls/hr Documented by: Sodium Chloride (Normal Saline) 1,000 mls @ 25 mls/hr IV ASDIRECTED [facility] Last Admin: 03/21/20 20:29 Dose: 25 mls/hr Documented by: Levofloxacin/Dextrose 750 mg/ (Premix) 150 mls @ 100 mls/hr IV Q24H [facility] Last Admin: 03/21/20 13:54 Dose: 100 mls/hr Documented by: Nitroglycerin/Dextrose (Nitroglycerin 25 Mg/D5w 250 Ml) 25 mg in 250 mls @ 3 mls/hr IV TITRATE [facility]; Protocol Furosemide 100 mg/ Sodium (Chloride) 100 mls @ 8 mls/hr IV TITRATE [facility]; Protocol Lactobacillus Rhamnosus (Culturelle) 1 cap PO BID [facility] Last Admin: 03/22/20 08:17 Dose: 1 cap Documented by: Levothyroxine Sodium (Synthroid) 100 mcg PO ACBREAKFAST [facility] Last Admin: 03/22/20 08:17 Dose: 100 mcg Documented by: Lorazepam (Ativan) 0.5 mg PO Q4H PRN PRN Reason: Anxiety Last Admin: 03/22/20 01:04 Dose: 0.5 mg Documented by: Lorazepam (Ativan) 0.5 mg IVPUSH Q4H PRN PRN Reason: Anxiety Last Admin: 03/21/20 03:21 Dose: 0.5 mg Documented by: Metoprolol Succinate (Toprol Xl) 25 mg PO DAILY [facility] Last Admin: 03/22/20 08:17 Dose: 25 mg Documented by: Ondansetron HCl (Zofran) 4 mg IV Q4H PRN PRN Reason: Nausea/Vomiting Last Admin: 03/18/20 00:18 Dose: 4 mg Documented by: Pantoprazole Sodium (Protonix) 40 mg PO DAILY@0730 [facility] Last Admin: 03/22/20 08:17 Dose: 40 mg Documented by: Polyethylene Glycol (Miralax) 17 gm PO DAILY PRN PRN Reason: Constipation Prednisone (Prednisone) 20 mg PO WITHBREAKFAST [facility] Last Admin: 03/22/20 08:16 Dose: 20 mg Documented by: Sodium Chloride (Saline Flush) 10 ml FLUSH ASDIRECTED PRN PRN Reason: Keep Vein Open Discontinued Medications Albuterol/Ipratropium (Duoneb 3.0-0.5 Mg/3 Ml) 3 ml NEB ONETIME ONE Stop: 03/14/20 14:13 Last Admin: 03/14/20 14:30 Dose: 3 ml Documented by: Albuterol/Ipratropium (Duoneb 3.0-0.5 Mg/3 Ml) 3 ml NEB ONETIME ONE Stop: 03/14/20 15:28 Last Admin: 03/14/20 15:38 Dose: 3 ml Documented by: Albuterol/Ipratropium (Duoneb 3.0-0.5 Mg/3 Ml) 3 ml INH ONETIME ONE Stop: 03/14/20 17:01 Last Admin: 03/14/20 20:15 Dose: 3 ml Documented by: Albuterol/Ipratropium (Duoneb 3.0-0.5 Mg/3 Ml) Confirm Administered Dose 3 ml .ROUTE .STK-MED ONE Stop: 03/14/20 20:13 Last Admin: 03/14/20 20:21 Dose: Not Given Documented by: Digoxin (Lanoxin) Confirm Administered Dose 500 mcg .ROUTE .STK-MED ONE Stop: 03/14/20 20:06 Last Admin: 03/14/20 20:21 Dose: Not Given Documented by: Digoxin (Lanoxin) 250 mcg IVPUSH ONETIME ONE Stop: 03/14/20 19:56 Last Admin: 03/14/20 20:16 Dose: 250 mcg Documented by: Diltiazem HCl (Diltiazem) 10 mg IVPUSH ONETIME ONE Stop: 03/16/20 05:41 Last Admin: 03/16/20 05:55 Dose: 10 mg Documented by: Diltiazem HCl (Cardizem) 60 mg PO Q6HR [facility] Last Admin: 03/18/20 05:19 Dose: Not Given Documented by: Enoxaparin Sodium (Lovenox) 40 mg SUBCUT Q24H [facility] Last Admin: 03/17/20 17:41 Dose: 40 mg Documented by: Enoxaparin Sodium (Lovenox) 30 mg SUBCUT Q24H [facility] Last Admin: 03/18/20 17:43 Dose: 30 mg Documented by: Furosemide (Lasix) 20 mg IVPUSH NOW ONE Stop: 03/16/20 09:15 Last Admin: 03/16/20 09:33 Dose: 20 mg Documented by: Furosemide (Lasix) 20 mg IVPUSH ONETIME ONE Stop: 03/17/20 10:16 Last Admin: 03/17/20 11:11 Dose: 20 mg Documented by: Furosemide (Lasix) 20 mg IVPUSH ONETIME ONE Stop: 03/17/20 18:01 Last Admin: 03/17/20 17:41 Dose: 20 mg Documented by: Furosemide (Lasix) 20 mg IVPUSH ONETIME ONE Stop: 03/20/20 10:01 Last Admin: 03/20/20 09:32 Dose: 20 mg Documented by: Furosemide (Lasix) 20 mg IVPUSH ONETIME ONE Stop: 03/21/20 09:02 Last Admin: 03/21/20 09:18 Dose: 20 mg Documented by: Furosemide (Lasix) 20 mg IVPUSH ONETIME ONE Stop: 03/21/20 20:01 Last Admin: 03/21/20 19:22 Dose: Not Given Documented by: Furosemide (Lasix) 20 mg IVPUSH ONETIME ONE Stop: 03/22/20 04:48 Last Admin: 03/22/20 05:05 Dose: 20 mg Documented by: Heparin Sodium (Porcine) (Heparin Sodium) Confirm Administered Dose 5,000 units .ROUTE .STK-MED ONE Stop: 03/18/20 05:45 Last Admin: 03/18/20 07:17 Dose: Not Given Documented by: Hydrochlorothiazide (Hydrochlorothiazide) 25 mg PO DAILY [facility] Last Admin: 03/17/20 08:38 Dose: 25 mg Documented by: Ceftriaxone Sodium 2 gm/ (Sodium Chloride) 50 mls @ 100 mls/hr IV ONETIME ONE Stop: 03/14/20 16:07 Last Admin: 03/14/20 18:00 Dose: 100 mls/hr Documented by: Ceftriaxone Sodium 1 gm/ (Sodium Chloride) 50 mls @ 100 mls/hr IV Q24H [facility] Last Admin: 03/17/20 16:49 Dose: 100 mls/hr Documented by: Doxycycline Hyclate 100 mg/ (Sodium Chloride) 100 mls @ 100 mls/hr IV Q12H [facility] Last Admin: 03/16/20 17:55 Dose: 100 mls/hr Documented by: Sodium Chloride (Normal Saline) 1,000 mls @ 125 mls/hr IV ASDIRECTED [facility] Last Admin: 03/15/20 04:17 Dose: 125 mls/hr Documented by: Sodium Chloride (Normal Saline) 100 mls @ 3 mls/sec IV ASDIRECTED [facility] Last Admin: 03/14/20 18:16 Dose: 3 mls/sec Documented by: Lactated Ringer's (Ringers, Lactated) 500 mls @ 999 mls/hr IV .BOLUS ONE Stop: 03/14/20 20:30 Last Admin: 03/14/20 20:08 Dose: 999 mls/hr Documented by: Diltiazem HCl 100 mg/ Sodium (Chloride) 100 mls @ 5 mls/hr IV TITRATE [facility]; Protocol Stop: 03/17/20 16:00 Last Admin: 03/17/20 11:12 Dose: 10 mg/hr, 10 mls/hr Documented by: Levofloxacin/Dextrose 750 mg/ (Premix) 150 mls @ 100 mls/hr IV Q24H [facility] Last Admin: 03/16/20 19:24 Dose: 100 mls/hr Documented by: Sodium Chloride (Normal Saline) 1,000 mls @ 500 mls/hr IV ONETIME ONE Stop: 03/17/20 09:44 Last Admin: 03/17/20 07:48 Dose: 500 mls/hr Documented by: Sodium Chloride (Normal Saline) 1,000 mls @ 100 mls/hr IV ASDIRECTED [facility] Last Admin: 03/17/20 09:44 Dose: 100 mls/hr Documented by: Levofloxacin/Dextrose 750 mg/ (Premix) 150 mls @ 100 mls/hr IV Q48H [facility] Last Admin: 03/18/20 17:44 Dose: 100 mls/hr Documented by: Propofol (Diprivan 100 Ml) Confirm Administered Dose 100 mls @ as directed .ROUTE .[facility]-MED ONE Stop: 03/18/20 06:01 Last Admin: 03/18/20 07:17 Dose: Not Given Documented by: Sodium Chloride (Normal Saline) 500 mls @ 999 mls/hr IV ASDIRECTED [facility] Stop: 03/18/20 07:01 Ceftazidime 1 gm/ Sodium (Chloride) 50 mls @ 100 mls/hr IV Q8HR [facility] Vancomycin HCl 1.5 gm/ Sodium (Chloride) 250 mls @ 167 mls/hr IV ONETIME ONE Stop: 03/18/20 08:59 Last Admin: 03/18/20 08:13 Dose: 167 mls/hr Documented by: Vancomycin HCl 1.25 gm/ Sodium (Chloride) 250 mls @ 167 mls/hr IV Q24H [facility] Last Admin: 03/20/20 08:44 Dose: 167 mls/hr Documented by: Sodium Chloride (Normal Saline) 500 mls @ 999 mls/hr IV ASDIRECTED ONE Stop: 03/18/20 07:45 Last Admin: 03/18/20 07:20 Dose: 999 mls/hr Documented by: Ceftazidime 1 gm/ Sodium (Chloride) 50 mls @ 100 mls/hr IV Q8H [facility] Stop: 03/18/20 14:30 Last Admin: 03/18/20 09:21 Dose: Not Given Documented by: Potassium Chloride 20 meq/Lidocaine HCl 2 ml/ Sodium Chloride 112 mls @ 56 mls/hr IV Q2H [facility] Stop: 03/19/20 13:59 Last Admin: 03/19/20 13:10 Dose: 56 mls/hr Documented by: Potassium Chloride 20 meq/Lidocaine HCl 2 ml/ Sodium Chloride 112 mls @ 56 mls/hr IV Q2H [facility] Stop: 03/20/20 13:59 Last Admin: 03/20/20 14:01 Dose: 56 mls/hr Documented by: Iopamidol (Isovue-370 (76%)) 100 ml IV . DIRECTED [facility] Last Admin: 03/14/20 18:16 Dose: 100 ml Documented by: Methylprednisolone Sodium Succinate (Solu-Medrol) 125 mg IVPUSH ONETIME ONE Stop: 03/14/20 14:14 Last Admin: 03/14/20 14:41 Dose: 125 mg Documented by: Methylprednisolone Sodium Succinate (Solu-Medrol) 40 mg IVPUSH Q6H [facility] Methylprednisolone Sodium Succinate (Solu-Medrol) 40 mg IVPUSH Q6H [facility] Last Admin: 03/18/20 08:15 Dose: 40 mg Documented by: Methylprednisolone Sodium Succinate (Solu-Medrol) 40 mg IVPUSH ONETIME ONE Stop: 03/14/20 19:00 Last Admin: 03/14/20 19:15 Dose: 40 mg Documented by: Methylprednisolone Sodium Succinate (Solu-Medrol) 40 mg IVPUSH Q6H [facility] Stop: 03/21/20 23:59 Last Admin: 03/21/20 20:53 Dose: 40 mg Documented by: Pantoprazole Sodium (Protonix) 40 mg PO ACBREAKFAST [facility] Last Admin: 03/17/20 07:51 Dose: 40 mg Documented by: Pantoprazole Sodium (Protonix Iv) 40 mg IVPUSH DAILY [facility] Last Admin: 03/21/20 09:09 Dose: 40 mg Documented by: - Exam Quality Assessment: Supplemental Oxygen General: Alert, Oriented, Cooperative, No Acute Distress Neck: Supple, JVD Lungs: Normal Respiratory Effort, Decreased Breath Sounds (right lung base), Crackles (both bases) Cardiovascular: Irregular Rhythm, Tachycardia, Murmurs GI/Abdominal Exam: Soft, No Distention Extremities: No Pedal Edema. No: Increased Warmth Skin: Warm, Dry Psy/Mental Status: Alert, Normal Affect Sepsis Event Note - Evaluation Sepsis Screening Result: No Definite Risk - Focused Exam Vital Signs: Vital Signs Temp Pulse Pulse Resp BP BP Pulse Ox 03/22/20 08:17 91 117/58 L 03/22/20 08:00 110 H 21 H 111/68 91 L 03/22/20 07:47 108 H 03/22/20 06:00 98 18 112/54 L 91 L 03/22/20 04:58 91 L 03/22/20 04:00 36.8 C 103 H 18 110/52 L 92 L 03/22/20 02:00 108 H 20 103/63 93 L 03/22/20 00:00 36.9 C 111 H 19 100/56 L 93 L 03/21/20 22:00 111 H 19 105/57 L 93 L Pulse Ox 03/22/20 08:17 03/22/20 08:00 03/22/20 07:47 91 L 03/22/20 06:00 03/22/20 04:58 03/22/20 04:00 03/22/20 02:00 03/22/20 00:00 03/21/20 22:00 Date Exam was Performed: 03/22/20 Time Exam was Performed: 12:29 - Problem List Review Problem List Initiated/Reviewed/Updated: Yes - My Orders Last 24 Hours: My Active Orders 03/21/20 Dinner Clear Liquid Diet [DIET] 03/22/20 05:00 Chest 1V Frontal [CR] DAILY 03/22/20 07:30 Pantoprazole [ProTONIX] 40 mg PO DAILY@0730 03/22/20 08:00 predniSONE 20 mg PO WITHBREAKFAST 03/22/20 09:35 Chest wo Cont [CT] Routine BLOOD GAS ARTERIAL [BG] Urgent 03/22/20 09:39 Furosemide [Lasix] 20 mg IVPUSH ONETIME ONE 03/22/20 09:45 Furosemide [Lasix] 100 mg Sodium Chloride 0.9% [Normal Saline] 90 ml IV TITRATE Nitroglycerin/D5W [Nitroglycerin 25 MG/D5W 250 ML] 25 mg in 250 ml IV TITRATE 03/22/20 10:15 Insert Burnett Catheter [Insert Urinary Catheter] [OM.PC] Q24H 03/22/20 14:00 BASIC METABOLIC PANEL,BMP [CHEM] Timed BLOOD GAS ARTERIAL [BG] Timed 03/23/20 05:00 BASIC METABOLIC PANEL,BMP [CHEM] Timed BLOOD GAS ARTERIAL [BG] Timed CBC W/O DIFF,HEMOGRAM [HEME] Timed (1) - Plan Plan:: ASSESSMENT AND PLAN ACUTE ON CHRONIC RESPIRATORY FAILURE WITH HYPOXIA AND HYPERCAPNIA-multifactorial with COPD, CHF and weakness. Initially did well after extubation but has fatigued overnight. PCO2 is rising and declining mental status. -Diuresis as below -Supplement oxygen as needed -Repeat blood gases later this morning -Nebulizer therapy -Solu-Medrol 40 mg IV every 6 hours, transition to prednisone when taking medications -Continue levofloxacin, ceftazidime DIASTOLIC CONGESTIVE HEART FAILURE-multiple valvular abnormalities (AI,MR,TR). Ejection fraction was low normal. No evidence for volume overload with bilateral effusions. -Low-dose nitroglycerin to see if we can offload some of the pulmonary congestion -furosemide continuous infusion -Rate control with the atrial fibrillation BILATERAL PNEUMONIA-initially suspicion for infection and she has been on a ntibiotics. CRP was normal and suspicion for infection is not impressive at this time. -Management as above ATRIAL FIBRILLATION WITH RAPID VENTRICULAR RESPONSE-rate control acceptable at this time with diltiazem infusion. -Continue diltiazem infusion until she is taking oral medications -Restart beta-devi when able COPD EXACERBATION -Management as above ABDOMINAL PAIN-present over the past few months, progressively worse. Will defer work-up until respiratory status improves. -Consider CT scan of abdomen and pelvis -Consider EGD HISTORY OF THORACIC AORTIC ANEURYSM-status post surgical repair with stenting. CT scan shows enlargement compared to previous study. -Outpatient follow-up with her vascular surgeon MAINTENANCE ISSUES -DVT prophylaxis; enoxaparin -GI prophylaxis; PPI -Burnett catheter; not indicated -Nutrition; nothing by mouth DISPOSITION-anticipate discharge to home versus subacute rehab after the hospital stay. She may need transfer to a higher level of care if condition does not improve in the near future. Oskar Salazar MD
[2020-03-22] MEDS ORDERED: Furosemide 100 MG in Sodium Chloride 0.9% 90 ML IV SCH (10:00)
--- NOTE | 2020-03-22 10:53 | CRLCT ---
INDICATION: Worsening hypoxia. COMPARISON: Plain film [address] chest 14 March 2020. TECHNIQUE: Noncontrast images. FINDINGS: Moderate sized right and small left dependent pleural effusions. Both are increased from comparison CT. Patchy and dysmorphic mineralization at the periphery of the ascending aorta and intimal calcification likely chronic ascending aortic repair. Long segment the aortic endo stent from the arch to the inferior field of view and at the hiatus. No mediastinal hemorrhage. Sternotomy. Near complete airspace opacity with air bronchograms right lower lobe. Minor dependent atelectasis in both upper lobes and left lower lobe. Pulmonary vascularity appears normal. Sternotomy. High attenuation collapsed bilateral breast implants. Diffuse soft tissue edema. Perihepatic ascites. IMPRESSION: 1. Diffuse 3rd spacing with new ascites and increasing pleural effusions and soft tissue edema. No pulmonary edema appreciated. 2. Presumed passive near complete atelectasis of the right lower lobe. Aspiration or pneumonia cannot be excluded. 3. Unchanged appearance allowing for differences in technique in the ascending aortic graft and long segment thoracic and upper abdomen and a stent. Please note that all CT scans at this facility use dose modulation, iterative reconstruction, and/or weight-based dosing when appropriate to reduce radiation dose to as low as reasonably achievable. Dictated by Duke Arnett MD @ Mar 22 2020 10:52AM Signed by Dr. Duke Arnett @ Mar 22 2020 10:52AM
[2020-03-22] MEDS ORDERED: Propofol 200 MG/20 ML SDV ONE (12:02)
[2020-03-22] MEDS: LORazepam 2 MG/ML SDV IVPUSH PRN (12:26)
--- NOTE | 2020-03-22 12:33 | PCM.DCSUM1 ---
Discharge Summary - Hospital Course Brief History: 70-year-old female with history of oxygen dependent severe COPD and previous thoracic aneurysm repairs who presented with progressive shortness of breath and weakness. She was admitted for management of a presumed COPD exacerbation thought secondary to pneumonia complicated by acute on chronic hypercapnic respiratory failure. Diagnosis: Stroke: No - Discharge Data Discharge Date: 03/22/20 Discharge Disposition: DC/Tfer to [facility] 02 Condition: Critical - Referral to Home Health Primary Care Physician: PCP None - Patient Summary/Data Hospital Course: Angie presented to the emergency room with subacute shortness of breath and weakness. Work-up in the emergency room revealed a normal white blood cell count and normal kidney function with acceptable electrolytes. Her PCO2 was elevated at more than 80. Chest x-ray showed a possible lower lung infiltrate though it was not impressive. A CT scan of the chest was obtained in the emergency room. There is no evidence for pulmonary embolism. The scan did not document any impressive infiltrates. The scan did mention a very large descending aortic aneurysm that measured more than 9 cm in diameter and had previously been 7.5 cm. She was admitted to the hospital for management of acute on chronic respiratory failure with hypercapnia and concern for underlying infection. By the morning after admission symptomatically she reported she was feeling better. She continued to have a significant elevation of her PCO2. As the day progressed and into the next day her respiratory status did decline some. She was also in atrial fibrillation with a heart rate in the low 100s. PCO2 stephy even further. We did attempt some noninvasive positive pressure ventilation but she did not tolerate this very well. Gentle diuresis was attempted on the third day in the hospital. Her COVID test came back negative. White count remained normal and she was not having any fevers. On the fourth day of the hospital stay, March 17 an echocardiogram was obtained. This showed a low normal ejection fraction as well as moderately severe aortic insufficiency, moderately severe mitral regurgitation and severe tricuspid regurgitation. Her right-sided pressures were elevated. When compared to previous echocardiograms the valvular insufficiencies had worsened. I attempted a more aggressive diuresis with IV furosemide. We had a moderate response to the diuresis with minimal improvement in her respiratory symptoms and status but did see a significant rise in her creatinine up to 1.7. Overnight Tuesday night and into Tuesday she became more lethargic and repeat blood gases showed a significant elevation of her PCO2 at more than 200 with a pH of less than 7 despite being on noninvasive ventilation overnight. She was urgently intubated on 18 March. She was hypotensive following intubation and did receive some IV fluids. Her respiratory status stabilized fairly quickly after intubation and her PCO2 and pH normalized fairly quickly. On Tuesday we did perform a weaning trial but she did not do very well with the CPAP trial. She did have a short trial on SIMV. She rested fairly well on Tuesday night. she did very well with SIMV and spent most of the day in this mode. She was requiring fairly minimal ventilator support at this time and FiO2 is down to 35%. Blood gases continue to look very acceptable. She was showing evidence of progressive volume overload so we again attempted diuresis with bolus doses of furosemide at 20 mg each dose. She continued on the diltiazem infusion for her atrial fibrillation which was fairly well controlled with heart rates around 100. On Tuesday she had an excellent CPAP trial and we moved to extubation later in the morning. Initially she did quite well following extubation. She was alert she was interactive she was communicative and oriented. She had a fairly good day after extubation but unfortunately later in the evening started to tire out and had some oxygen desaturations. End-tidal CO2 monitoring showed that her CO2 was climbing up to around 60 and then up to 70. Overnight we did offered noninvasive ventilation and the patient refused. By Tuesday which was the day of transfer PCO2 has risen to more than 80. The patient is now confused. I attempted multiple times to talk to her about CODE STATUS and her wishes about transfer to a higher level of care versus potentially transition to comfort cares. She kept telling me she wanted to think about it and she would get back to me tomorrow morning. I reiterated that this was a very serious situation and we did not have till tomorrow morning with concern that she may of something was not done in the near future. I did not feel that she was of sound mind to make decisions because of her elevated PCO2. I talked to her son Nathan who felt that it would be in agreement with her wishes to have intubation and mechanical ventilation and a transfer to a higher level of care. She was reintubated without any significant difficulties. She is fairly stable now that she is intubated. She is alert and is able to follow commands. I did get a repeat CT scan that showed progression of her bilateral pleural effusions with the right side being greater than the left side. At this point I feel she would benefit from a higher level of care with cardiology and pulmonary/critical care. Potentially nephrology and cardiothoracic surgery may need to get involved. Her son was in agreement with transfer to a higher level of care. The plan is for transfer to [facility]. I did talk to Dr. Cortez about the case and he graciously accepted her care and transfer. The patient has acute on chronic hypercapnic respiratory failure which is likely multifactorial with her severe COPD, congestive heart failure, multiple valvular abnormalities and weakness. She would benefit from subspecialty evaluation and a higher level of care. She will be transferred by ambulance with the benefits of transfer outweighing the risks at this time. - Patient Instructions Other/Special Instructions: transfer to [facility] - Dr Cortez accepting. Dx: acute on chronic resp failure, CHF due to valvular disease, severe COPD, large thoracic aneurysm - Discharge Plan *PRESCRIPTION DRUG MONITORING PROGRAM REVIEWED*: Not Applicable *COPY OF PRESCRIPTION DRUG MONITORING REPORT IN PATIENT MARNIE: Not Applicable Home Medications: Home Meds Ascorbic Acid [Vitamin C] 1,000 mg PO DAILY 09/10/13 [History] Aspirin [Moreno Chewable Aspirin] 1 tab PO DAILY 09/10/13 [History] Cholecalciferol (Vitamin D3) [Vitamin D-3] 2,000 unit PO DAILY 09/10/13 [History] Multivitamin with Minerals [Multiple Vitamin] 1 tab PO DAILY 09/10/13 [History] Tiotropium [Spiriva Handihaler] 1 cap INH DAILY 09/10/13 [History] Levothyroxine Sodium [Synthroid] 100 mcg PO ACBREAKFAST 02/25/17 [History] Metoprolol Succinate [Toprol XL] 25 mg PO DAILY 02/25/17 [History] hydroCHLOROthiazide [Hydrochlorothiazide] 25 mg PO DAILY 02/25/17 [History] Calcium/Magnesium/Zinc [Wrjbskr-Bshjouddw-Qdax Tab] 1 each PO DAILY 07/04/18 [History] Citalopram Hydrobromide [Celexa] 10 mg PO DAILY 07/04/18 [History] atorvaSTATin [Lipitor] 40 mg PO Q48H 07/04/18 [History] Omeprazole 20 mg PO DAILY 06/12/20 [History] Oxygen Therapy Mode: Mechanical Ventilation Forms: ED Department Discharge Referrals: PCP,None [Primary Care Provider] - - Discharge Summary/Plan Comment DC Time >30 min.: Yes (120-transfer to acute hospital ) - Patient Data Vitals - Most Recent: Last Vital Signs Temp 36.4 C 03/22/20 12:11 Pulse 95 03/22/20 12:11 Resp 20 03/22/20 12:11 BP 108/59 L 03/22/20 12:11 Pulse Ox 99 03/22/20 12:11 Weight - Most Recent: 85.275 kg I&O - Last 24 hours: Intake & Output 03/21/20 03/22/20 03/22/20 22:59 06:59 14:59 Intake Total 670 975 Output Total 340 185 150 Balance 330 790 -150 Lab Results - Last 24 hrs: Laboratory Results - last 24 hr 03/22/20 03/22/20 03/22/20 Range/Units 04:15 04:15 04:15 WBC 9.6 (4.5-11.0) K/uL RBC 3.53 (3.30-5.50) M/uL Hgb 11.7 L (12.0-15.0) g/dL Hct 38.3 (36.0-48.0) % MCV 109 H (80-98) fL MCH 33 H (27-31) pg MCHC 31 L (32-36) % Plt Count 94 L (150-400) K/uL Puncture Site Line ABG pH 7.240 L (7.350-7.450) ABG pCO2 78.1 H* (35.0-42.0) mmHg ABG pO2 84.4 (75.0-100.0) mmHg ABG HCO3 32.3 H (22.0-26.0) mmol/L ABG Total CO2 30.3 H (21.0-25.0) mmol/L ABG O2 Saturation 95.5 (95.0-98.0) % ABG O2 Content 15.9 (15.0-23.0) %vol ABG Base Excess 3.1 mm/L ABG Hemoglobin 12.2 (12.0-16.0) g/dL ABG Oxyhemoglobin 92.6 % ABG Carboxyhemoglobin 2.0 H (0.0-1.6) % ABG Methemoglobin 1.0 % Justus Test O2 Delivery Device Ventilator Oxygen Flow Rate 2.5 L Sodium 147 (140-148) mmol/L Potassium 4.5 (3.6-5.2) mmol/L Chloride 109 H (100-108) mmol/L Carbon Dioxide 34 H (21-32) mmol/L Anion Gap 8.5 (5.0-14.0) mmol/L BUN 42 H (7-18) mg/dL Creatinine 1.3 H (0.6-1.0) mg/dL Est Cr Clr Drug Dosing 36.18 mL/min Estimated GFR (MDRD) 40 L (>60) Glucose 147 H (74-106) mg/dL Calcium 7.9 L (8.5-10.1) mg/dL 03/22/20 Range/Units 09:35 WBC (4.5-11.0) K/uL RBC (3.30-5.50) M/uL Hgb (12.0-15.0) g/dL Hct (36.0-48.0) % MCV (80-98) fL MCH (27-31) pg MCHC (32-36) % Plt Count (150-400) K/uL Puncture Site A-line ABG pH 7.230 L (7.350-7.450) ABG pCO2 81.0 H* (35.0-42.0) mmHg ABG pO2 66.1 L (75.0-100.0) mmHg ABG HCO3 32.7 H (22.0-26.0) mmol/L ABG Total CO2 30.9 H (21.0-25.0) mmol/L ABG O2 Saturation 90.8 L (95.0-98.0) % ABG O2 Content 14.9 L (15.0-23.0) %vol ABG Base Excess 3.3 mm/L ABG Hemoglobin 11.9 L (12.0-16.0) g/dL ABG Oxyhemoglobin 88.5 % ABG Carboxyhemoglobin 1.6 (0.0-1.6) % ABG Methemoglobin 0.9 % Justus Test A-line O2 Delivery Device Nasal cannula Oxygen Flow Rate 2.0 L Sodium (140-148) mmol/L Potassium (3.6-5.2) mmol/L Chloride (100-108) mmol/L Carbon Dioxide (21-32) mmol/L Anion Gap (5.0-14.0) mmol/L BUN (7-18) mg/dL Creatinine (0.6-1.0) mg/dL Est Cr Clr Drug Dosing mL/min Estimated GFR (MDRD) (>60) Glucose (74-106) mg/dL Calcium (8.5-10.1) mg/dL Med Orders - Current: Current Medications Acetaminophen (Tylenol) 650 mg PO Q4H PRN PRN Reason: Pain (Mild 1-3)/fever Last Admin: 03/18/20 00:18 Dose: 650 mg Documented by: Albuterol (Proventil Neb Soln) 2.5 mg NEB Q4H PRN PRN Reason: Shortness Of Breath/wheezing Last Admin: 03/18/20 00:38 Dose: 2.5 mg Documented by: Albuterol/Ipratropium (Duoneb 3.0-0.5 Mg/3 Ml) 3 ml NEB QIDRT [facility] Last Admin: 03/22/20 11:17 Dose: 3 ml Documented by: Aspirin (Aspirin) 81 mg PO DAILY [facility] Last Admin: 03/22/20 08:16 Dose: 81 mg Documented by: Atorvastatin Calcium (Lipitor) 40 mg PO Q48H [facility] Last Admin: 03/21/20 11:23 Dose: Not Given Documented by: Citalopram Hydrobromide (Celexa) 10 mg PO DAILY [facility] Last Admin: 03/22/20 08:16 Dose: 10 mg Documented by: Enoxaparin Sodium (Lovenox) 40 mg SUBCUT Q24H [facility] Last Admin: 03/21/20 17:27 Dose: 40 mg Documented by: Glycopyrrolate (Seebri Neohaler) 15.6 mcg IH BIDRT [facility] Last Admin: 03/22/20 08:29 Dose: 1 cap Documented by: Diltiazem HCl 100 mg/ Sodium (Chloride) 100 mls @ 5 mls/hr IV TITRATE [facility]; Protocol Last Admin: 03/22/20 06:11 Dose: 10 mg/hr, 10 mls/hr Documented by: Propofol (Diprivan 100 Ml) 100 mls @ 2.558 mls/hr IV TITRATE [facility]; Protocol Last Admin: 03/20/20 03:49 Dose: 30 mcg/kg/min, 15.35 mls/hr Documented by: Heparin Sodium (Porcine) 5,000 (units/ Sodium Chloride) 501 mls @ 1 mls/hr IV ASDIRECTED [facility] Last Admin: 03/18/20 08:00 Dose: 1 mls/hr Documented by: Sodium Chloride (Normal Saline) 1,000 mls @ 25 mls/hr IV ASDIRECTED [facility] Last Admin: 03/21/20 20:29 Dose: 25 mls/hr Documented by: Nitroglycerin/Dextrose (Nitroglycerin 25 Mg/D5w 250 Ml) 25 mg in 250 mls @ 3 mls/hr IV TITRATE [facility]; Protocol Last Admin: 03/22/20 10:44 Dose: 5 mcg/min, 3 mls/hr Documented by: Furosemide 100 mg/ Sodium (Chloride) 100 mls @ 8 mls/hr IV TITRATE [facility]; Protocol Last Admin: 03/22/20 10:45 Dose: 8 mg/hr, 8 mls/hr Documented by: Lactobacillus Rhamnosus (Culturelle) 1 cap PO BID [facility] Last Admin: 03/22/20 08:17 Dose: 1 cap Documented by: Levothyroxine Sodium (Synthroid) 100 mcg PO ACBREAKFAST [facility] Last Admin: 03/22/20 08:17 Dose: 100 mcg Documented by: Lorazepam (Ativan) 0.5 mg PO Q4H PRN PRN Reason: Anxiety Last Admin: 03/22/20 01:04 Dose: 0.5 mg Documented by: Lorazepam (Ativan) 0.5 mg IVPUSH Q4H PRN PRN Reason: Anxiety Last Admin: 03/22/20 12:26 Dose: 0.5 mg Documented by: Metoprolol Succinate (Toprol Xl) 25 mg PO DAILY [facility] Last Admin: 03/22/20 08:17 Dose: 25 mg Documented by: Ondansetron HCl (Zofran) 4 mg IV Q4H PRN PRN Reason: Nausea/Vomiting Last Admin: 03/18/20 00:18 Dose: 4 mg Documented by: Pantoprazole Sodium (Protonix) 40 mg PO DAILY@0730 [facility] Last Admin: 03/22/20 08:17 Dose: 40 mg Documented by: Polyethylene Glycol (Miralax) 17 gm PO DAILY PRN PRN Reason: Constipation Prednisone (Prednisone) 20 mg PO WITHBREAKFAST [facility] Last Admin: 03/22/20 08:16 Dose: 20 mg Documented by: Sodium Chloride (Saline Flush) 10 ml FLUSH ASDIRECTED PRN PRN Reason: Keep Vein Open Discontinued Medications Albuterol/Ipratropium (Duoneb 3.0-0.5 Mg/3 Ml) 3 ml NEB ONETIME ONE Stop: 03/14/20 14:13 Last Admin: 03/14/20 14:30 Dose: 3 ml Documented by: Albuterol/Ipratropium (Duoneb 3.0-0.5 Mg/3 Ml) 3 ml NEB ONETIME ONE Stop: 03/14/20 15:28 Last Admin: 03/14/20 15:38 Dose: 3 ml Documented by: Albuterol/Ipratropium (Duoneb 3.0-0.5 Mg/3 Ml) 3 ml INH ONETIME ONE Stop: 03/14/20 17:01 Last Admin: 03/14/20 20:15 Dose: 3 ml Documented by: Albuterol/Ipratropium (Duoneb 3.0-0.5 Mg/3 Ml) Confirm Administered Dose 3 ml .ROUTE .STK-MED ONE Stop: 03/14/20 20:13 Last Admin: 03/14/20 20:21 Dose: Not Given Documented by: Digoxin (Lanoxin) Confirm Administered Dose 500 mcg .ROUTE .STK-MED ONE Stop: 03/14/20 20:06 Last Admin: 03/14/20 20:21 Dose: Not Given Documented by: Digoxin (Lanoxin) 250 mcg IVPUSH ONETIME ONE Stop: 03/14/20 19:56 Last Admin: 03/14/20 20:16 Dose: 250 mcg Documented by: Diltiazem HCl (Diltiazem) 10 mg IVPUSH ONETIME ONE Stop: 03/16/20 05:41 Last Admin: 03/16/20 05:55 Dose: 10 mg Documented by: Diltiazem HCl (Cardizem) 60 mg PO Q6HR [facility] Last Admin: 03/18/20 05:19 Dose: Not Given Documented by: Enoxaparin Sodium (Lovenox) 40 mg SUBCUT Q24H [facility] Last Admin: 03/17/20 17:41 Dose: 40 mg Documented by: Enoxaparin Sodium (Lovenox) 30 mg SUBCUT Q24H [facility] Last Admin: 03/18/20 17:43 Dose: 30 mg Documented by: Furosemide (Lasix) 20 mg IVPUSH NOW ONE Stop: 03/16/20 09:15 Last Admin: 03/16/20 09:33 Dose: 20 mg Documented by: Furosemide (Lasix) 20 mg IVPUSH ONETIME ONE Stop: 03/17/20 10:16 Last Admin: 03/17/20 11:11 Dose: 20 mg Documented by: Furosemide (Lasix) 20 mg IVPUSH ONETIME ONE Stop: 03/17/20 18:01 Last Admin: 03/17/20 17:41 Dose: 20 mg Documented by: Furosemide (Lasix) 20 mg IVPUSH ONETIME ONE Stop: 03/20/20 10:01 Last Admin: 03/20/20 09:32 Dose: 20 mg Documented by: Furosemide (Lasix) 20 mg IVPUSH ONETIME ONE Stop: 03/21/20 09:02 Last Admin: 03/21/20 09:18 Dose: 20 mg Documented by: Furosemide (Lasix) 20 mg IVPUSH ONETIME ONE Stop: 03/21/20 20:01 Last Admin: 03/21/20 19:22 Dose: Not Given Documented by: Furosemide (Lasix) 20 mg IVPUSH ONETIME ONE Stop: 03/22/20 04:48 Last Admin: 03/22/20 05:05 Dose: 20 mg Documented by: Furosemide (Lasix) 20 mg IVPUSH ONETIME ONE Stop: 03/22/20 09:51 Last Admin: 03/22/20 10:54 Dose: 20 mg Documented by: Heparin Sodium (Porcine) (Heparin Sodium) Confirm Administered Dose 5,000 units .ROUTE .STK-MED ONE Stop: 03/18/20 05:45 Last Admin: 03/18/20 07:17 Dose: Not Given Documented by: Hydrochlorothiazide (Hydrochlorothiazide) 25 mg PO DAILY [facility] Last Admin: 03/17/20 08:38 Dose: 25 mg Documented by: Ceftriaxone Sodium 2 gm/ (Sodium Chloride) 50 mls @ 100 mls/hr IV ONETIME ONE Stop: 03/14/20 16:07 Last Admin: 03/14/20 18:00 Dose: 100 mls/hr Documented by: Ceftriaxone Sodium 1 gm/ (Sodium Chloride) 50 mls @ 100 mls/hr IV Q24H [facility] Last Admin: 03/17/20 16:49 Dose: 100 mls/hr Documented by: Doxycycline Hyclate 100 mg/ (Sodium Chloride) 100 mls @ 100 mls/hr IV Q12H [facility] Last Admin: 03/16/20 17:55 Dose: 100 mls/hr Documented by: Sodium Chloride (Normal Saline) 1,000 mls @ 125 mls/hr IV ASDIRECTED [facility] Last Admin: 03/15/20 04:17 Dose: 125 mls/hr Documented by: Sodium Chloride (Normal Saline) 100 mls @ 3 mls/sec IV ASDIRECTED [facility] Last Admin: 03/14/20 18:16 Dose: 3 mls/sec Documented by: Lactated Ringer's (Ringers, Lactated) 500 mls @ 999 mls/hr IV .BOLUS ONE Stop: 03/14/20 20:30 Last Admin: 03/14/20 20:08 Dose: 999 mls/hr Documented by: Diltiazem HCl 100 mg/ Sodium (Chloride) 100 mls @ 5 mls/hr IV TITRATE [facility]; Protocol Stop: 03/17/20 16:00 Last Admin: 03/17/20 11:12 Dose: 10 mg/hr, 10 mls/hr Documented by: Levofloxacin/Dextrose 750 mg/ (Premix) 150 mls @ 100 mls/hr IV Q24H [facility] Last Admin: 03/16/20 19:24 Dose: 100 mls/hr Documented by: Sodium Chloride (Normal Saline) 1,000 mls @ 500 mls/hr IV ONETIME ONE Stop: 03/17/20 09:44 Last Admin: 03/17/20 07:48 Dose: 500 mls/hr Documented by: Sodium Chloride (Normal Saline) 1,000 mls @ 100 mls/hr IV ASDIRECTED [facility] Last Admin: 03/17/20 09:44 Dose: 100 mls/hr Documented by: Levofloxacin/Dextrose 750 mg/ (Premix) 150 mls @ 100 mls/hr IV Q48H [facility] Last Admin: 03/18/20 17:44 Dose: 100 mls/hr Documented by: Propofol (Diprivan 100 Ml) Confirm Administered Dose 100 mls @ as directed .RO KARL[place] .STK-MED ONE Stop: 03/18/20 06:01 Last Admin: 03/18/20 07:17 Dose: Not Given Documented by: Sodium Chloride (Normal Saline) 500 mls @ 999 mls/hr IV ASDIRECTED [facility] Stop: 03/18/20 07:01 Ceftazidime 1 gm/ Sodium (Chloride) 50 mls @ 100 mls/hr IV Q8HR [facility] Vancomycin HCl 1.5 gm/ Sodium (Chloride) 250 mls @ 167 mls/hr IV ONETIME ONE Stop: 03/18/20 08:59 Last Admin: 03/18/20 08:13 Dose: 167 mls/hr Documented by: Vancomycin HCl 1.25 gm/ Sodium (Chloride) 250 mls @ 167 mls/hr IV Q24H [facility] Last Admin: 03/20/20 08:44 Dose: 167 mls/hr Documented by: Sodium Chloride (Normal Saline) 500 mls @ 999 mls/hr IV ASDIRECTED ONE Stop: 03/18/20 07:45 Last Admin: 03/18/20 07:20 Dose: 999 mls/hr Documented by: Ceftazidime 1 gm/ Sodium (Chloride) 50 mls @ 100 mls/hr IV Q8H [facility] Stop: 03/18/20 14:30 Last Admin: 03/18/20 09:21 Dose: Not Given Documented by: Ceftazidime 1 gm/ Sodium (Chloride) 50 mls @ 100 mls/hr IV Q8H [facility] Last Admin: 03/22/20 08:14 Dose: 100 mls/hr Documented by: Potassium Chloride 20 meq/Lidocaine HCl 2 ml/ Sodium Chloride 112 mls @ 56 mls/hr IV Q2H [facility] Stop: 03/19/20 13:59 Last Admin: 03/19/20 13:10 Dose: 56 mls/hr Documented by: Potassium Chloride 20 meq/Lidocaine HCl 2 ml/ Sodium Chloride 112 mls @ 56 mls/hr IV Q2H [facility] Stop: 03/20/20 13:59 Last Admin: 03/20/20 14:01 Dose: 56 mls/hr Documented by: Levofloxacin/Dextrose 750 mg/ (Premix) 150 mls @ 100 mls/hr IV Q24H [facility] Last Admin: 03/21/20 13:54 Dose: 100 mls/hr Documented by: Iopamidol (Isovue-370 (76%)) 100 ml IV . DIRECTED [facility] Last Admin: 03/14/20 18:16 Dose: 100 ml Documented by: Methylprednisolone Sodium Succinate (Solu-Medrol) 125 mg IVPUSH ONETIME ONE Stop: 03/14/20 14:14 Last Admin: 03/14/20 14:41 Dose: 125 mg Documented by: Methylprednisolone Sodium Succinate (Solu-Medrol) 40 mg IVPUSH Q6H [facility] Methylprednisolone Sodium Succinate (Solu-Medrol) 40 mg IVPUSH Q6H [facility] Last Admin: 03/18/20 08:15 Dose: 40 mg Documented by: Methylprednisolone Sodium Succinate (Solu-Medrol) 40 mg IVPUSH ONETIME ONE Stop: 03/14/20 19:00 Last Admin: 03/14/20 19:15 Dose: 40 mg Documented by: Methylprednisolone Sodium Succinate (Solu-Medrol) 40 mg IVPUSH Q6H [facility] Stop: 03/21/20 23:59 Last Admin: 03/21/20 20:53 Dose: 40 mg Documented by: Pantoprazole Sodium (Protonix) 40 mg PO ACBREAKFAST [facility] Last Admin: 03/17/20 07:51 Dose: 40 mg Documented by: Pantoprazole Sodium (Protonix Iv) 40 mg IVPUSH DAILY [facility] Last Admin: 03/21/20 09:09 Dose: 40 mg Documented by: Propofol (Diprivan 20 Ml) Confirm Administered Dose 200 mg .ROUTE .STK-MED ONE Stop: 03/22/20 12:03
--- NOTE | 2020-03-22 14:20 | ANES ---
DATE OF SERVICE: 03/22/2020 Angie is a 70-year-old female patient of Andrea Gómez in our Intensive Care Unit, GRECIA number is [id number]. Our engraver tire mold today, Dr. Oskar Salazar requested me to consult patient for intubation due to respiratory distress and elevated carbon dioxide levels and blood gas exam. Upon arrival, I found a 70-year-old female patient who was somewhat responsive. I had intubated this patient prior within the last week and she was unresponsive at the last time. I informed her that we were going to place the endotracheal tube and it sounds like they have been having discussions about not placing the endotracheal tube, but she is a full code at this time and the family has agreed to have her placed on the ventilator, so again I informed her that it would make her sleepy and found no contraindications to placement of the endotracheal tube. I dosed her with 80 mg of propofol and was able to visualize the vocal cords with a MAC3 blade with cricoid pressure. After pre-oxygenation, I placed a #8 endotracheal tube to 24 at the lip. She tolerated that quite easily. I know that I did use the bougie to place last time, visualization was much better this time. Vital signs initially remained within normal limits. She did dip her blood pressure to 70 systolic, but was slowly recovering from that after the procedure was completed. She had bilateral breath sounds throughout, equal chest rise. We then secured the tube at 24 at the lip. She tolerated the procedure quite well. Please refer to nurse's notes for vitals throughout the procedure and we will maintain the arterial line that was placed prior which seems to be accurate with the cuff pressures. Again, thank you for the consult. Andrea Hunter CRNA /[id number]
[2020-03-22 15:35] VITALS: BP 100/49; PULSE 99
--- NOTE | 2020-03-24 09:14 | CR ---
CHEST: Portable 03/22/2020 4:41 AM CLINICAL HISTORY:Extubation COMPARISON:03/21/2020 FINDINGS: Heart is enlarged. Pulmonary vascularity is normal. Patient has persistent bilateral pleural effusions right greater than left.. These are felt to be unchanged considering a lesser degree of inspiration. There has been previous sternotomy and aortic stent placement. Impression: Endotracheal extubation Bilateral pleural effusions right greater than left. There is some airspace disease in both lower lung rodriguez felt to be compressive atelectasis
--- NOTE | 2020-03-24 09:23 | CR ---
CHEST: Normal 03/22/2020 at 12:22 PM CLINICAL HISTORY:ET tube position COMPARISON:Earlier same day FINDINGS: Patient has been recently intubated. The endotracheal tube is in the mid trachea. The heart is enlarged. Pulmonary vascularity is normal. Patient has bilateral pleural effusions right greater than left. These are similar to the prior study. Impression: Re-intubation Bilateral pleural effusions right greater than left
== END 2020-03-22 14:20 | DRG 208 ==
LOC: JP.ED 14:07 → JP.ICU 15:59
PROVIDERS: ADMIT Hospitalist; ATTEND Internal Medicine
PROC: 0BH17EZ Insertion of Endotracheal Airway into Trachea, Via Natural or Artificial Opening (ICD-10-PCS; principal; 2020-03-18)
PROC: 5A1945Z Respiratory Ventilation, 24-96 Consecutive Hours (ICD-10-PCS; 2020-03-18)
PROC: 5A09457 Assistance with Respiratory Ventilation, 24-96 Consecutive Hours, Continuous Positive Airway Pressure (ICD-10-PCS; 2020-03-18)
PROC: 0BH17EZ Insertion of Endotracheal Airway into Trachea, Via Natural or Artificial Opening (ICD-10-PCS; 2020-03-22)
DX: J96.21 Acute and chronic respiratory failure with hypoxia (principal); J18.9 Pneumonia, unspecified organism; J44.0 Chronic obstructive pulmonary disease with (acute) lower respiratory infection; J44.1 Chronic obstructive pulmonary disease with (acute) exacerbation; R79.89 Other specified abnormal findings of blood chemistry; I50.30 Unspecified diastolic (congestive) heart failure; J96.22 Acute and chronic respiratory failure with hypercapnia; Z20.828 Contact with and (suspected) exposure to other viral communicable diseases; I48.91 Unspecified atrial fibrillation; I08.3 Combined rheumatic disorders of mitral, aortic and tricuspid valves; E78.00 Pure hypercholesterolemia, unspecified; F41.9 Anxiety disorder, unspecified; F32.9 Major depressive disorder, single episode, unspecified; R10.9 Unspecified abdominal pain; Z86.79 Personal history of other diseases of the circulatory system; Z88.0 Allergy status to penicillin; Z79.82 Long term (current) use of aspirin; Z79.890 Hormone replacement therapy; Z79.899 Other long term (current) drug therapy; Z99.81 Dependence on supplemental oxygen; Z98.890 Other specified postprocedural states
CPT/HCPCS: 36415; 36600; 71046 ×2; 80053; 82803; 83605; 83880; 84145; 84484; 85025; 94640 ×2; 96374; 99285 ×2; J2930; 51702; 71045; 71045-26; 71250; 71275; 80048; 83735; 84443; 85027; 86140; 87040; 93306; 94002; 94003; 94660; 94799; A9270-GY; C9113; J0696; J0713; J1160; J1644; J1650; J1940; J1956; J2001; J2060; J2405; J2704; J2920; J3370; J3480; J3490; J7030; J7040; J7050; J7512; J7620-GY; Q9967; U0002